=== PATIENT | male | born 1960 | race Caucasian/White ===

== ENCOUNTER 2016-11-26 23:42 | Emergency (ER) | payer MEDICARE ==
[2016-11-26] MEDS ORDERED: Ondansetron INJ* 2 MG/ML VIAL IV ONE (23:45)
[2016-11-26] MEDS ORDERED: HYDROmorphone* 1 MG/ML 1 ML SYR IV ONE (23:45)
[2016-11-26] MEDS ORDERED: NS 0.9% 1000 ML* 1,000 ML IV ONE (23:45)
[2016-11-27 00:36] LABS: Hematocrit 45 % (42-52); Mean Corpuscular HGB Conc 33 g/dl (31-36); Mean Corpuscular Hemoglobin 31 pg (27-31); Mean Corpuscular Volume 92 fL (80-94); Mean Platelet Volume 11 um3 (7.4-10.4); Red Cell Distribution Width 18 % (10.5-15); White Blood Count 11.4 10^3/ul (3.5-10.8)
[2016-11-27 00:42] LABS: Albumin 4.1 g/dL (3.2-5.2); BUN/Creatinine Ratio 13.4 (8-20); C Reactive Protein 8.36 mg/L (< 5.00); Calcium 9.7 mg/dL (8.6-10.3); EGFR African American 71.2 (>60); EGFR Non-African American 55.3 (>60); Globulin 3.3 g/dL (2-4); Total Bilirubin 0.9 mg/dL (0.2-1.0); Total Protein 7.4 g/dL (6.4-8.9)
[2016-11-27] MEDS ORDERED: Iodixanol* (CONTRAST) 320 MG/ML 100 ML SDV IV ONE (01:06)
[2016-11-27] MEDS ORDERED: HYDROmorphone* 1 MG/ML 1 ML SYR IV SLOW PU ONE (01:39)
[2016-11-27] MEDS ORDERED: HYDROmorphone* 1 MG/ML 1 ML SYR IV ONE (02:11)
[2016-11-27 03:58] LABS: Uric Acid 8.7 mg/dL (4.4-7.6)
[2016-11-27] MEDS ORDERED: Colchicine* 0.6 MG TAB PO ONE (04:02)
[2016-11-27] MEDS ORDERED: HYDROcodone/ACETAMIN 5-325 MG* 1 TAB PO ONE (04:04)
--- NOTE | 2016-11-27 04:16 | ED ---
IPrasanna,Lali, scribed for Gabby Fisher MD on 11/27/16 at 0004 . Lower Extremity - HPI Summary HPI Summary: This 55 y/o male presents to ED via ambulance for acute on chronic RLE leg pain since 1400 PM. Pt was able to ambulate fine without much problem earlier today, except for his chronic hip pain. He experienced sudden onset of pain at RLE ankle/leg about 1400 PM without any known trauma. PMHx is significant for DVT, DM, CAD s/p stents, CHF, and afib, with reported "fluid build up" per pt. Pt is currently on anticoagulant. - History of Current Complaint Chief Complaint: EDShortnessOfBreath Stated Complaint: RT LEG PAIN Time Seen by Provider: 11/26/16 23:45 Hx Obtained From: Patient, Medical Records Mechanism Of Injury: Unknown Onset of Pain: Immediate Pain Intensity: 9 Pain Scale Used: 0-10 Numeric Timing: Constant Location: Is Discrete @ - RLE Character Of Pain: Sharp Aggravating Factor(s): Standing Alleviating Factor(s): Rest Able to Bear Weight: No - Allergies/Home Medications Allergies/Adverse Reactions: Allergies Allergy/AdvReac Type Severity Reaction Status Date / Time No Known Allergies Allergy Verified 11/27/16 01:00 Home Medications: Home Medications Docusate CAP* [Colace Cap*] 100 mg PO BID 11/27/16 [History Confirmed 11/27/16] PMH/Surg Hx/FS Hx/Imm Hx Endocrine/Hematology History: Reports: Hx Anticoagulant Therapy - coumadin, Hx Diabetes Denies: Hx Blood Disorders, Hx Blood Transfusions, Hx Bone Marrow Disease, Hx Systemic Lupus Erythematosus, Hx Sickle Cell Disease, Hx Thyroid Disease, Hx Anemia, Hx Unexplained Bleeding, Other Endocrine/Hematological Disorders Cardiovascular History: Reports: Hx Angioplasty, Hx Auto Implanted Cardiovert Defib - defibrillator, Hx Congestive Heart Failure, Hx Coronary Artery Disease, Hx Hypertension, Hx Pacemaker/ICD, Other Cardiovascular Problems/Disorders - Pt states one valve doesn't function anymore Denies: Hx Aneurysm, Hx Angina, Hx Cardiac Arrest, Hx Cardiomegaly, Hx Congenital Heart Disease, Hx Deep Vein Thrombosis, Hx Embolism, Hx Hypercholesterolemia, Hx Hypotension, Hx Peripheral Vascular Disease, Hx Rheumatic Fever, Hx Syncope, Hx Valvular Heart Disease Respiratory History: Reports: Hx Chronic Bronchitis - last couple of months not current, Hx Chronic Obstructive Pulmonary Disease (COPD), Hx Pneumonia - winter 2009, Hx Sleep Apnea - uses O2 to sleep at night Denies: Hx Asthma, Hx Cystic Fibrosis, Hx Lung Cancer, Hx Pleural Effusion, Hx Pulmonary Edema, Hx Pulmonary Embolism, Hx Seasonal Allergies, Other Respiratory Problems/Disorders GI History: Reports: Hx Hiatal Hernia, Other GI Disorders - hernia in upper abdomen Denies: Hx Cirrhosis, Hx Crohn's Disease, Hx Diverticulosis, Hx Gall Bladder Disease, Hx Gastroesophageal Reflux Disease, Hx Gastrointestinal Bleed, Hx Irritable Bowel, Hx Jaundice, Hx Obstructive Bowel, Hx Ileostomy, Hx Pyloric Stenosis, Hx Ulcer History: Denies: Hx Acute Renal Failure, Hx Benign Prostatic Hyperplasia, Hx Chronic Renal Failure, Hx Dialysis, Hx Kidney Infection, Hx Kidney Stones, Hx Renal Disease, Other Problems/Disorders Musculoskeletal History: Reports: Other Musculoskeletal History - hiatal hernia Sensory History: Reports: Hx Contacts or Glasses - does not have glasses with him Denies: Hx Cataracts, Hx Eye Injury, Hx Eye Prosthesis, Hx Glaucoma, Hx Macular Degeneration, Hx Vision Problem, Hx Deafness, Hx Hearing Aid, Hx Hearing Problem, Other Sensory Impairments Opthamlomology History: Reports: Hx Contacts or Glasses - does not have glasses with him Denies: Hx Cataracts, Hx Eye Injury, Hx Eye Prosthesis, Hx Glaucoma, Hx Macular Degeneration, Hx Vision Problem, Other Sensory Impairments Neurological History: Denies: Hx Dementia, Hx Developmental Delay, Hx Headaches, Hx Migraine, Hx Nerve Disease, Hx Seizures, Hx Spinal Cord Injury, Hx Transient Ischemic Attacks (TIA), Other Neuro Impairments/Disorders Psychiatric History: Reports: Hx Substance Abuse - NONE X 5 YRS, Other Psychiatric Issues/Disorders - former alcoholic - Surgical History Surgery Procedure, Year, and Place: defibrillator. thrombectomy (lower leg scars) Hx Anesthesia Reactions: No Infectious Disease History: No Infectious Disease History: Denies: Hx Clostridium Difficile, Hx Hepatitis, Hx Human Immunodeficiency Virus (HIV), Hx Shingles, Hx Tuberculosis, Traveled Outside the [place] in Last 30 Days - Social History Alcohol Use: None Substance Use Type: Reports: None Smoking Status (MU): Heavy Every Day Tobacco Smoker Type: Cigarettes Length of Time of Smoking/Using Tobacco: 30+ years Have You Smoked in the Last Year: Yes Review of Systems Negative: Fever Positive: Shortness Of Breath Positive: Other - RLE pain All Other Systems Reviewed And Are Negative: Yes Physical Exam Triage Information Reviewed: Yes Vital Signs On Initial Exam: Initial Vitals Temp Pulse Resp BP Pulse Ox 98.3 F 83 15 96/55 97 11/26/16 23:48 11/26/16 23:48 11/26/16 23:48 11/26/16 23:48 11/26/16 23:48 Vital Signs Reviewed: Yes Appearance: Positive: Pain Distress Head/Face: Positive: Normal Head/Face Inspection Eyes: Positive: EOMI, AMANDA Neck: Positive: Supple, Nontender Cardiovascular: Positive: RRR, Other - Faint pulse at RLE DP Abdomen Description: Positive: Nontender, Soft Musculoskeletal: Positive: Other - diffusely tender at RLE foot Neurological: Positive: Sensory/Motor Intact, Alert, Oriented to Person Place, Time Psychiatric: Positive: Affect/Mood Appropriate AVPU Assessment: Alert Diagnostics - Vital Signs Vital Signs Temp Pulse Resp BP Pulse Ox 11/26/16 23:48 98.3 F 83 15 96/55 97 - Laboratory Lab Results: Lab Results 11/27/16 11/27/16 11/27/16 Range/Units 00:08 00:08 00:08 WBC 11.4 H (3.5-10.8) 10^3/ul RBC 4.90 (4.0-5.4) 10^6/ul Hgb 15.0 (14.0-18.0) g/dl Hct 45 (42-52) % MCV 92 (80-94) fL MCH 31 (27-31) pg MCHC 33 (31-36) g/dl RDW 18 H (10.5-15) % Plt Count 105 L (150-450) 10^3/ul MPV 11 H (7.4-10.4) um3 Neut % (Auto) 81.7 (38-83) % Lymph % (Auto) 9.2 L (25-47) % [place] % (Auto) 7.4 (1-9) % Eos % (Auto) 1.1 (0-6) % Baso % (Auto) 0.6 (0-2) % Absolute Neuts (auto) 9.3 H (1.5-7.7) 10^3/ul Absolute Lymphs (auto) 1.1 (1.0-4.8) 10^3/ul Absolute Monos (auto) 0.8 (0-0.8) 10^3/ul Absolute Eos (auto) 0.1 (0-0.6) 10^3/ul Absolute Basos (auto) 0.1 (0-0.2) 10^3/ul Absolute Nucleated RBC 0.01 10^3/ul Nucleated RBC % 0.1 Sodium 127 L (133-145) mmol/L Potassium 4.0 (3.5-5.0) mmol/L Chloride 92 L (101-111) mmol/L Carbon Dioxide 26 (22-32) mmol/L Anion Gap 9 (2-11) mmol/L BUN 18 (6-24) mg/dL Creatinine 1.34 H (0.67-1.17) mg/dL Est GFR ( Amer) 71.2 (>60) Est GFR (Non-Af Amer) 55.3 (>60) BUN/Creatinine Ratio 13.4 (8-20) Glucose 258 H (70-100) mg/dL Lactic Acid 2.4 H* (0.5-2.0) mmol/L Uric Acid 8.7 H (4.4-7.6) mg/dL Calcium 9.7 (8.6-10.3) mg/dL Total Bilirubin 0.90 (0.2-1.0) mg/dL AST 17 (13-39) U/L ALT 24 (7-52) U/L Alkaline Phosphatase 89 (34-104) U/L C-Reactive Protein 8.36 H (< 5.00) mg/L Total Protein 7.4 (6.4-8.9) g/dL Albumin 4.1 (3.2-5.2) g/dL Globulin 3.3 (2-4) g/dL Albumin/Globulin Ratio 1.2 (1-3) Result Diagrams: 11/27/16 00:08 11/27/16 00:08 Lab Statement: Any lab studies that have been ordered have been reviewed, and results considered in the medical decision making process. - Radiology RLE ankle Xray Interpretation: No Acute Changes Radiology Interpretation Completed By: ED Physician - CT CTA RLE CT Interpretation: Positive (See Comments) - Right common iliac artery occlusion , possibly chronic, with small right external iliac artery. Bilateral artery atherosclerosis with good bilat 3 vessel runoff to and patent dorsalis pedis arteries bilat. CT Interpretation Completed By: Radiologist Lower Extremity Course/Dx - Course Course Of Treatment: 55 yo male smoker with severe pvd and cad arrived with severe acute pain in right foot with faint dp pulses but complaining that he knew that his right artery (iliac) was blocked. An emergent CTA was done showing this blockage but with adequate 3 vessel flow distally. Pt required several doses of pain meds to get a good history/exam which ended up showing very localized swelling/pain to lateral malleolus on the right. uric acid was elevated, Dr. Quispe did consult and agreed with this diagnosis. Given pts chronic renal insufficiency pt was started on colchicine and medrol dosepack with pain meds - Diagnoses Provider Diagnoses: Gout - Physician Notifications Discussed Care Of Patient With: Darrel Hilton Time Discussed With Above Provider: 03:56 Discharge - Discharge Plan Condition: Stable Disposition: HOME Prescriptions: Colchicine* [Colcrys*] 0.6 mg PO DAILY #14 tab HYDROcodone/ACETAMIN 5-325 MG* [[place] 5-325 TAB*] 1 tab PO Q8H PRN #14 tab MDD 3 PRN Reason: Pain Methylprednisolone [Medrol Dosepak 4 MG*] 0 mg PO .SEE SANRDO INSTRUCTION #1 sandro Patient Education Materials: Gout (ED) Referrals: Jamari Rangel MD [Primary Care Provider] - 2 Days The documentation as recorded by the Prasanna couch Soohyun accurately reflects the service I personally performed and the decisions made by me, Gabby Fisher MD.
--- NOTE | 2016-11-27 04:53 | CONSULT ---
Consult Consult: PCP: Mitul Rangel MD Date/Time of Evaluation: [id number] Reason for Consult: non-traumatic severe R foot pain HPI: Mr Cam is a 55YO overweight male HX LLE arterial clot s/p thrombectomy, chronic AFIB, ischemic cardiomyopathy EF <20%, AICD placement, HTN, HLD, CAD/ stent x3, CVA x2 who present with onset of R ankle/foot tingling around noon progressing to severe, unbearable, 10/10 pain by 1700. He denies injury or change in activity. He denies HX gout, but thinks his uncle may have had it. He denies F/C, N/V, change in bowel/bladder, chest pain, SOB, or other issues. He did report some SOB upon arrival, but state he thinks now it was just being anxious about the pain. PMedHx as above Ambulatory Orders Aspirin EC Low Dose* [Ecotrin EC Low Dose 81 MG*] 81 mg PO QAM 07/11/14 Atorvastatin* [Lipitor 80 MG*] 80 mg PO DAILY 07/11/14 Cyanocobalamin TAB* [Vitamin B12 TAB*] 1,000 mcg PO DAILY 07/11/14 Lisinopril TAB* [Prinivil TAB 10 MG*] 10 mg PO QAM 07/11/14 Metoprolol Tartrate TAB* [Lopressor TAB*] 150 mg PO QAM 07/11/14 Metoprolol Tartrate TAB* [Lopressor TAB*] 150 mg PO QPM 07/11/14 Polyethylene Glycol 3350* [Miralax*] 17 gm PO DAILY 07/11/14 Warfarin TAB(*) [Coumadin TAB(*)] 2.5 mg PO SEE INSTRUCTIONS 07/11/14 Warfarin TAB(*) [Coumadin TAB(*)] 5 mg PO SEE INSTRUCTIONS 07/11/14 Albuterol HFA INHALER* [Ventolin HFA Inhaler*] 2 puff INH Q4H PRN 09/14/14 Omeprazole CAP* [Prilosec CAP* 20 MG] 20 mg PO DAILY 09/14/14 Fluticasone-Salmeterol 250-50* 1 puff INH BID 04/25/15 Magnesium 250 mg PO DAILY 04/25/15 Spironolactone [Aldactone 25 MG-] 25 mg PO Q48HR 04/25/15 Torsemide 80 mg PO BID 04/25/15 glipiZIDE TAB.XL* [Glucotrol Xl*] 10 mg PO DAILY 04/25/15 Colchicine* [Colcrys*] 0.6 mg PO DAILY #14 tab 11/27/16 Docusate CAP* [Colace Cap*] 100 mg PO BID 11/27/16 HYDROcodone/ACETAMIN 5-325 MG* [[place] 5-325 TAB*] 1 tab PO Q8H PRN #14 tab MDD 3 11/27/16 Methylprednisolone [Medrol Dosepak 4 MG*] 0 mg PO .SEE SANDRO INSTRUCTION #1 sandro Allergies No Known Allergies Allergy (Verified 11/27/16 01:00) ROS: as above, otherwise reviewed and all were negative Constitutional: NAD, normally developed, overweight white male vitals: Vital Signs Temp 36.8 C 11/26/16 23:48 Pulse 76 11/27/16 03:00 Resp 16 11/27/16 03:00 BP 94/45 11/27/16 03:00 Pulse Ox 93 11/27/16 03:00 Intake & Output 11/26/16 11/26/16 11/27/16 11:59 23:59 11:59 Intake Total 1000 Balance 1000 Weight 88.178 kg 87.997 kg Intake: IV Fluids 1000 Musculoskeletal: general: grossly intact; exquisite tenderness to palpation of swelling around the lateral maleolus, remainder of foot is non-tender but there is severe pain with minimal ROM of the ankle; 1+ R DP/ trace R PT Integumental: no wounds around the R ankle/foot extremity is warm & dry with good color, capillary refill is <2seconds Psychiatric orientation: AA&O to PPS affect: calm mood: cooperative eye contact: good content: reliable responses: timely insight: good Testing: Lab Results 11/27/16 11/27/16 11/27/16 Range/Units 00:08 00:08 00:08 WBC 11.4 H (3.5-10.8) 10^3/ul RBC 4.90 (4.0-5.4) 10^6/ul Hgb 15.0 (14.0-18.0) g/dl Hct 45 (42-52) % MCV 92 (80-94) fL MCH 31 (27-31) pg MCHC 33 (31-36) g/dl RDW 18 H (10.5-15) % Plt Count 105 L (150-450) 10^3/ul MPV 11 H (7.4-10.4) um3 Neut % (Auto) 81.7 (38-83) % Lymph % (Auto) 9.2 L (25-47) % [place] % (Auto) 7.4 (1-9) % Eos % (Auto) 1.1 (0-6) % Baso % (Auto) 0.6 (0-2) % Absolute Neuts (auto) 9.3 H (1.5-7.7) 10^3/ul Absolute Lymphs (auto) 1.1 (1.0-4.8) 10^3/ul Absolute Monos (auto) 0.8 (0-0.8) 10^3/ul Absolute Eos (auto) 0.1 (0-0.6) 10^3/ul Absolute Basos (auto) 0.1 (0-0.2) 10^3/ul Absolute Nucleated RBC 0.01 10^3/ul Nucleated RBC % 0.1 Sodium 127 L (133-145) mmol/L Potassium 4.0 (3.5-5.0) mmol/L Chloride 92 L (101-111) mmol/L Carbon Dioxide 26 (22-32) mmol/L Anion Gap 9 (2-11) mmol/L BUN 18 (6-24) mg/dL Creatinine 1.34 H (0.67-1.17) mg/dL Est GFR ( Amer) 71.2 (>60) Est GFR (Non-Af Amer) 55.3 (>60) BUN/Creatinine Ratio 13.4 (8-20) Glucose 258 H (70-100) mg/dL Lactic Acid 2.4 H* (0.5-2.0) mmol/L Uric Acid 8.7 H (4.4-7.6) mg/dL Calcium 9.7 (8.6-10.3) mg/dL Total Bilirubin 0.90 (0.2-1.0) mg/dL AST 17 (13-39) U/L ALT 24 (7-52) U/L Alkaline Phosphatase 89 (34-104) U/L C-Reactive Protein 8.36 H (< 5.00) mg/L Total Protein 7.4 (6.4-8.9) g/dL Albumin 4.1 (3.2-5.2) g/dL Globulin 3.3 (2-4) g/dL Albumin/Globulin Ratio 1.2 (1-3) Impression: 55M with gradual onset of R foot pain focused on the talo-tibial joint with a uric acid of 8.7 and a CTA of the extremity showing a R iliofemoral occlusion with reconstitution of flow distally and good flow to the DP DIAGNOSIS & PLAN Primary gout, initial attack : colchicine : short steroid taper : avoid high protein foods and alcohol : follow up with PCP in <1 week : return to ED for uncontrolled pain, palor and coldness of the extremity, or other issues he feels warrant emergency evaluation
[2016-11-27 05:22] VITALS: BP 100/54
--- NOTE | 2016-11-27 09:09 | RAD ---
Indication: Sudden onset severe RIGHT leg pain. Known RIGHT leg stenosis. Comparison: June 22, 2009 ankle brachial index. September 14, [address] Technique: CT angiogram abdominal aorta from the level of the renal arteries through the bilateral lower extremities. 125 mL Visipaque 320 contrast administered IV. Multiplanar reformation with maximum intensity projection. 3-D arterial volume rendering. REPORT: ABDOMINAL AORTA: Normal diameter infrarenal abdominal aorta with mild calcific and noncalcific plaque without hemodynamic significant stenosis resulting. Negative for hemodynamic significant stenosis of the solitary bilateral renal arteries. Normal opacification of the inferior mesenteric artery. RIGHT ILIAC and LOWER EXTREMITY ARTERIES: Occlusive thrombosis of the RIGHT common iliac artery. Collateral reconstitution of the RIGHT external and internal iliac arteries. However the reconstituted arteries are diminutive in size. Diminutive size of the RIGHT external and internal iliac arteries is unchanged compared with the September 14, [address] Calcific and noncalcific plaque at the adductor canal with resulting approximate 50% stenosis of the distal segment of the superficial femoral artery. Unremarkable popliteal artery. Three-vessel runoff to the RIGHT ankle. LEFT ILIAC and LOWER EXTREMITY ARTERIES: Mild to moderate calcific and noncalcific plaque at the LEFT common iliac artery with approximate 30% stenoses resulting. Approximate 20% stenosis at the LEFT common femoral artery. Approximate 50% stenosis at the distal LEFT superficial femoral artery at the adductor canal. Approximate 30% short segment stenosis at the supra geniculate popliteal artery. Three-vessel runoff to the LEFT ankle. NON-VASCULAR FINDINGS: Unchanged 1.8 cm hypodense cortical lesion at the posterior midpole the RIGHT kidney compared with a CT from September 14, 2014 without concern. No suspicious abnormality of the visualized alimentary tract. Negative for suspicious osseous lesions. IMPRESSION: 1. 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 Collateral reconstitution with three-vessel runoff to the ankle as described. Approximate 50% stenosis of the distal segment of the RIGHT superficial femoral artery. Three-vessel runoff to the RIGHT ankle. 2. Approximate 30% LEFT common iliac, 20% LEFT common femoral, 50% LEFT superficial femoral artery, 30% suprageniculate popliteal artery stenosis. Three-vessel runoff to the LEFT ankle.
--- NOTE | 2016-11-27 09:28 | RAD ---
Indication: RIGHT lateral malleolus pain. Sudden onset. Peripheral vascular disease. Comparison: CT angiogram of the same day Technique: AP, mortise, and lateral views RIGHT ankle. Report: Normal articular alignment. Negative for fracture. Osteoarthritis most prominent at the navicula cuneiform articulations moderate in severity with osteophytosis, moderate joint space narrowing, and subchondral sclerosis and cystic change. Based on correlation with CT the arthropathy specifically involves the navicula lateral cuneiform articulation. Suggestion of small talocrural joint effusion with distention of the posterior recess. Soft tissue swelling about the ankle without significant focality. IMPRESSION: Negative for fracture or malalignment. Osteoarthritis.
== END 2016-11-27 04:50 | disposition home or self-care (01) ==
LOC: ED 23:42
DX: M10.9 Gout, unspecified (principal); M79.604 Pain in right leg; R06.02 Shortness of breath; F17.210 Nicotine dependence, cigarettes, uncomplicated
CPT/HCPCS: 36415; 73706; 80053; 83605; 84550; 85025; 86140; 99284; J1170; J2405; Q9967

== ENCOUNTER 2017-01-19 04:46 | Emergency (ER) | payer MEDICARE ==
[2017-01-19 04:51] VITALS: BP 96/61
[2017-01-19] MEDS ORDERED: NS 0.9% 1000 ML* 500 ML IV ONE (05:46)
[2017-01-19] MEDS ORDERED: HYDROmorphone INJ* 1 MG/ML CARPUJECT SYRINGE IV ONE (05:46)
[2017-01-19] MEDS ORDERED: Ondansetron INJ* 2 MG/ML VIAL IV ONE (05:46)
[2017-01-19] MEDS ORDERED: Colchicine* 0.6 MG TAB PO ONE (05:54)
[2017-01-19 06:22] LABS: Hematocrit 42 % (42-52); Hemoglobin 14.8 g/dl (14.0-18.0); Mean Corpuscular HGB Conc 35 g/dl (31-36); Mean Corpuscular Hemoglobin 32 pg (27-31); Mean Corpuscular Volume 92 fL (80-94); Mean Platelet Volume 11 um3 (7.4-10.4); Red Blood Count 4.61 10^6/ul (4.0-5.4); Red Cell Distribution Width 16 % (10.5-15); White Blood Count 10.2 10^3/ul (3.5-10.8)
[2017-01-19 06:38] LABS: Albumin 4.1 g/dL (3.2-5.2); BUN/Creatinine Ratio 9.7 (8-20); C Reactive Protein 16.51 mg/L (< 5.00); Calcium 9.8 mg/dL (8.6-10.3); EGFR African American 65.3 (>60); EGFR Non-African American 50.7 (>60); Globulin 3.3 g/dL (2-4); Potassium 3.6 mmol/L (3.5-5.0); Total Bilirubin 1.1 mg/dL (0.2-1.0); Total Protein 7.4 g/dL (6.4-8.9)
--- NOTE | 2017-01-19 06:50 | ED ---
Gerda Kearns Alfonso, scribed for Gabby Fisher MD on 01/19/17 at 0502 . Lower Extremity - HPI Summary HPI Summary: This patient is a 56 year old M presenting [facility] accompanied by with a chief complaint of right ankle pain since 2 days ago. The patient rates the pain 10/10 in severity. Symptoms aggravated by movement. Symptoms alleviated by rest. He cannot ambulate well. He reports a PCP appointment scheduled for tomorrow. PMHx includes gout and DM. - History of Current Complaint Chief Complaint: EDExtremityLower Stated Complaint: GOUT Time Seen by Provider: 01/19/17 04:57 Hx Obtained From: Patient Onset of Pain: Prior to Arrival Onset/Duration: Days - 2 Severity Currently: Severe Pain Intensity: 10 Pain Scale Used: 0-10 Numeric Location: Is Discrete @ - right ankle pain Aggravating Factor(s): Movement Alleviating Factor(s): Rest - Allergies/Home Medications Allergies/Adverse Reactions: Allergies Allergy/AdvReac Type Severity Reaction Status Date / Time No Known Allergies Allergy Verified 01/19/17 04:51 PMH/Surg Hx/FS Hx/Imm Hx Endocrine/Hematology History: Reports: Hx Anticoagulant Therapy - coumadin, Hx Diabetes Denies: Hx Blood Disorders, Hx Blood Transfusions, Hx Bone Marrow Disease, Hx Systemic Lupus Erythematosus, Hx Sickle Cell Disease, Hx Thyroid Disease, Hx Anemia, Hx Unexplained Bleeding, Other Endocrine/Hematological Disorders Cardiovascular History: Reports: Hx Angioplasty, Hx Auto Implanted Cardiovert Defib - defibrillator, Hx Congestive Heart Failure, Hx Coronary Artery Disease, Hx Hypertension, Hx Pacemaker/ICD, Other Cardiovascular Problems/Disorders - Pt states one valve doesn't function anymore Denies: Hx Aneurysm, Hx Angina, Hx Cardiac Arrest, Hx Cardiomegaly, Hx Congenital Heart Disease, Hx Deep Vein Thrombosis, Hx Embolism, Hx Hypercholesterolemia, Hx Hypotension, Hx Peripheral Vascular Disease, Hx Rheumatic Fever, Hx Syncope, Hx Valvular Heart Disease Respiratory History: Reports: Hx Chronic Bronchitis - last couple of months not current, Hx Chronic Obstructive Pulmonary Disease (COPD), Hx Pneumonia - winter 2009, Hx Sleep Apnea - uses O2 to sleep at night Denies: Hx Asthma, Hx Cystic Fibrosis, Hx Lung Cancer, Hx Pleural Effusion, Hx Pulmonary Edema, Hx Pulmonary Embolism, Hx Seasonal Allergies, Other Respiratory Problems/Disorders GI History: Reports: Hx Hiatal Hernia, Other GI Disorders - hernia in upper abdomen Denies: Hx Cirrhosis, Hx Crohn's Disease, Hx Diverticulosis, Hx Gall Bladder Disease, Hx Gastroesophageal Reflux Disease, Hx Gastrointestinal Bleed, Hx Irritable Bowel, Hx Jaundice, Hx Obstructive Bowel, Hx Ileostomy, Hx Pyloric Stenosis, Hx Ulcer History: Denies: Hx Acute Renal Failure, Hx Benign Prostatic Hyperplasia, Hx Chronic Renal Failure, Hx Dialysis, Hx Kidney Infection, Hx Kidney Stones, Hx Renal Disease, Other Problems/Disorders Musculoskeletal History: Reports: Other Musculoskeletal History - hiatal hernia Sensory History: Reports: Hx Contacts or Glasses - does not have glasses with him Denies: Hx Cataracts, Hx Eye Injury, Hx Eye Prosthesis, Hx Glaucoma, Hx Macular Degeneration, Hx Vision Problem, Hx Deafness, Hx Hearing Aid, Hx Hearing Problem, Other Sensory Impairments Opthamlomology History: Reports: Hx Contacts or Glasses - does not have glasses with him Denies: Hx Cataracts, Hx Eye Injury, Hx Eye Prosthesis, Hx Glaucoma, Hx Macular Degeneration, Hx Vision Problem, Other Sensory Impairments Neurological History: Denies: Hx Dementia, Hx Developmental Delay, Hx Headaches, Hx Migraine, Hx Nerve Disease, Hx Seizures, Hx Spinal Cord Injury, Hx Transient Ischemic Attacks (TIA), Other Neuro Impairments/Disorders Psychiatric History: Reports: Hx Substance Abuse - NONE X 5 YRS, Other Psychiatric Issues/Disorders - former alcoholic - Surgical History Surgery Procedure, Year, and Place: defibrillator. thrombectomy (lower leg scars) Hx Anesthesia Reactions: No Infectious Disease History: No Infectious Disease History: Denies: Hx Clostridium Difficile, Hx Hepatitis, Hx Human Immunodeficiency Virus (HIV), Hx Shingles, Hx Tuberculosis, Traveled Outside the [place] in Last 30 Days - Family History Known Family History: Positive: Cardiac Disease, Diabetes - Social History Alcohol Use: None Substance Use Type: Reports: None Smoking Status (MU): Heavy Every Day Tobacco Smoker Type: Cigarettes Length of Time of Smoking/Using Tobacco: 30+ years Have You Smoked in the Last Year: Yes Review of Systems Negative: Fever Positive: Other - right ankle pain All Other Systems Reviewed And Are Negative: Yes Physical Exam - Summary Physical Exam Summary: General: Well appearing, no pain distress Skin: Warm, Skin Color Reflects Adequate Perfusion, Dry Eyes: EOMI, AMANDA ENT: Pharynx normal, TMs normal Neck: Supple, nontender Respiratory: CTA, breath sounds present, no rhonchi, no wheezes, no rales Cardiovascular: IRR, no murmur, no rub, no gallop Abdomen: Soft, nontender, Non-distended, no guarding, no rebound Bowel: Present Musculoskeletal: Right lateral malleolus tenderness. Warm toes. Faint pulses in right foot. Neuro: Sensory/motor intact, A&Ox3, CN intact 2-12 Psych: Affect/mood appropriate Triage Information Reviewed: Yes Vital Signs On Initial Exam: Initial Vitals Temp Pulse Resp BP Pulse Ox 98.4 F 82 23 96/61 98 01/19/17 04:48 01/19/17 04:48 01/19/17 04:48 01/19/17 04:48 01/19/17 04:48 Vital Signs Reviewed: Yes Diagnostics - Vital Signs Vital Signs Temp Pulse Resp BP Pulse Ox 01/19/17 04:48 98.4 F 82 23 96/61 98 - Laboratory Lab Results: Lab Results 01/19/17 01/19/17 Range/Units 06:00 06:00 WBC 10.2 (3.5-10.8) 10^3/ul RBC 4.61 (4.0-5.4) 10^6/ul Hgb 14.8 (14.0-18.0) g/dl Hct 42 (42-52) % MCV 92 (80-94) fL MCH 32 H (27-31) pg MCHC 35 (31-36) g/dl RDW 16 H (10.5-15) % Plt Count 117 L (150-450) 10^3/ul MPV 11 H (7.4-10.4) um3 Neut % (Auto) 84.5 H (38-83) % Lymph % (Auto) 6.6 L (25-47) % [place] % (Auto) 7.6 (1-9) % Eos % (Auto) 0.8 (0-6) % Baso % (Auto) 0.5 (0-2) % Absolute Neuts (auto) 8.6 H (1.5-7.7) 10^3/ul Absolute Lymphs (auto) 0.7 L (1.0-4.8) 10^3/ul Absolute Monos (auto) 0.8 (0-0.8) 10^3/ul Absolute Eos (auto) 0.1 (0-0.6) 10^3/ul Absolute Basos (auto) 0.1 (0-0.2) 10^3/ul Absolute Nucleated RBC 0.01 10^3/ul Nucleated RBC % 0.1 Sodium 131 L (133-145) mmol/L Potassium 3.6 (3.5-5.0) mmol/L Chloride 94 L (101-111) mmol/L Carbon Dioxide 28 (22-32) mmol/L Anion Gap 9 (2-11) mmol/L BUN 14 (6-24) mg/dL Creatinine 1.44 H (0.67-1.17) mg/dL Est GFR ( Amer) 65.3 (>60) Est GFR (Non-Af Amer) 50.7 (>60) BUN/Creatinine Ratio 9.7 (8-20) Glucose 206 H (70-100) mg/dL Uric Acid 11.0 H (4.4-7.6) mg/dL Calcium 9.8 (8.6-10.3) mg/dL Total Bilirubin 1.10 H (0.2-1.0) mg/dL AST 15 (13-39) U/L ALT 16 (7-52) U/L Alkaline Phosphatase 116 H (34-104) U/L C-Reactive Protein 16.51 H (< 5.00) mg/L Total Protein 7.4 (6.4-8.9) g/dL Albumin 4.1 (3.2-5.2) g/dL Globulin 3.3 (2-4) g/dL Albumin/Globulin Ratio 1.2 (1-3) Result Diagrams: 01/19/17 06:00 01/19/17 06:00 Lab Statement: Any lab studies that have been ordered have been reviewed, and results considered in the medical decision making process. Lower Extremity Course/Dx - Course Course Of Treatment: 56 yo male with pvd and gout here with gout, given 1.2 mg colchicine with steroid pack. - Diagnoses Provider Diagnoses: Gout Discharge - Discharge Plan Condition: Stable Disposition: HOME Prescriptions: HYDROcodone/ACETAMIN 5-325 MG* [[place] 5-325 TAB*] 2 tab PO Q8H PRN #18 tab MDD 6 PRN Reason: Pain Methylprednisolone [Medrol Dosepak 4 MG*] 4 mg PO .SEE SANDRO INSTRUCTION #1 sandro The documentation as recorded by the Gerda couch Alfonso accurately reflects the service I personally performed and the decisions made by me, Gabby Fisher MD.
== END 2017-01-19 07:11 | disposition home or self-care (01) ==
LOC: ED 04:46
DX: M10.9 Gout, unspecified (principal); M25.571 Pain in right ankle and joints of right foot; F17.210 Nicotine dependence, cigarettes, uncomplicated; Z79.01 Long term (current) use of anticoagulants; E13.9 Other specified diabetes mellitus without complications
CPT/HCPCS: 36415; 80053; 84550; 85025; 86140; 96374; 96375; 99284; J1170; J2405

== ENCOUNTER 2017-06-04 16:14 | Inpatient (IN) | payer MEDICARE ==
[2017-06-04 17:30] LABS: Hematocrit 41 % (42-52); Hemoglobin 13.5 g/dl (14.0-18.0); Mean Corpuscular HGB Conc 33 g/dl (31-36); Mean Corpuscular Hemoglobin 31 pg (27-31); Mean Corpuscular Volume 94 fL (80-94); Mean Platelet Volume 11 um3 (7.4-10.4); Platelet Count 125 10^3/ul (150-450); Red Blood Count 4.37 10^6/ul (4.0-5.4); Red Cell Distribution Width 17 % (10.5-15); White Blood Count 7.6 10^3/ul (3.5-10.8)
[2017-06-04 17:47] LABS: INR 7.58 (0.77-1.02)
[2017-06-04 17:49] LABS: ABS Basophils 0.1 10^3/ul (0-0.2); ABS Eosinophils 0.2 10^3/ul (0-0.6); ABS Lymphocytes 0.7 10^3/ul (1.0-4.8); ABS Monocytes 0.5 10^3/ul (0-0.8); ABS Neutrophils 6.1 10^3/ul (1.5-7.7); ABS Nucleated RBC 0 10^3/ul; Lymphocyte % 9.8 % (25-47); Nucleated Red Blood Cells % 0.1
--- NOTE | 2017-06-04 18:17 | RAD ---
Indication: Shortness of breath. Chronic obstructive pulmonary disease. Comparison: No relevant prior exams available on the [facility] PACS for comparison. Technique: Upright AP 1735 hours Report: Elevated lung volumes. Diffuse mild to moderate prominence of the interstitial markings with thickened peripheral interlobular septa. Mild perihilar opacities. Small pleural effusions likely. Negative for pneumothorax. Cardiomegaly. RIGHT ventricular level pacemaker lead. Prominent ill-defined central pulmonary vasculature. IMPRESSION: Pulmonary vascular congestion and interstitial edema. Probable associated small pleural effusions.
[2017-06-04 18:18] LABS: EGFR Non-African American 46.6 (>60)
[2017-06-04] MEDS ORDERED: Furosemide IV* 10 MG/ML 10 ML VIAL (100 MG) IV ONE (18:27)
[2017-06-04] MEDS ORDERED: Sucralfate TAB* 1 GM PO ONE (18:27)
[2017-06-04] MEDS ORDERED: Albuterol 2.5 MG/3 ML NEB.SOL* (0.083%) INH PRN (18:29)
[2017-06-04] MEDS ORDERED: Acetaminophen TAB* 325 MG PO PRN (18:29)
[2017-06-04] MEDS ORDERED: Albuterol HFA INHALER* 8 gm MDI INH PRN (18:30)
[2017-06-04] MEDS ORDERED: Dextrose 50% Syringe 50 ML* 25 GM/50 ML SYRINGE IV PUSH PRN (18:33)
[2017-06-04] MEDS ORDERED: Phytonadione Oral Solution* 5 MG/25 ML UDC PO ONE (19:46)
[2017-06-04] MEDS: Morphine INJ* 2 MG/ML 1 ML CARPUJECT IV PRN (20:36)
[2017-06-04] MEDS: Docusate CAP* 100 MG PO SCH (20:41)
[2017-06-04] MEDS: Allopurinol TAB* 100 MG PO SCH (20:41)
[2017-06-04] MEDS: Insulin LISPRO* 1 UNITS UNIT SUBCUT SCH (20:53)
[2017-06-04] MEDS ORDERED: Fluticasone-Salmeterol 100-50* DISKUS INH SCH (21:00)
--- NOTE | 2017-06-04 21:11 | ED ---
Damon Kearns Julia, scribed for Al Christianson MD on 06/04/17 at 1643 . Respiratory - HPI Summary HPI Summary: This patient is a 56 year old M presenting to [facility] with a chief complaint of gradually worsening SOB for the past four days to a week. Patient reports epigastric abdominal pain, bilateral arm numbness, and weight gain from 194.4 to 200.6 in a week. The patient rates the pain 8/10 in severity. He believes he has too much fluid. Pt has hx of CHF and constant A-fib. He is currently taking blood thinners. 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 - History of Current Complaint Chief Complaint: EDShortnessOfBreath Stated Complaint: SOB/DIFFICULTY BREATHING Time Seen by Provider: 06/04/17 16:23 Hx Obtained From: Patient Onset/Duration: Lasting Days Timing: Constant Initial Severity: Worse Since: - gradually for past week Pain Intensity: 8 Character: Dyspnea at Rest Associated Signs and Symptoms: SOB - epigastric abdominal pain, bilateral arm numbness, and weight gain from 194.4 to 200.6 in a week Related History: Similar Episode/Dx as - CHF - Allergy/Home Medications Allergies/Adverse Reactions: Allergies Allergy/AdvReac Type Severity Reaction Status Date / Time No Known Allergies Allergy Verified 01/19/17 04:51 Home Medications: Home Medications Allopurinol TAB* [Zyloprim 100 MG TAB*] 100 mg PO BID 06/04/17 [History Confirmed 06/04/17] Digoxin TAB* [Lanoxin TAB*] 0.125 mg PO EVERY OTHER DAY 06/04/17 [History Confirmed 06/04/17] Digoxin TAB* [Lanoxin TAB*] 0.25 mg PO EVERY OTHER DAY 06/04/17 [History Confirmed 06/04/17] Fluticasone-Salmeterol 100-50* [Advair Diskus 100-50*] 1 puff INH BID 06/04/17 [ History Confirmed 06/04/17] Lisinopril TAB* [Prinivil TAB*] 7.5 mg PO DAILY 06/04/17 [History Confirmed 03/11] Magnesium Oxide TAB* [MagOx 400 TAB*] 250 mg PO DAILY 06/04/17 [History Confirmed 06/04/17] Spironolactone TAB* [Aldactone TAB*] 25 mg PO EVERY OTHER DAY 06/04/17 [History Confirmed 06/04/17] Torsemide TAB* [Demadex*] 80 mg PO BID 06/04/17 [History Confirmed 06/04/17] metFORMIN* [Glucophage 500 MG TAB *] 500 mg PO BID 06/04/17 [History Confirmed 06/04/17] PMH/Surg Hx/FS Hx/Imm Hx Endocrine/Hematology History: Reports: Hx Anticoagulant Therapy - coumadin, Hx Diabetes Denies: Hx Blood Disorders, Hx Blood Transfusions, Hx Bone Marrow Disease, Hx Systemic Lupus Erythematosus, Hx Sickle Cell Disease, Hx Thyroid Disease, Hx Anemia, Hx Unexplained Bleeding, Other Endocrine/Hematological Disorders Cardiovascular History: Reports: Hx Angioplasty, Hx Auto Implanted Cardiovert Defib - defibrillator, Hx Congestive Heart Failure, Hx Coronary Artery Disease, Hx Hypertension, Hx Pacemaker/ICD, Other Cardiovascular Problems/Disorders - Pt states one valve doesn't function anymore Denies: Hx Aneurysm, Hx Angina, Hx Cardiac Arrest, Hx Cardiomegaly, Hx Congenital Heart Disease, Hx Deep Vein Thrombosis, Hx Embolism, Hx Hypercholesterolemia, Hx Hypotension, Hx Peripheral Vascular Disease, Hx Rheumatic Fever, Hx Syncope, Hx Valvular Heart Disease Respiratory History: Reports: Hx Chronic Bronchitis - last couple of months not current, Hx Chronic Obstructive Pulmonary Disease (COPD), Hx Pneumonia - winter 2009, Hx Sleep Apnea - uses O2 to sleep at night Denies: Hx Asthma, Hx Cystic Fibrosis, Hx Lung Cancer, Hx Pleural Effusion, Hx Pulmonary Edema, Hx Pulmonary Embolism, Hx Seasonal Allergies, Other Respiratory Problems/Disorders GI History: Reports: Hx Hiatal Hernia, Other GI Disorders - hernia in upper abdomen Denies: Hx Cirrhosis, Hx Crohn's Disease, Hx Diverticulosis, Hx Gall Bladder Disease, Hx Gastroesophageal Reflux Disease, Hx Gastrointestinal Bleed, Hx Irritable Bowel, Hx Jaundice, Hx Obstructive Bowel, Hx Ileostomy, Hx Pyloric Stenosis, Hx Ulcer History: Denies: Hx Acute Renal Failure, Hx Benign Prostatic Hyperplasia, Hx Chronic Renal Failure, Hx Dialysis, Hx Kidney Infection, Hx Kidney Stones, Hx Renal Disease, Other Problems/Disorders Musculoskeletal History: Reports: Other Musculoskeletal History - hiatal hernia Sensory History: Reports: Hx Contacts or Glasses - does not have glasses with him Denies: Hx Cataracts, Hx Eye Injury, Hx Eye Prosthesis, Hx Glaucoma, Hx Macular Degeneration, Hx Vision Problem, Hx Deafness, Hx Hearing Aid, Hx Hearing Problem, Other Sensory Impairments Opthamlomology History: Reports: Hx Contacts or Glasses - does not have glasses with him Denies: Hx Cataracts, Hx Eye Injury, Hx Eye Prosthesis, Hx Glaucoma, Hx Macular Degeneration, Hx Vision Problem, Other Sensory Impairments Neurological History: Denies: Hx Dementia, Hx Developmental Delay, Hx Headaches, Hx Migraine, Hx Nerve Disease, Hx Seizures, Hx Spinal Cord Injury, Hx Transient Ischemic Attacks (TIA), Other Neuro Impairments/Disorders Psychiatric History: Reports: Hx Substance Abuse - NONE X 5 YRS, Other Psychiatric Issues/Disorders - former alcoholic - Surgical History Surgery Procedure, Year, and Place: defibrillator. thrombectomy (lower leg scars) Hx Anesthesia Reactions: No Infectious Disease History: No Infectious Disease History: Denies: Hx Clostridium Difficile, Hx Hepatitis, Hx Human Immunodeficiency Virus (HIV), Hx Shingles, Hx Tuberculosis, Traveled Outside the [place] in Last 30 Days - Family History Known Family History: Positive: Cardiac Disease, Diabetes - Social History Alcohol Use: None Substance Use Type: Reports: None Smoking Status (MU): Heavy Every Day Tobacco Smoker Type: Cigarettes Length of Time of Smoking/Using Tobacco: 30+ years Have You Smoked in the Last Year: Yes Review of Systems Positive: Other - weight gain Positive: Shortness Of Breath Positive: Abdominal Pain Positive: Numbness - bilateral arms All Other Systems Reviewed And Are Negative: Yes Physical Exam - Summary Physical Exam Summary: Appearance: The patient is well-nourished in no acute distress and in no acute pain. Skin: The skin is warm and dry and skin color reflects adequate perfusion. HEENT: The head is normocephalic and atraumatic. The pupils are equal and reactive. The conjunctivae are clear and without drainage. Nares are patent and without drainage. Mouth reveals moist mucous membranes and the throat is without erythema and exudate. The external ears are intact. The ear canals are patent and without drainage. The tympanic membranes are intact. Neck: the neck is supple with full range of motion and non-tender. There are no carotid bruits. There is no neck vein distension. Respiratory: Chest is non-tender. Lungs are clear to auscultation and breath sounds are symmetrical and equal. Cardiovascular: Heart is irregularly irregular. There is no murmur or rub auscultated. There is no peripheral edema and pulses are symmetrical and equal. Abdomen: The abdomen is soft and non-tender. There are normal bowel sounds heard in all four quadrants and there is no organomegaly palpated. Musculoskeletal: There is no back tenderness noted. Extremities are non-tender with full range of motion. There is good capillary refill. There is no peripheral edema or calf tenderness elicited. Neurological: Patient is alert and oriented to person, place and time. The patient has symmetrical motor strength in all four extremities. Cranial nerves are grossly intact. Deep tendon reflexes are symmetrical and equal in all four extremities. Psychiatric: The patient has an appropriate affect and does not exhibit any anxiety or depression. Triage Information Reviewed: Yes Vital Signs On Initial Exam: Initial Vitals Temp Pulse Resp BP Pulse Ox 97.1 F 69 28 113/88 97 06/04/17 16:17 06/04/17 16:17 06/04/17 16:17 06/04/17 16:17 06/04/17 16:17 Vital Signs Reviewed: Yes Diagnostics - Vital Signs Vital Signs Temp Pulse Resp BP Pulse Ox 06/04/17 16:37 51 20 105/63 94 06/04/17 16:30 58 14 93 06/04/17 16:23 41 91 06/04/17 16:19 113/88 06/04/17 16:17 97.1 F 69 28 113/88 97 - Laboratory Lab Results: Lab Results 06/04/17 06/04/17 06/04/17 Range/Units 17:07 17:07 17:07 WBC 7.6 (3.5-10.8) 10^3/ul RBC 4.37 (4.0-5.4) 10^6/ul Hgb 13.5 L (14.0-18.0) g/dl Hct 41 L (42-52) % MCV 94 (80-94) fL MCH 31 (27-31) pg MCHC 33 (31-36) g/dl RDW 17 H (10.5-15) % Plt Count 125 L (150-450) 10^3/ul MPV 11 H (7.4-10.4) um3 Neut % (Auto) 80.5 (38-83) % Lymph % (Auto) 9.8 L (25-47) % [place] % (Auto) 7.0 (1-9) % Eos % (Auto) 2.0 (0-6) % Baso % (Auto) 0.7 (0-2) % Absolute Neuts (auto) 6.1 (1.5-7.7) 10^3/ul Absolute Lymphs (auto) 0.7 L (1.0-4.8) 10^3/ul Absolute Monos (auto) 0.5 (0-0.8) 10^3/ul Absolute Eos (auto) 0.2 (0-0.6) 10^3/ul Absolute Basos (auto) 0.1 (0-0.2) 10^3/ul Absolute Nucleated RBC 0 10^3/ul Nucleated RBC % 0.1 INR (Anticoag Therapy) (0.77-1.02) Sodium 137 (133-145) mmol/L Potassium 3.5 (3.5-5.0) mmol/L Chloride 94 L (101-111) mmol/L Carbon Dioxide 27 (22-32) mmol/L Anion Gap 16 H (2-11) mmol/L BUN 28 H (6-24) mg/dL Creatinine 1.55 H (0.67-1.17) mg/dL Est GFR ( Amer) 59.9 (>60) Est GFR (Non-Af Amer) 46.6 (>60) BUN/Creatinine Ratio 18.1 (8-20) Glucose 124 H (70-100) mg/dL Lactic Acid 2.4 H* (0.5-2.0) mmol/L Calcium 8.8 (8.6-10.3) mg/dL Total Bilirubin 2.20 H (0.2-1.0) mg/dL AST 18 (13-39) U/L ALT 13 (7-52) U/L Alkaline Phosphatase 104 (34-104) U/L Troponin I 0.07 H* (<0.04) ng/mL C-Reactive Protein 37.94 H (< 5.00) mg/L B-Natriuretic Peptide ( - 100) pg/mL Total Protein 6.4 (6.4-8.9) g/dL Albumin 4.0 (3.2-5.2) g/dL Globulin 2.4 (2-4) g/dL Albumin/Globulin Ratio 1.7 (1-3) TSH 3.81 (0.34-5.60) mcIU/mL Digoxin 2.2 H (0.8-2.0) ng/ml 06/04/17 06/04/17 Range/Units 17:07 17:07 WBC (3.5-10.8) 10^3/ul RBC (4.0-5.4) 10^6/ul Hgb (14.0-18.0) g/dl Hct (42-52) % MCV (80-94) fL MCH (27-31) pg MCHC (31-36) g/dl RDW (10.5-15) % Plt Count (150-450) 10^3/ul MPV (7.4-10.4) um3 Neut % (Auto) (38-83) % Lymph % (Auto) (25-47) % [place] % (Auto) (1-9) % Eos % (Auto) (0-6) % Baso % (Auto) (0-2) % Absolute Neuts (auto) (1.5-7.7) 10^3/ul Absolute Lymphs (auto) (1.0-4.8) 10^3/ul Absolute Monos (auto) (0-0.8) 10^3/ul Absolute Eos (auto) (0-0.6) 10^3/ul Absolute Basos (auto) (0-0.2) 10^3/ul Absolute Nucleated RBC 10^3/ul Nucleated RBC % INR (Anticoag Therapy) 7.58 H* (0.77-1.02) Sodium (133-145) mmol/L Potassium (3.5-5.0) mmol/L Chloride (101-111) mmol/L Carbon Dioxide (22-32) mmol/L Anion Gap (2-11) mmol/L BUN (6-24) mg/dL Creatinine (0.67-1.17) mg/dL Est GFR ( Amer) (>60) Est GFR (Non-Af Amer) (>60) BUN/Creatinine Ratio (8-20) Glucose (70-100) mg/dL Lactic Acid (0.5-2.0) mmol/L Calcium (8.6-10.3) mg/dL Total Bilirubin (0.2-1.0) mg/dL AST (13-39) U/L ALT (7-52) U/L Alkaline Phosphatase (34-104) U/L Troponin I (<0.04) ng/mL C-Reactive Protein (< 5.00) mg/L B-Natriuretic Peptide 654 H ( - 100) pg/mL Total Protein (6.4-8.9) g/dL Albumin (3.2-5.2) g/dL Globulin (2-4) g/dL Albumin/Globulin Ratio (1-3) TSH (0.34-5.60) mcIU/mL Digoxin (0.8-2.0) ng/ml Result Diagrams: 06/04/17 17:07 06/04/17 17:07 Lab Statement: Any lab studies that have been ordered have been reviewed, and results considered in the medical decision making process. - Radiology CXR Radiology Interpretation Completed By: Radiologist - Pulmonary vascular congestion and interstitial edema. Probable associated small pleural effusions. ED Physician has reviewed this report. - EKG 1647 Cardiac Rate: Bradycardia - at 43 BPM EKG Rhythm: Atrial Fibrillation - with bradycardic response; BVR EKG Comparison: No Significant Change - from 04/25/15 Disposition - Course Course Of Treatment: Mr. Cam presented with SOB and orthopnea and the concern that he was going into CHF again. He was, indeed, found to be in CHF and was diuresed and is being admitted to the hospitalist service. - Diagnoses Provider Diagnoses: CHF (congestive heart failure) - Physician Notifications Discussed Care Of Patient With: Christa Montoya - hospitalist Time Discussed With Above Provider: 18:23 Instructed by Provider To: MD Will See In ED Discharge - Discharge Plan Condition: Stable Disposition: ADMITTED TO [facility] documentation as recorded by the Damon couch Julia accurately reflects the service I personally performed and the decisions made by , Al Christianson MD.
--- NOTE | 2017-06-04 22:00 | HP ---
CC: Dr. Hernandez; Dr. Rangel * HISTORY AND PHYSICAL: DATE OF ADMISSION: 06/04/17 PRIMARY CARE PROVIDER: Dr. Rangel. BARREL DRILLER: Dr. Hernandez from [place]. CHIEF COMPLAINT: Abdominal pain and shortness of breath. HISTORY OF PRESENT ILLNESS: Jovanni Cam is a 56-year-old male with a history of ischemic and nonischemic cardiomyopathy with an EF of 20% as well as diabetes , chronic atrial fibrillation status post ICD placement who presented to the hospital complaining of abdominal pain. The patient usually has abdominal pain in the right upper quadrant epigastric area whenever he gets in CHF. The patient stated that his baseline weight is 194 pounds and he gained 6 pounds in the past 5 days when the abdominal pain started occurring. He denies any worsening of lower extremity edema. He has not had any changes into his medications. His heart rate is at 43 and digoxin level of 2.2. He is going to be admitted with a diagnosis of CHF. PAST MEDICAL HISTORY: 1. History of ischemic and nonischemic cardiomyopathy with EF of 20%. 2. Status post ICD placement in 2012. 3. History of tobacco abuse. 4. Hypertension. 5. Hyperlipidemia. 6. History of chronic atrial fibrillation, on Coumadin. 7. History of coronary artery disease with stents in the past. 8. History of iliofemoral thrombectomy in the past. 9. History of CVA x2. 10. History of lower extremity DVT. 11. History of epigastric pain and right upper quadrant abdominal pain due to gallbladder wall edema whenever the patient gets in CHF. 12. History of gout. 13. Chronic kidney disease stage 3 due to diabetes. CURRENT MEDICATIONS: Include: 1. Aldactone 25 mg every other day. 2. Omeprazole 20 mg daily. 3. Metoprolol tartrate 150 mg b.i.d. 4. Metformin 500 mg b.i.d. 5. Magnesium oxide 250 mg daily. 6. Glipizide 10 mg daily. 7. Lisinopril 7.5 mg daily. 8. Advair 200/50 one inhalation b.i.d. 9. Colace 100 mg b.i.d. 10. Digoxin 0.25 mg every other day alternating with 0.125 mg every other day. 11. Vitamin B12, 1000 mcg daily. 12. Lipitor 80 mg daily. 13. Aspirin 81 mg daily. 14. Allopurinol 100 mg b.i.d. 15. Albuterol inhaler on a p.r.n. basis. 16. Coumadin 2.5 mg on Sundays, Wednesdays, Tuesdays, , and Fridays; and 5 mg on Wednesdays and Saturdays. 17. Torsemide 80 mg b.i.d. 18. MiraLAX 17 g daily. ALLERGIES: No known drug allergies. FAMILY HISTORY: Father of pneumonia at the age of 83. Mother had a history of diabetes. SOCIAL HISTORY: The patient lives with his who is his surrogate. He is on disability. He has a history of smoking 1 pack per day and had been doing so for many years. He denies any alcohol or drug use. REVIEW OF SYSTEMS: Please see history of present illness. All the remaining 12 systems were reviewed with the patient and were otherwise negative. PHYSICAL EXAMINATION GENERAL: The patient is a very pleasant 56-year-old male with a weight of 200. The patient is in no acute distress. Alert, awake, and oriented x3. VITAL SIGNS: Blood pressure of 104/83, heart rate of 58 and regular, respiratory rate 18, oxygen saturation 93% on room air, and temperature 98.2. HEENT: Head atraumatic and normocephalic. Eyes; Pupils are equal, round, and reactive to light and accommodation. Oropharynx clear. Mucosa moist. NECK: Supple. No JVD, no bruits bilaterally. RESPIRATORY: Crackles at bilateral bases, otherwise clear. CARDIOVASCULAR: Irregularly irregular rhythm. No murmur. ABDOMEN: Distended, soft, tender in the epigastrium in the right upper quadrant with voluntary rebound, no guarding. Bowel sounds are present in all 4 quadrants. EXTREMITIES: There is no pedal edema. Pulses +2 bilaterally. There is no clubbing or cyanosis. NEUROLOGIC: Speech is clear. Cranial nerves II through XII are grossly intact. Motor strength is 5/5 bilaterally. LABORATORY DATA: White blood cell count of 7.6, hemoglobin of 13.5, hematocrit of 41, and platelets of 125,000. INR of 7.5. Sodium 137, potassium 3.5, chloride 94, carbon dioxide 27, BUN 28, creatinine 1.55. Liver function tests showed total bilirubin of 2.2, otherwise liver function tests were unremarkable. Troponin was 0.07. C-reactive protein was 37.9. Brain natriuretic peptide was 654 and lactic acid of 2.4 which appears to be the patient's baseline consistent with prior reports. Digoxin level was 2.2. The patient's portable chest x-ray was read by the radiologist as "pulmonary vascular congestion and interstitial edema. Probable associated small pleural effusions." The patient's EKG showed atrial fibrillation with slow ventricular rate at 43 beats per minute, left bundle branch block. Comparing with an EKG from 2016, the patient has definitely slower heart rate, but the bundle branch block is chronic. ASSESSMENT AND PLAN: 1. In regards to the patient's congestive heart failure. It is possible that the congestive heart failure exacerbated metabolism of the patient's digoxin. At this point, the patient is mildly dig toxic. The patient is hemodynamically stable and at this point I am going to hold the patient's rate controlling agents including digoxin as well as metoprolol. We will start metoprolol in the morning at one-third of the dose with hold parameters. 2. The patient is going to be placed on inpatient admission on telemetry monitored bed. Treat the patient's congestive heart failure which is likely acute and systolic with Lasix at 60 mg twice a day IV. I will continue the aldosterone as previously ordered as well as lisinopril. 3. The patient has chronic kidney disease stage 3, his creatinine is at the baseline. We will continue monitoring the patient's creatinine. 4. The patient's thrombocytopenia is chronic and is going to be monitored. 5. For the patient's diabetes, the patient is going to be continued on glipizide, insulin sliding scale, and metformin is going to be held. 6. In regards to abdominal pain, it is likely due to gallbladder edema that the patient has had in the past. We will continue with analgesia and diuretics and if it continues to be a problem, he may need an ultrasound of the right upper quadrant in the future. 7. In regards to the patient's digoxin toxicity. Once again, the patient has ICD in place. He is hemodynamically stable. There is no need to use digibindat this point. We will continue monitoring on telemetry monitored floor. 8. For DVT prophylaxis, the patient's INR is markedly subtherapeutic. The patient has no signs of bleeding. I will treat the patient with a small dose of vitamin K and continue with checking INRs daily. 9. The patient's code status is full and his surrogate is his . TIME SPENT: Approximately 70 minutes were spent on the admission of this patient, more than half that time was spent [id number] with the patient during the interview and physical exam. [id number]/CPS #: [id number] CHRIS
[2017-06-04] MEDS: oxyCODONE/Acetamin 5/325 MG* TAB PO PRN (22:53)
[2017-06-05] MEDS: Nicotine PATCH 21 MG/24 HR* PATCH TRANSDERM SCH ×2 (01:11→08:51)
[2017-06-05] MEDS: Morphine INJ* 2 MG/ML 1 ML CARPUJECT IV PRN (01:13)
[2017-06-05] MEDS: oxyCODONE/Acetamin 5/325 MG* TAB PO PRN (05:49)
[2017-06-05] MEDS: Ondansetron INJ* 2 MG/ML VIAL IV PRN ×2 (05:50→21:37)
[2017-06-05 06:04] LABS: Hematocrit 41 % (42-52); Hemoglobin 13.7 g/dl (14.0-18.0); Mean Corpuscular HGB Conc 33 g/dl (31-36); Mean Corpuscular Hemoglobin 31 pg (27-31); Mean Corpuscular Volume 93 fL (80-94); Mean Platelet Volume 11 um3 (7.4-10.4); Platelet Count 124 10^3/ul (150-450); Red Blood Count 4.41 10^6/ul (4.0-5.4); Red Cell Distribution Width 17 % (10.5-15); White Blood Count 6.9 10^3/ul (3.5-10.8)
[2017-06-05 06:16] LABS: ABS Basophils 0.1 10^3/ul (0-0.2); ABS Eosinophils 0.2 10^3/ul (0-0.6); ABS Lymphocytes 0.8 10^3/ul (1.0-4.8); ABS Monocytes 0.7 10^3/ul (0-0.8); ABS Neutrophils 5.2 10^3/ul (1.5-7.7); ABS Nucleated RBC 0 10^3/ul; Eosinophil % 2.3 % (0-6); Lymphocyte % 12.3 % (25-47); Nucleated Red Blood Cells % 0.1
[2017-06-05 06:21] LABS: EGFR Non-African American 43.1 (>60)
--- NOTE | 2017-06-05 06:22 | PN ---
Progress Note - Progress Note Date of Service: 06/05/17 Note: Paged for HR < 40 - lowered metoprolol to 25 mg BID from 50 mg.
[2017-06-05] MEDS ORDERED: Perflutren Lipid Microsphere* 3 ML VIAL ONE (07:40)
[2017-06-05] MEDS: Mometasone/Formoter 100/5 MDI INH SCH ×2 (08:19→21:07)
[2017-06-05] MEDS: Atorvastatin* 80 MG TAB PO SCH (08:47)
[2017-06-05] MEDS: Allopurinol TAB* 100 MG PO SCH ×2 (08:47→21:38)
[2017-06-05] MEDS: Lisinopril TAB* 5 MG PO SCH (08:47)
[2017-06-05] MEDS: Metoprolol Tartrate TAB* 50 mg PO SCH ×2 (08:49→21:37)
[2017-06-05] MEDS: Aspirin EC Low Dose* 81 MG TAB.EC PO SCH (08:49)
[2017-06-05] MEDS: glipiZIDE TAB.XL* 5 MG PO SCH (08:49)
[2017-06-05 08:50] LABS: INR 4.22 (0.77-1.02)
[2017-06-05] MEDS: Furosemide IV* 10 MG/ML 10 ML VIAL (100 MG) IV SCH ×2 (08:50→16:47)
[2017-06-05] MEDS: Docusate CAP* 100 MG PO SCH ×2 (08:50→21:37)
[2017-06-05] MEDS: Cyanocobalamin TAB* 500 MCG PO SCH (08:50)
[2017-06-05] MEDS: Omeprazole CAP* 20 MG PO SCH (08:50)
[2017-06-05] MEDS: Insulin LISPRO* 1 UNITS UNIT SUBCUT SCH ×4 (08:50→20:47)
[2017-06-05] MEDS ORDERED: Metoprolol Tartrate TAB* 50 mg PO SCH (09:00)
[2017-06-05] MEDS ORDERED: MAGNESIUM OXIDE 250 MG PO SCH (09:00)
[2017-06-05] MEDS: Polyethylene Glycol 3350* 17 GM PACKET PO SCH (10:01)
--- NOTE | 2017-06-05 10:08 | ECHO ---
Patient: STEVIE MEYER [facility] Rec#: [id number] : 1960 Date: 06/05/2017 Age: 56y Height: 180.34 cm / 71.0 in Weight: 90.72 kg / 199.9 lbs Sex: M BSA: 2.11 Room#: [facility] Admit Date#: 06/04/2017 Type: Inpatient Referring: Christa Montoya MD Reading: Luis Goodwin MD Application Consultant: Samira Lugo,RDCS,RDMS CC: Jamari Rangel MD Transthoracic Echocardiogram Indication: CHF BP: 107/67 HR: 55 Rhythm: A-Fib Findings History: CAD, DE, PCI, AFIB, cardiomyopathy, ICD, DM,. COPD, CVA, HTN, HLD Technical Comments: The study is technically limited due to the patient's history of COPD. Left Ventricle: The left ventricular chamber size is moderately dilated. Mild concentric left ventricular hypertrophy is observed. There are multiple regional wall motion abnormalities. There is severely decreased left ventricular systolic function. The estimated ejection fraction is less than 20%. The assessment of diastolic function is non-diagnostic. Left Atrium: The left atrium is severely dilated. Right Ventricle: The right ventricle is moderately dilated. The right ventricular global systolic function is mildly reduced. A pacemaker wire is visualized in the right ventricle. Right Atrium: The right atrial cavity size is severely dilated. Aortic Valve: The aortic valve leaflets are moderately thickened. Systolic excursion of the aortic valve cusps is reduced. There is no evidence of aortic regurgitation. There is mild aortic stenosis. The mean gradient of the aortic valve is 10.5 mmHg. The aortic valve area, by peak velocities, is calculated at 1.6 cm2. Mitral Valve: The mitral valve leaflets are mildly thickened. There is moderate to severe mitral regurgitation. There is no evidence of mitral stenosis. Tricuspid Valve: The tricuspid valve leaflets are normal. There is severe tricuspid regurgitation. The right ventricular systolic pressure is estimated at 67 mmHg. There is evidence of moderate to severe pulmonary hypertension. Pulmonic Valve: There is no evidence of pulmonic valve thickening. There is trace to mild pulmonic regurgitation. Pericardium: There is no significant pericardial effusion. Aorta: The aortic root appears normal. The aortic arch is not well visualized. Pulmonary Artery: The main pulmonary artery is not well visualized. Venous: The inferior vena cava is dilated. There is less than 50% respiratory change in the inferior vena cava dimension. Contrast: Definity was used to optimize study. A total of 3 ml was used Conclusions Mild concentric left ventricular hypertrophy is observed. There are multiple regional wall motion abnormalities. There is severely decreased left ventricular systolic function. The estimated ejection fraction is less than 20%. The right ventricular global systolic function is mildly reduced. Systolic excursion of the aortic valve cusps is reduced. There is mild aortic stenosis. The mean gradient of the aortic valve is 10.5 mmHg. There is moderate to severe mitral regurgitation. There is severe tricuspid regurgitation. The right ventricular systolic pressure is estimated at 67 mmHg. There is no significant pericardial effusion. Compard to study of 10/31/12, the LV function is the same. The degree of MR, TR and Pulm HTN are worse Measurements Name Value Normal Range RVIDd (AP) 2D 4.29 cm (0.9 - 2.6) RVDdMajor (2D) 2.8 cm (2.2 - 4.4) RAd ISD 4CH 6.2 cm (3.4 - 4.9) RA (A4C)W 5.5 cm (2.9 - 4.6) IVSd (2D) 1.06 cm (0.6 - 1) LVPWd (2D) 1.34 cm (0.6 - 1) LVIDd (2D) 6.62 cm (3.6 - 5.4) LVIDs (2D) 6.1 cm - LV FS (2D) 7.89 % (25 - 45) EF Teichholz (2D) 17.04 % - Aortic Annulus 2.3 cm (1.4 - 2.6) Ao root diameter (2D) 2.31 cm (2.1 - 3.5) Ascending Ao 2.45 cm (2.1 - 3.4) LA dimension (AP) 2D 5.9 cm (2.3 - 3.8) LAd ISD 4CH 6.3 cm (2.9 - 5.3) LA ISD 4CH W 4.8 cm (2.5 - 4.5) Name Value Normal Range LA ESV SP 4CH (A/L) 84.57 ml - LA ESV SP 2CH (A/L) 102.99 ml - LA ESV BP (A/L) 96.26 ml - LA ESV BP (A/L) index 46 ml/m2 - LA ESV SP 4CH (MOD) 80.13 ml - LA ESV SP 2CH (MOD) 95.65 ml - Name Value Normal Range MV E-wave Vmax 1.14 m/sec - MV deceleration time 161.75 msec - MV A-wave Vmax 0 m/sec - MV E:A ratio 368.61 ratio - LV lateral e' Vmax 0.06 m/sec - LV E:e' lateral ratio 19 ratio - Name Value Normal Range AV Vmax 2.2 m/sec - AV VTI 38 cm - AV peak gradient 19 mmHg - AV mean gradient 10.5 mmHg - LVOT diameter 2.23 cm - LVOT Vmax 0.92 m/sec - LVOT VTI 18.88 cm - LVOT peak gradient 3.4 mmHg - LVOT mean gradient 1.92 mmHg - SV LVOT 73.79 ml - GREG (continuity Vmax) 1.6 cm2 - GREG (continuity VTI) 1.9 cm2 - [place] Vmax 0.8 m/sec - Name Value Normal Range MV Vmax 1.35 m/sec - MV VTI 35.76 cm - MV peak gradient 7.26 mmHg - MV mean gradient 1.69 mmHg - MV PHT 62.14 msec - MVA (PHT) 3.54 cm2 - MVA (continuity VTI) 2.06 cm2 - Name Value Normal Range TR Vmax 3.18 m/sec - TR peak gradient 40.62 mmHg - RAP 15 mmHg - RVSP 67 mmHg - IVC diameter 3.24 cm - Name Value Normal Range PV Vmax 0.94 m/sec - PV peak gradient 3.63 mmHg -
[2017-06-05] MEDS ORDERED: Potassium Chlor TAB* 20 MEQ TAB.ER PO ONE (14:50)
--- NOTE | 2017-06-05 16:21 | PN ---
Subjective Date of Service: 06/05/17 Interval History: Abd pain almost resolved. feels much better still noted in HR<50 on telem Objective Active Medications: Acetaminophen (Tylenol Tab*) 650 mg PO Q4H PRN PRN Reason: FEVER/PAIN Albuterol (Ventolin 2.5 Mg/3 Ml Neb.Madeline*) 2.5 mg INH [id number] AWAKE PRN PRN Reason: sob/wheezing Albuterol (Ventolin Hfa Inhaler*) 2 puff INH Q4H PRN PRN Reason: SOB/WHEEZING Allopurinol (Zyloprim Tab*) 100 mg PO BID [facility] Last Admin: 06/05/17 08:47 Dose: 100 mg Aspirin (Aspirin Ec Low Dose*) 81 mg PO QAM [facility] Last Admin: 06/05/17 08:49 Dose: 81 mg Atorvastatin Calcium (Lipitor*) 80 mg PO DAILY [facility] Last Admin: 06/05/17 08:47 Dose: 80 mg Cyanocobalamin (Vitamin B12 Tab*) 1,000 mcg PO DAILY [facility] Last Admin: 06/05/17 08:50 Dose: 1,000 mcg Dextrose (D50w Syringe 50 Ml*) 12.5 gm IV PUSH .FOR FS < 60 - SS PRN PRN Reason: FS < 60 Docusate Sodium (Colace Cap*) 100 mg PO BID [facility] Last Admin: 06/05/17 08:50 Dose: 100 mg Furosemide (Lasix Iv*) 60 mg IV 0800,1700 [facility] Last Admin: 06/05/17 08:50 Dose: 60 mg Glipizide (Glucotrol Xl*) 10 mg PO QAM [facility] Last Admin: 06/05/17 08:49 Dose: 10 mg Insulin Human Lispro (Humalog*) 0 units SUBCUT ACHS [facility] PRN Reason: Protocol Last Admin: 06/05/17 12:26 Dose: 2 unit Lisinopril (Prinivil Tab*) 7.5 mg PO DAILY [facility] Last Admin: 06/05/17 08:47 Dose: 7.5 mg Magnesium Oxide (Magox 400 Tab*) 400 mg PO DAILY [facility] Metoprolol Tartrate (Lopressor Tab*) 25 mg PO BID [facility] Last Admin: 06/05/17 08:49 Dose: 25 mg Mometasone Furoate/Formoterol Fumar (Dulera 100/5 Mdi*) 2 puff INH BID [facility] Last Admin: 06/05/17 08:19 Dose: 2 puff Morphine Sulfate (Morphine Inj (Syringe)*) 2 mg IV Q4H PRN PRN Reason: PAIN Last Admin: 06/05/17 01:13 Dose: 2 mg Nicotine (Nicotine Patch 21 Mg/24 Hr*) 1 patch TRANSDERM DAILY [facility] Last Admin: 06/05/17 08:51 Dose: 1 patch Omeprazole (Prilosec Cap*) 20 mg PO DAILY [facility] Last Admin: 06/05/17 08:50 Dose: 20 mg Ondansetron HCl (Zofran Inj*) 6 mg IV Q6H PRN PRN Reason: NAUSEA Last Admin: 06/05/17 05:50 Dose: 6 mg Oxycodone/Acetaminophen (Percocet 5/325 Tab*) 1 tab PO Q4H PRN PRN Reason: PAIN Last Admin: 06/05/17 05:49 Dose: 1 tab Pharmacy Profile Note (Nicotine Patch Removal Note*) 1 note PATCH OFF 2099 [facility] Polyethylene Glycol/Electrolytes (Miralax*) 17 gm PO DAILY [facility] Last Admin: 06/05/17 10:01 Dose: Not Given Spironolactone (Aldactone Tab*) 25 mg PO EVERY OTHER DAY [facility] Vital Signs - 8 hr 06/05/17 06/05/17 06/05/17 08:24 08:32 11:30 Temperature 97.8 F 97.3 F Pulse Rate 67 57 Respiratory 16 16 20 Rate Blood Pressure 107/74 102/67 (mmHg) O2 Sat by Pulse 91 91 Oximetry 06/05/17 15:27 Temperature 97.4 F Pulse Rate 55 Respiratory 16 Rate Blood Pressure 105/79 (mmHg) O2 Sat by Pulse 95 Oximetry Oxygen Devices in Use Now: None Appearance: 56 yo M in nAD,AAOx3 Eyes: No Scleral Icterus, PERRLA Ears/Nose/Mouth/Throat: NL Teeth, Lips, Gums, Mucous Membranes Moist Neck: NL Appearance and Movements; NL JVP, Trachea Midline Respiratory: Symmetrical Chest Expansion and Respiratory Effort Cardiovascular: NL Sounds; No Murmurs; No JVD, RRR Abdominal: No Hepatosplenomegaly, - - mild epigastric tenderness and distention , BS+ Extremities: No Edema, No Clubbing, Cyanosis Skin: No Rash or Ulcers, No Nodules or Sclerosis Neurological: Alert and Oriented x 3, NL Muscle Strength and Tone Result Diagrams: 06/05/17 05:36 06/05/17 05:37 Additional Lab and Data: Lab Results 06/04/17 06/04/17 06/04/17 Range/Units 17:07 17:07 17:07 WBC 7.6 (3.5-10.8) 10^3/ul RBC 4.37 (4.0-5.4) 10^6/ul Hgb 13.5 L (14.0-18.0) g/dl Hct 41 L (42-52) % MCV 94 (80-94) fL MCH 31 (27-31) pg MCHC 33 (31-36) g/dl RDW 17 H (10.5-15) % Plt Count 125 L (150-450) 10^3/ul MPV 11 H (7.4-10.4) um3 Neut % (Auto) 80.5 (38-83) % Lymph % (Auto) 9.8 L (25-47) % Rogers % (Auto) 7.0 (1-9) % Eos % (Auto) 2.0 (0-6) % Baso % (Auto) 0.7 (0-2) % Absolute Neuts (auto) 6.1 (1.5-7.7) 10^3/ul Absolute Lymphs (auto) 0.7 L (1.0-4.8) 10^3/ul Absolute Monos (auto) 0.5 (0-0.8) 10^3/ul Absolute Eos (auto) 0.2 (0-0.6) 10^3/ul Absolute Basos (auto) 0.1 (0-0.2) 10^3/ul Absolute Nucleated RBC 0 10^3/ul Nucleated RBC % 0.1 INR (Anticoag Therapy) (0.77-1.02) Sodium 137 (133-145) mmol/L Potassium 3.5 (3.5-5.0) mmol/L Chloride 94 L (101-111) mmol/L Carbon Dioxide 27 (22-32) mmol/L Anion Gap 16 H (2-11) mmol/L BUN 28 H (6-24) mg/dL Creatinine 1.55 H (0.67-1.17) mg/dL Est GFR ( Amer) 59.9 (>60) Est GFR (Non-Af Amer) 46.6 (>60) BUN/Creatinine Ratio 18.1 (8-20) Glucose 124 H (70-100) mg/dL Lactic Acid 2.4 H* (0.5-2.0) mmol/L Calcium 8.8 (8.6-10.3) mg/dL Total Bilirubin 2.20 H (0.2-1.0) mg/dL AST 18 (13-39) U/L ALT 13 (7-52) U/L Alkaline Phosphatase 104 (34-104) U/L Troponin I 0.07 H* (<0.04) ng/mL C-Reactive Protein 37.94 H (< 5.00) mg/L B-Natriuretic Peptide ( - 100) pg/mL Total Protein 6.4 (6.4-8.9) g/dL Albumin 4.0 (3.2-5.2) g/dL Globulin 2.4 (2-4) g/dL Albumin/Globulin Ratio 1.7 (1-3) TSH 3.81 (0.34-5.60) mcIU/mL Digoxin 2.2 H (0.8-2.0) ng/ml 06/04/17 06/04/17 Range/Units 17:07 17:07 WBC (3.5-10.8) 10^3/ul RBC (4.0-5.4) 10^6/ul Hgb (14.0-18.0) g/dl Hct (42-52) % MCV (80-94) fL MCH (27-31) pg MCHC (31-36) g/dl RDW (10.5-15) % Plt Count (150-450) 10^3/ul MPV (7.4-10.4) um3 Neut % (Auto) (38-83) % Lymph % (Auto) (25-47) % Rogers % (Auto) (1-9) % Eos % (Auto) (0-6) % Baso % (Auto) (0-2) % Absolute Neuts (auto) (1.5-7.7) 10^3/ul Absolute Lymphs (auto) (1.0-4.8) 10^3/ul Absolute Monos (auto) (0-0.8) 10^3/ul Absolute Eos (auto) (0-0.6) 10^3/ul Absolute Basos (auto) (0-0.2) 10^3/ul Absolute Nucleated RBC 10^3/ul Nucleated RBC % INR (Anticoag Therapy) 7.58 H* (0.77-1.02) Sodium (133-145) mmol/L Potassium (3.5-5.0) mmol/L Chloride (101-111) mmol/L Carbon Dioxide (22-32) mmol/L Anion Gap (2-11) mmol/L BUN (6-24) mg/dL Creatinine (0.67-1.17) mg/dL Est GFR ( Amer) (>60) Est GFR (Non-Af Amer) (>60) BUN/Creatinine Ratio (8-20) Glucose (70-100) mg/dL Lactic Acid (0.5-2.0) mmol/L Calcium (8.6-10.3) mg/dL Total Bilirubin (0.2-1.0) mg/dL AST (13-39) U/L ALT (7-52) U/L Alkaline Phosphatase (34-104) U/L Troponin I (<0.04) ng/mL C-Reactive Protein (< 5.00) mg/L B-Natriuretic Peptide 654 H ( - 100) pg/mL Total Protein (6.4-8.9) g/dL Albumin (3.2-5.2) g/dL Globulin (2-4) g/dL Albumin/Globulin Ratio (1-3) TSH (0.34-5.60) mcIU/mL Digoxin (0.8-2.0) ng/ml Assess/Plan/Problems-Billing Assessment: Mr. Cam is a 56 yo male with a PMH of ischemic and nonischemic cardiomyopathy with EF < 20%, CAD, HTN, Afib who was admitted with acute on chronic systolic CHF. - Patient Problems (1) Atrial fibrillation Comment: Bradycardic due to digoxin toxicity. ICD pacing intermittently. Continue metoprolol at a lower dose (2) Acute on chronic combined systolic and diastolic CHF (congestive heart failure) Comment: After 2 doses of 60 mg IV lasix pt's weight decreased by 3 lbs initially Pt 's sumptoms of CHF usually are abd pain and distention cont Lasix IV Echo shows EF<20%(known) and mod MR (3) DM type 2 (diabetes mellitus, type 2) Comment: Hold metformin, creatinine > 1.5. cont glipizide. (4) CKD stage 3 due to type 2 diabetes mellitus Comment: creatinine increasing but still at baseline (5) DVT prophylaxis Comment: Coumadin held, INR supratherapeutic. Status and Disposition: inpatient
[2017-06-05] MEDS ORDERED: Nicotine Patch Removal NOTE FOLLOW UP SCH (21:00)
[2017-06-05] MEDS ORDERED: Nicotine Patch Removal NOTE PATCH OFF SCH (21:00)
[2017-06-06 05:45] LABS: INR 2.33 (0.77-1.02)
[2017-06-06 05:55] LABS: EGFR Non-African American 41.3 (>60)
[2017-06-06] MEDS: Insulin LISPRO* 1 UNITS UNIT SUBCUT SCH ×2 (08:27→11:52)
[2017-06-06] MEDS: Aspirin EC Low Dose* 81 MG TAB.EC PO SCH (08:28)
[2017-06-06] MEDS: Docusate CAP* 100 MG PO SCH (08:28)
[2017-06-06] MEDS: Omeprazole CAP* 20 MG PO SCH (08:28)
[2017-06-06] MEDS: glipiZIDE TAB.XL* 5 MG PO SCH (08:29)
[2017-06-06] MEDS: Atorvastatin* 80 MG TAB PO SCH (08:29)
[2017-06-06] MEDS: Lisinopril TAB* 5 MG PO SCH (08:29)
[2017-06-06] MEDS: Cyanocobalamin TAB* 500 MCG PO SCH (08:29)
[2017-06-06] MEDS: Furosemide IV* 10 MG/ML 10 ML VIAL (100 MG) IV SCH (08:30)
[2017-06-06] MEDS: Nicotine PATCH 21 MG/24 HR* PATCH TRANSDERM SCH (08:30)
[2017-06-06] MEDS: Allopurinol TAB* 100 MG PO SCH (08:30)
[2017-06-06] MEDS: Metoprolol Tartrate TAB* 50 mg PO SCH (08:31)
[2017-06-06] MEDS: Polyethylene Glycol 3350* 17 GM PACKET PO SCH (08:35)
[2017-06-06] MEDS: Mometasone/Formoter 100/5 MDI INH SCH (08:39)
[2017-06-06] MEDS ORDERED: Spironolactone TAB* 25 MG PO SCH (09:00)
[2017-06-06] MEDS ORDERED: Magnesium Oxide TAB* 400 MG PO SCH (09:00)
[2017-06-06 11:36] VITALS: BP 95/73
[2017-06-06] MEDS ORDERED: Torsemide TAB* 20 MG PO SCH (21:00)
--- NOTE | 2017-06-07 11:57 | DS ---
CC: Dr. Rangel; Dr. Hernandez from Cardiology * DISCHARGE SUMMARY: DATE OF ADMISSION: 06/04/17 DATE OF DISCHARGE: 06/06/17 PRIMARY CARE PROVIDER: Dr. Rangel. POWER WASHER: Dr. Hernandez from [place]. DISCHARGE DIAGNOSES: 1. Acute on chronic systolic congestive heart failure. 2. Digitalis toxicity. SECONDARY DIAGNOSES: 1. History of ischemic and nonischemic cardiomyopathy with ejection fraction of 20%. 2. Status post ICD placement in 2012. 3. History of tobacco abuse. 4. Hypertension. 5. Hyperlipidemia. 6. History of chronic atrial fibrillation, on Coumadin. 7. History of carotid disease with stents in the past. 8. History of iliofemoral thrombectomy in the past. 9. History of cerebrovascular accident x2. 10. History of lower extremity DVT. 11. History of epigastric pain and right upper quadrant abdominal pain due to gallbladder wall edema whenever the patient gets in congestive heart failure. 12. History of gout. 13. Chronic kidney disease stage 3 due to diabetes. MEDICATIONS AT DISCHARGE: Were changed and included: 1. Digoxin was discontinued. 2. Metformin was discontinued. 3. Metoprolol tartrate dose was lowered. The medications are as follows: 1. Albuterol inhalation every 4 hours p.r.n. 2. Allopurinol 100 mg b.i.d. 3. Aspirin 81 mg daily. 4. Lipitor 80 mg daily. 5. Vitamin B12 1000 mcg daily. 6. Colace 100 mg b.i.d. 7. Dulera 1 puff b.i.d. 8. Glipizide XL 10 mg daily. 9. Lisinopril 7.5 mg daily. 10. Mag-Ox 250 mg daily. 11. Metoprolol tartrate 50 mg b.i.d. 12. Omeprazole 20 mg daily. 13. MiraLAX 17 g daily. 14. Aldactone 25 mg every other day. 15. Torsemide 80 mg b.i.d. 16. Coumadin 2.5 mg a day. The patient's next INR and basic metabolic panel to be checked in 3 days. The patient is recommended to follow up with Dr. Rangel in approximately 4 to [address] Hernandez within the next 7 days. LABORATORY DATA AND STUDIES PERFORMED DURING HOSPITAL STAY: Included: On 06/05, white blood cell count of 6.9, hemoglobin 13.7, hematocrit 41, and platelets of 124. The patient's INR on the day of discharge was 2.33. Sodium was 135, potassium 3.9, chloride 100, carbon dioxide 29, BUN 34, creatinine 1.72. Liver function tests were obtained at admission and were unremarkable. Total bilirubin of 2.2. The patient's troponin was 0.07 throughout his hospital stay. The patient's transthoracic echocardiogram obtained on 06/05/17 showed EF of less than 20% with multiple regional wall motion abnormalities and mild concentric LVH. There is mild aortic stenosis and mean gradient of the aortic wall was 10.5 mmHg. There is moderate to severe mitral regurgitation and severe tricuspid regurgitation. There is no significant pericardial effusion. Compared to study from 2013, the LV function is stable. The degree of mitral regurgitation, tricuspid regurgitation, and pulmonary hypertension worse. The patient's digoxin level was 2.2 at admission. HOSPITALIZATION COURSE: Jovanni Cam is a 56-year-old male with a history of ischemic and nonischemic cardiomyopathy with EF below 20. The patient is status post ICD placement. The patient usually has symptoms of CHF when he gain his weight and he presents with right upper quadrant abdominal pain, which happened on 06/04/17. The patient complained at that point of approximately 6 pounds of weight gain. The patient stated that in the past several days, he was eating chips and drinking more alcohol than usual. The patient also was supratherapeutic on his Coumadin with an INR of above 7. 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 He never became hemodynamically unstable though. He was diuresed with intravenous Lasix and he lost 2 to 3 pounds and by the time of discharge, he was 198 pounds. His abdominal pain resolved within 24 hours of diuresis. His metoprolol tartrate dose was lowered from 150 mg to 50 mg b.i.d. by the time of discharge. His digoxin was discontinued. Due to the patient's creatinine at the time of discharge of 1.7, his metformin was discontinued also. His INR at 7 was treated with 1 dose of p.o. vitamin K and by the time of discharge, his INR normalized to the level of 2.3 and his Coumadin was restarted. The patient is aware that he was taken off digoxin and placed on significantly lowered dose of metoprolol. I suspect that the patient will need more metoprolol in the near future and his digoxin may need to be restarted. At this point, the patient is advised to check his weight on a daily basis and to notify his primary care provider if his weight increases over 3 pounds. He is also to have his lab work done in 3 days and follow up with Dr. Rangel within 4 to 7 days. PHYSICAL EXAM AT THE TIME OF DISCHARGE: Blood pressure 95/72, heart rate of 78 and irregularly irregular, respiratory rate 20, oxygen saturation 95% on room air, and temperature 97.3. General: The patient is a very pleasant 56-year- old male with a BMI of 27. The patient is in no acute distress. Alert, awake, and oriented x3. HEENT: Head: Atraumatic, normocephalic. Eyes: Pupils are equal, reactive to light and accommodation. Oropharynx is clear. Mucosa moist. Neck: Supple. No JVD. No bruits bilaterally. Cardiovascular: Irregularly irregular rhythm. No murmur. Respiratory: Clear to auscultation bilaterally. Abdomen: Soft, nontender. Bowel sounds are present in all 4 quadrants. Extremities: There is no edema. Pulses are +2 bilaterally. No clubbing or cyanosis. Neuro Evaluation: Speech clear. Cranial nerves II through XII grossly intact. Motor strength is 5/5 bilaterally. Please note that this is a short summary of the patient's hospitalization. Please refer to further medical record for details. TIME SPENT: Approximately 40 minutes was spent on the patient's discharge. [id number]/[facility] #: [id number] [facility]
== END 2017-06-06 14:50 | disposition home or self-care (01) | DRG 291 ==
LOC: ED 16:14 → MEDTELE 18:28
PROVIDERS: ADMIT Internal Medicine; ATTEND Internal Medicine
DX: I13.0 Hypertensive heart and chronic kidney disease with heart failure and stage 1 through stage 4 chronic kidney disease, or unspecified chronic kidney disease (principal); I50.43 Acute on chronic combined systolic (congestive) and diastolic (congestive) heart failure; D69.6 Thrombocytopenia, unspecified; E11.22 Type 2 diabetes mellitus with diabetic chronic kidney disease; I27.20 Pulmonary hypertension, unspecified; N18.3 Chronic kidney disease, stage 3 (moderate); I08.3 Combined rheumatic disorders of mitral, aortic and tricuspid valves; I25.10 Atherosclerotic heart disease of native coronary artery without angina pectoris; G47.30 Sleep apnea, unspecified; J44.9 Chronic obstructive pulmonary disease, unspecified; K44.9 Diaphragmatic hernia without obstruction or gangrene; F17.210 Nicotine dependence, cigarettes, uncomplicated; I25.5 Ischemic cardiomyopathy; E78.5 Hyperlipidemia, unspecified; I44.7 Left bundle-branch block, unspecified; T46.0X5A Adverse effect of cardiac-stimulant glycosides and drugs of similar action, initial encounter; R79.1 Abnormal coagulation profile; I48.2 Chronic atrial fibrillation; R00.1 Bradycardia, unspecified; R60.9 Edema, unspecified; Z79.01 Long term (current) use of anticoagulants; Z99.81 Dependence on supplemental oxygen; Z95.810 Presence of automatic (implantable) cardiac defibrillator; Z82.49 Family history of ischemic heart disease and other diseases of the circulatory system; Z86.73 Personal history of transient ischemic attack (TIA), and cerebral infarction without residual deficits; Z83.3 Family history of diabetes mellitus; Z95.5 Presence of coronary angioplasty implant and graft; Z86.718 Personal history of other venous thrombosis and embolism; Y92.009 Unspecified place in unspecified non-institutional (private) residence as the place of occurrence of the external cause; Z79.82 Long term (current) use of aspirin; Z79.84 Long term (current) use of oral hypoglycemic drugs
CPT/HCPCS: 36415; 71045; 80048; 80053; 80162; 83605; 83880; 84443; 84484; 85025; 85610; 86140; 87040; 93005; 93306; 94640; 99285; 99406; A9270-GY; C8929; J1940; J2270; J2405

== ENCOUNTER 2017-06-15 06:58 | Observation (INO) | payer MEDICARE ==
[2017-06-15 08:10] LABS: INR 3.69 (0.77-1.02)
[2017-06-15] MEDS ORDERED: Furosemide IV* 10 MG/ML VIAL (40 MG) IV ONE (08:10)
[2017-06-15 08:15] LABS: EGFR Non-African American 49.9 (>60)
[2017-06-15 08:17] LABS: Hematocrit 39 % (42-52); Mean Corpuscular HGB Conc 33 g/dl (31-36); Mean Corpuscular Hemoglobin 31 pg (27-31); Mean Corpuscular Volume 94 fL (80-94); Mean Platelet Volume 11 um3 (7.4-10.4); Platelet Count 163 10^3/ul (150-450); Red Blood Count 4.17 10^6/ul (4.0-5.4); Red Cell Distribution Width 18 % (10.5-15); White Blood Count 10.3 10^3/ul (3.5-10.8)
--- NOTE | 2017-06-15 08:17 | RAD ---
INDICATION: Shortness of breath COMPARISON: Most recent comparison chest x-rays dated June 04, 2017 TECHNIQUE: Single AP portable view of the chest was obtained. FINDINGS: Image quality is compromised due to the relative inferiority of a portable chest x-ray. Overlying the left upper chest there is a cardiac pacemaker with one lead overlying the heart. The heart and mediastinum exhibit normal size and contour. Similar to the prior chest x-ray there is the appearance of mild vascular engorgement and congestion. Otherwise the lungs are grossly clear. There is no evidence of a large pleural effusion. Visualized bones are normal for the patient's age. IMPRESSION: Chest x-ray appearance is most consistent with mild pulmonary vascular congestion similar to the most recent June 04, 2017 chest x-ray.
[2017-06-15 08:46] LABS: ABS Basophils 0.1 10^3/ul (0-0.2); ABS Eosinophils 0.1 10^3/ul (0-0.6); ABS Lymphocytes 0.9 10^3/ul (1.0-4.8); ABS Monocytes 0.7 10^3/ul (0-0.8); ABS Neutrophils 8.5 10^3/ul (1.5-7.7); ABS Nucleated RBC 0 10^3/ul; Eosinophil % 1.3 % (0-6); Lymphocyte % 8.4 % (25-47); Nucleated Red Blood Cells % 0.1
[2017-06-15] MEDS ORDERED: Potassium Chlor TAB* 20 MEQ TAB.ER PO ONE (08:52)
[2017-06-15] MEDS ORDERED: Metolazone TAB* 5 MG PO ONE (08:56)
--- NOTE | 2017-06-15 09:21 | RAD ---
Indication: Abdominal pain. CT of the abdomen and pelvis was performed without oral or IV contrast administration. Coronal and sagittal reconstructed images were obtained. The lung bases demonstrates a small right pleural effusion. Tiny nodules in the lung bases likely represents an old granuloma. There is a lung mass however in the left lower lobe measuring 2 cm however this has been present since May 25, 2007 and is not significantly changed. Heart is of enlarged. No pericardial effusion is noted. The liver is enlarged. No focal lesions or intrahepatic ductal dilatation is noted. The gallbladder demonstrates no calcified gallstones. The spleen is normal in size. Pancreas demonstrates no mass or pancreatic duct dilatation. Common duct is not dilated. Bilateral adrenal lesions are noted. Bilateral low density lesions are noted in the legs. No hydronephrosis is noted. Atherosclerotic aorta is noted. Inferior vena cava are unremarkable. No dilated loops of bowel are noted. The urinary bladder is otherwise unremarkable. The prostate and seminal vesicles are unremarkable. No dilated loops of bowel are noted. The kidneys demonstrate no hydronephrosis in either kidney. Cortical cysts are noted in both kidneys. Atherosclerotic aorta is noted. No dilated loops of bowel are noted. No dilated loops of bowel are noted. The colon is filled with stool. Prostate and seminal vesicles are unremarkable. The urinary bladder is unremarkable. The colon is filled with stool. No dilated loops of bowel are noted. The urinary bladder is unremarkable. No hernias are noted. IMPRESSION: Right pleural effusion. Left lower lobe lung mass is unchanged from May 25, 2007. Bilateral adrenal masses are also unchanged from May 25, 2007. No evidence of bowel obstruction or abnormal masses are identified. No obstructive uropathy is noted.
--- NOTE | 2017-06-15 09:34 | ED ---
Damon Kearns Julia, scribed for Chaz Gibson MD on 06/15/17 at 0744 . Shortness of Breath - HPI Summary HPI Summary: This patient is a 56 year old M presenting to [facility] with a chief complaint of SOB worsening today. Patient reports bilateral lower extremity edema worst on R, abdominal swelling and pain, and cough. Patient denies fever, chills, and chest pain or tightness. Patient has a history of CHF and was recently treated Dr. Hernandez at [facility] in [place]. - History of Current Complaint Chief Complaint: EDRespiratoryDistress Time Seen by Provider: 06/15/17 07:08 Hx Obtained From: Patient Onset/Duration: Still Present Timing: Constant Dyspnea At: Rest Associated Signs & Symptoms: Cough (Nonproductive), Edema Related History: Similar Episode - CHF, recent hospitalization - Allergy/Home Medications Allergies/Adverse Reactions: Allergies Allergy/AdvReac Type Severity Reaction Status Date / Time No Known Allergies Allergy Verified 01/19/17 04:51 Home Medications: Home Medications Digoxin TAB* [Lanoxin TAB*] 0.125 mg PO DAILY 06/15/17 [History Confirmed ] Fluticasone-Salmeterol 250-50* [Advair Diskus 250-50*] 1 puff INH BID 06/15/17 [ History Confirmed 06/15/17] PMH/Surg Hx/FS Hx/Imm Hx Endocrine/Hematology History: Reports: Hx Anticoagulant Therapy - coumadin, Hx Diabetes Denies: Hx Blood Disorders, Hx Blood Transfusions, Hx Bone Marrow Disease, Hx Systemic Lupus Erythematosus, Hx Sickle Cell Disease, Hx Thyroid Disease, Hx Anemia, Hx Unexplained Bleeding, Other Endocrine/Hematological Disorders Cardiovascular History: Reports: Hx Angioplasty, Hx Auto Implanted Cardiovert Defib - defibrillator, Hx Congestive Heart Failure, Hx Coronary Artery Disease, Hx Hypertension, Hx Pacemaker/ICD, Other Cardiovascular Problems/Disorders - Pt states one valve doesn't function anymore Denies: Hx Aneurysm, Hx Angina, Hx Cardiac Arrest, Hx Cardiomegaly, Hx Congenital Heart Disease, Hx Deep Vein Thrombosis, Hx Embolism, Hx Hypercholesterolemia, Hx Hypotension, Hx Peripheral Vascular Disease, Hx Rheumatic Fever, Hx Syncope, Hx Valvular Heart Disease Respiratory History: Reports: Hx Chronic Bronchitis - last couple of months not current, Hx Chronic Obstructive Pulmonary Disease (COPD), Hx Pneumonia - winter 2009, Hx Sleep Apnea - uses O2 to sleep at night Denies: Hx Asthma, Hx Cystic Fibrosis, Hx Lung Cancer, Hx Pleural Effusion, Hx Pulmonary Edema, Hx Pulmonary Embolism, Hx Seasonal Allergies, Other Respiratory Problems/Disorders GI History: Reports: Hx Hiatal Hernia, Other GI Disorders - hernia in upper abdomen Denies: Hx Cirrhosis, Hx Crohn's Disease, Hx Diverticulosis, Hx Gall Bladder Disease, Hx Gastroesophageal Reflux Disease, Hx Gastrointestinal Bleed, Hx Irritable Bowel, Hx Jaundice, Hx Obstructive Bowel, Hx Ileostomy, Hx Pyloric Stenosis, Hx Ulcer History: Denies: Hx Acute Renal Failure, Hx Benign Prostatic Hyperplasia, Hx Chronic Renal Failure, Hx Dialysis, Hx Kidney Infection, Hx Kidney Stones, Hx Renal Disease, Other Problems/Disorders Musculoskeletal History: Reports: Other Musculoskeletal History - hiatal hernia Sensory History: Reports: Hx Contacts or Glasses - does not have glasses with him Denies: Hx Cataracts, Hx Eye Injury, Hx Eye Prosthesis, Hx Glaucoma, Hx Legally Blind, Hx Macular Degeneration, Hx Vision Problem, Hx Deafness, Hx Hearing Aid, Hx Hearing Problem, Other Sensory Impairments Opthamlomology History: Reports: Hx Contacts or Glasses - does not have glasses with him Denies: Hx Cataracts, Hx Eye Injury, Hx Eye Prosthesis, Hx Glaucoma, Hx Legally Blind, Hx Macular Degeneration, Hx Vision Problem, Other Sensory Impairments Neurological History: Denies: Hx Dementia, Hx Developmental Delay, Hx Headaches, Hx Migraine, Hx Nerve Disease, Hx Seizures, Hx Spinal Cord Injury, Hx Transient Ischemic Attacks (TIA), Other Neuro Impairments/Disorders Psychiatric History: Reports: Hx Substance Abuse - NONE X 5 YRS, Other Psychiatric Issues/Disorders - former alcoholic Denies: Hx Attention Deficit Hyperactivity Disorder, Hx Eating Disorder, Hx Depression, Hx Panic Disorder, Hx Community Mental Health Tx, Hx Schizophrenia - Surgical History Surgery Procedure, Year, and Place: defibrillator. thrombectomy (lower leg scars) Hx Anesthesia Reactions: No Infectious Disease History: No Infectious Disease History: Denies: Hx Clostridium Difficile, Hx Hepatitis, Hx Human Immunodeficiency Virus (HIV), Hx of Known/Suspected MRSA, Hx Shingles, Hx Tuberculosis, Hx Known/ Suspected VRE, Hx Known/Suspected VRSA, Traveled Outside the [place] in Last 30 Days - Family History Known Family History: Positive: Cardiac Disease, Diabetes - Social History Alcohol Use: None Substance Use Type: Reports: None Substance Use Comment - Amount & Last Used: past hx coccaine use Smoking Status (MU): Heavy Every Day Tobacco Smoker Type: Cigarettes Length of Time of Smoking/Using Tobacco: 30+ years Have You Smoked in the Last Year: Yes Review of Systems Negative: Fever, Chills Negative: Chest Pain Positive: Shortness Of Breath, Cough Positive: Edema All Other Systems Reviewed And Are Negative: Yes Physical Exam Triage Information Reviewed: Yes Vital Signs On Initial Exam: Initial Vitals Temp Pulse Resp BP Pulse Ox 97.6 F 80 18 90/64 99 06/15/17 07:15 06/15/17 07:15 06/15/17 07:15 06/15/17 07:15 06/15/17 07:15 Vital Signs Reviewed: Yes Appearance: Positive: Well-Appearing, No Pain Distress Skin: Positive: Warm Head/Face: Positive: Normal Head/Face Inspection Eyes: Positive: EOMI ENT: Positive: Normal ENT inspection, Pharynx normal Respiratory/Lung Sounds: Positive: Rales - bilateral bases Cardiovascular: Positive: IRR. Negative: Murmur Abdomen Description: Positive: Nontender Musculoskeletal: Positive: Strength/ROM Intact, Edema Left - pitting, Edema Right - lower pitting Neurological: Positive: Sensory/Motor Intact, Alert, Oriented to Person Place, Time, CN Intact II-III Psychiatric: Positive: Normal - Gagan Coma Scale Best Eye Response: 4 - Spontaneous Best Motor Response: 6 - Obeys Commands Best Verbal Response: 5 - Oriented Coma Scale Total: 15 Diagnostics - Vital Signs Vital Signs Temp Pulse Resp BP Pulse Ox 06/15/17 07:15 97.6 F 80 18 90/64 99 - Laboratory Result Diagrams: 06/15/17 07:45 06/15/17 07:45 Lab Statement: Any lab studies that have been ordered have been reviewed, and results considered in the medical decision making process. - Radiology CXR Radiology Interpretation Completed By: Radiologist - Chest x-ray appearance is most consistent with mild pulmonary vascular congestion similar to the most recent June 04, 2017 chest x-ray. ED Physician has reviewed this report. - CT A/P CT Interpretation Completed By: Radiologist - Right pleural effusion. Left lower lobe lung mass is unchanged from May 25, 2007. ED Physician has reviewed this report. - EKG 0725 Cardiac Rate: NL - 83 BPM EKG Rhythm: Atrial Fibrillation EKG Interpretation: LBBB, no STEMI Course/Dx - Course Course Of Treatment: Patient presents with lower extremity edema and abdominal distention. Patient has hx of CHF. An EKG reveals A-fib. CXR reveals no significant changes from most recent CXR on 06/04/17. Troponin is 0.08 and Lactic acid is 2.7. CT A/P reveals right pleural effusion but is otherwise unchanged from previous CT . Patient is given Lasix, Metolazone, and Potassium Chloride. Patient is admitted by Dr. Yeager. I believe the lactic acid is elevated due to his CHF issue. - Diagnoses Provider Diagnoses: Congestive heart failure (CHF), Shortness of breath, Edema - Physician Notifications Discussed Care of Patient With: Carlton Yeager Time Discussed With Above Provider: 08:50 Instructed by Provider To: Admit As Inpatient - Critical Care Time Critical Care Time: 30-74 min Discharge - Discharge Plan Condition: Good Disposition: ADMITTED TO [facility] Referrals: Jamari Rangel MD [Primary Care Provider] - The documentation as recorded by the Damon couch Julia accurately reflects the service I personally performed and the decisions made by , Chaz Gibson MD.
[2017-06-15] MEDS: CMC:Epleronone (NF) 25 MG TAB PO SCH (11:39)
[2017-06-15] MEDS ORDERED: Albuterol 2.5 MG/3 ML NEB.SOL* (0.083%) INH PRN (11:48)
[2017-06-15] MEDS ORDERED: Acetaminophen TAB* 325 MG PO PRN (11:48)
[2017-06-15] MEDS ORDERED: Ondansetron INJ* 2 MG/ML VIAL IV PRN (11:48)
[2017-06-15] MEDS ORDERED: Albuterol HFA INHALER* 8 gm MDI INH PRN (11:58)
[2017-06-15] MEDS ORDERED: Dextrose 50% Syringe 50 ML* 25 GM/50 ML SYRINGE IV PUSH PRN (12:01)
[2017-06-15] MEDS: Nicotine PATCH 21 MG/24 HR* PATCH TRANSDERM SCH (13:03)
[2017-06-15] MEDS: Insulin LISPRO* 1 UNITS UNIT SUBCUT SCH (18:06)
[2017-06-15] MEDS: Furosemide IV* 10 MG/ML 10 ML VIAL (100 MG) IV SCH (18:06)
--- NOTE | 2017-06-15 18:30 | RAD ---
INDICATION: Abdominal pain COMPARISON: CT June 15, 2017 TECHNIQUE: Longitudinal and transverse scans of the right upper quadrant were obtained. Doppler interrogation of the hepatic and portal venous system was performed. FINDINGS: Liver: There is borderline hepatomegaly with hepatic steatosis. There are no masses . The liver measures 13.2 cm in cephalocaudal dimension. Vessels: There is normal hepatic and portal venous flow. Bile ducts: There is no evidence of intrahepatic or extrahepatic ductal dilatation. The common duct measures 0.2 cm. Gallbladder: The gallbladder wall appears thickened. The patient was tender over the gallbladder. There is no evidence of cholelithiasis. There is no pericholecystic fluid. Pancreas: The visualized pancreas appears normal Right kidney: The right kidney is normal in size and echogenicity. There are no calculi. There is a cyst in lower pole measuring 2.0 x 1.6 x 1.9 cm. There is no evidence of hydronephrosis. The right kidney measures 12.0 x 4.9 x 4.9 cm. IVC and aorta: The aorta and superior vena cava appear normal. Fluid: There is no ascites. Other: None. IMPRESSION: 1. BORDERLINE HEPATOMEGALY WITH HEPATIC STEATOSIS. 2. GALLBLADDER WALL THICKENING. NO CALCIFIED CHOLELITHIASIS. 3. INCIDENTAL RIGHT RENAL CYST
[2017-06-15] MEDS: Mometasone/Formoter 200/5 MDI INH SCH (19:32)
[2017-06-15] MEDS: Potassium Chlor TAB* 20 MEQ TAB.ER PO SCH (20:49)
[2017-06-15] MEDS ORDERED: Metoprolol Tartrate TAB* 50 mg PO SCH (21:00)
[2017-06-15] MEDS ORDERED: Nicotine Patch Removal NOTE FOLLOW UP SCH (21:00)
--- NOTE | 2017-06-15 21:08 | HP ---
CC: Dr. Rangel; Dr. Brar; Dr. Isaac Hernandez, [facility] * HISTORY AND PHYSICAL: DATE OF ADMISSION: 06/15/17 PRIMARY CARE PROVIDER: Jamari Rangel MD ATTENDING PHYSICIAN WHILE IN THE HOSPITAL: Atif Yeager MD * (report dictated by Fitz Rashid NP). CHIEF COMPLAINT: 1. Leg swelling. 2. Weight gain. HISTORY OF PRESENT ILLNESS: Mr. Cam is a 56-year-old male patient with advanced heart failure. He comes in today. He was just discharged on 06/11/17 from [place]. I am going to try to get the records from there. He came in today because his legs started swelling again. He started to get abdominal pain, which he says he typically gets when he starts going in to failure and he was noticing that he was more short of breath again at night, more short of breath with exertion. He was following his weights daily and he was concerned because they knew that he was probably retaining fluid again, so he came into the [facility] today. Denies any cough or fever. Denies any chest pain currently. He says he is having abdominal discomfort. He came into the ED. It was noted that he appeared to be in failure. He was evaluated in the ED and we were asked to evaluate for admission. Again, he denies having any vomiting. He had 2 episodes of diarrhea yesterday. He states he has been his meds as prescribed; but despite this, he says he just retained fluid again. PAST MEDICAL HISTORY: Significant for: 1. AFib. 2. Cardiomyopathy. His EF was 20%. 3. Hypertension. 4. Hyperlipidemia. 5. CAD. 6. PAD. 7. CVA x2. 8. DVT in the past. 9. History of CHF. 10. Cor pulmonale. 11. Gout. 12. CKD stage 3. 13. History of SC x5. 14. Diabetes. 15. Lung nodule. 16. COPD. PAST SURGICAL HISTORY: 1. The patient has had cardiac catheterization. 2. He has had an ICD placement. 3. He has had an iliofemoral thrombectomy. HOME MEDICATIONS: According to Sadiq's discharge: 1. Coumadin 2.5 mg daily. 2. Advair 1 puff inhaled b.i.d. 3. Demadex 80 mg twice a day. 4. Spironolactone 25 mg p.o. every other day. 5. MiraLAX 17 g p.o. daily. 6. Prilosec 20 mg daily. 7. Lopressor 50 mg p.o. b.i.d. 8. Magnesium oxide 400 mg daily. 9. Lisinopril 7.5 mg daily. 10. Colace 100 mg p.o. b.i.d. 11. Digoxin 0.125 mg daily. 12. B12 1000 mcg daily. 13. Lipitor 80 mg daily. 14. Aspirin 81 mg daily. 15. Allopurinol 200 mg daily. 16. Ventolin 2 puffs inhaled every 4 hours as needed. ALLERGIES TO MEDICATIONS: Include no known drug allergies. FAMILY HISTORY: The mother has a history of diabetes. She is . Father also had history of pneumonia and he is also . SOCIAL HISTORY: He is still smoking about half pack a day. He has no desire to quit. He does not drink alcohol. If he does, it is very rarely. Surrogate decision maker is his , Rosalba. REVIEW OF SYSTEMS: There is no documented fever. He does admit to a significant weight change. He states he has gained probably about 4 pounds since being discharged. He denies any double vision. No ear discharge. No rhinorrhea. No sore throat, no thyroid enlargement. Denied having any chest pain. There is dyspnea on exertion. There is orthopnea. There is no nocturnal dyspnea. There is abdominal pain. He admits that mostly in the lower quadrant, described as cramping, gets a little bit better with food. He denies any nausea, vomiting, or dysuria today. Denies any dysuria. No frequency, no seizure, no loss of conscious, no pruritus and no skin ulcerations. Review of 14 systems completed, all others negative. PHYSICAL EXAMINATION GENERAL: At this time, Mr. Cam is a 56-year-old male patient. He is chronically ill-appearing. He is sitting in the hospital bed. He does not appear to be in any acute distress. VITAL SIGNS: Blood pressure 92/73, pulse 79, respirations 22, O2 sat 97%, temperature 98.7. HEENT: Head atraumatic. Eyes: Sclerae anicteric and not pale. Throat: Oral mucosa appears to be moist. No oropharyngeal erythema. NECK: Supple. LUNGS: Diminished in the bases. No wheezes, rales, or rhonchi. HEART: Sounds S1, S2. Irregularly irregular rate. No murmurs, rubs, or gallops. ABDOMEN: Appeared to have ascites, was tender in the right upper quadrant. No tenderness in lower quadrant. Bowel sounds are present. EXTREMITIES: Pulses were 2+. They were diminished in the lower extremities; but in the upper extremities, he had 2+ pulses. He had 2 to 3+ pitting edema in the pedal area. He had 5/5 strength. NEUROLOGIC: He is awake, alert, oriented x3. Tongue midline. Hotel Valet Attendant were equal. He had no gross focal deficits. SKIN: Grossly intact. LABORATORY DATA: WBC 10.3, RBC of 4.17, hemoglobin 13.0, hematocrit of 39, and platelet count of 163. The INR was 3.69 today. His pH was 7.54, pCO2 of 34 , his pO2 was 90 that was done today. His sodium was 133, potassium of 3.0, chloride 94, his bicarb was 28, BUN 26, creatinine of 1.46, glucose 174. His lactic was 2.7, calcium 9.6, total bilirubin 2.3. AST 65, ALT 10, alk phos 200. His troponin was 0.08. Previously, his bili has been as high in the past as 2.2 in his LFTs, this is elevated for him. His lipase is pending. BNP was 680. Troponin was 0.08, which in the past he has been 0.07. We will trend these. Toxicology, his dig level last time he was here was 2.1. We are again waiting for that level. He had an abdomen and pelvis CT obtained today, which revealed right pleural effusion. Left lower lobe lung mass unchanged. Bilateral adrenal mass is unchanged and no evidence of bowel obstruction or abnormal mass identified. The CBD was not dilated. He did have a chest x-ray obtained today as well, which revealed chest x- ray appearance most consistent with mild pulmonary vascular congestion similar to . He had an EKG obtained today, which does show atrial fibrillation with a left bundle branch block and a PVC, it is similar to his previous EKGs. Old medical records were reviewed. ASSESSMENT AND PLAN: Mr. Cam is a complex 56-year-old male patient with multiple medical problems and advanced heart failure coming in today with weight gain despite diuretics 4 days ago and being admitted at [place] and will be admitted under observation status for: 1. Congestive heart failure exacerbation. Again, the patient has the combination of most likely right heart failure and left heart failure. He had an echo done on 06/04/17 when he was last year and his right ventricle was moderately dilated at that point. He had severe tricuspid regurg and the systolic pressure was 67 on the right side. He also had an EF of less than 20% . In addition to this, he also had aortic valve mean gradient of 10.5 and moderate to severe mitral regurg. He comes in again today because of his weight gain. He will be admitted like I said and I am going to put him on Lasix 80 mg IV b.i.d. and metolazone. We will hold these diuretics if his blood pressure falls below systolics at 90. We may need to consider adding medications like milrinone or possibly midodrine. I did place a call to Dr. Hernandez' group to make sure they do not have any other recommendations. We will continue his Aldactone in the setting of decompensated failure. I am holding the beta-marcos. I will continue lisinopril if his blood pressure is able to tolerate. We will continue his digoxin and again, we will try to diurese him, check daily weights, and we will continue to follow. 2. Abdominal pain. Again, etiology is unclear. Could just be related to passive congestion from the failure. I do note that his LFTs are up to date. His bilirubin is up. The CBD was normal on CT scan. I am going to get a right upper quadrant ultrasound. We will follow this. He has previously in the past had abdominal pain and elevated bili secondary to his failure because of gallbladder edema. I would like to diurese him and see if this improves. We will follow him closely. If he gets any fevers, white count goes up, I certainly would get Surgery involved, but again he would be a poor surgical candidate if his gallbladder had any disease or inflammation. 3. Hypertension. Again at this point, we are going to try to keep the blood pressure systolics greater than 90. We will follow this closely. 4. Hyperlipidemia. Continue statin therapy. 5. Coronary artery disease. Continue his aspirin, statin therapy for the time being. 6. Peripheral artery disease. Again, he is on aspirin and statin, continue. 7. History of cerebrovascular accident. Continue with secondary prevention. 8. Atrial fibrillation. He is on warfarin. INR is 3.69. We will hold tonight 's dose, follow the INR. Continue digoxin. I am checking his dig level in the setting of chronic kidney disease. 9. History of deep venous thrombosis. Again, he is on the warfarin. 10. Gout. Continue his allopurinol. 11. Chronic kidney disease. Creatinine is at 1.46. We will monitor this particularly in the setting of diuresing him. 12. Diabetes, lispro sliding scale has been ordered. 13. Chronic obstructive pulmonary disease. I have ordered nicotine patch. We will continue his albuterol and inhalers as prescribed. 14. Lung nodule. Follow with primary. 15. DVT prophylaxis. Again, INR is 3.69. 16. Code status. Full code. 17. Fluids, electrolytes and nutrition. He can have a heart healthy diet. TIME SPENT: Time spent on this admission was approximately 70 minutes; greater than half the time spent [id number] with the patient obtaining my history and physical, other half of the time spent going over the plan of care with the patient and implementing the plan of care. I did discuss the plan of care with my attending, Dr. Yeager; he is in agreement. FITZ RASHID NP [id number]/CPS #: [id number] MTDGhassan
[2017-06-16 06:57] LABS: Hematocrit 39 % (42-52); Hemoglobin 12.8 g/dl (14.0-18.0); Mean Corpuscular HGB Conc 33 g/dl (31-36); Mean Corpuscular Hemoglobin 31 pg (27-31); Mean Corpuscular Volume 94 fL (80-94); Mean Platelet Volume 11 um3 (7.4-10.4); Platelet Count 124 10^3/ul (150-450); Red Blood Count 4.12 10^6/ul (4.0-5.4); Red Cell Distribution Width 18 % (10.5-15); White Blood Count 6.9 10^3/ul (3.5-10.8)
[2017-06-16 07:02] LABS: INR 2.58 (0.77-1.02)
[2017-06-16 07:08] LABS: EGFR Non-African American 55.6 (>60)
[2017-06-16 07:37] LABS: ABS Basophils 0.1 10^3/ul (0-0.2); ABS Eosinophils 0.2 10^3/ul (0-0.6); ABS Lymphocytes 0.7 10^3/ul (1.0-4.8); ABS Monocytes 0.4 10^3/ul (0-0.8); ABS Neutrophils 5.5 10^3/ul (1.5-7.7); ABS Nucleated RBC 0 10^3/ul; Eosinophil % 3.1 % (0-6); Lymphocyte % 10.4 % (25-47); Nucleated Red Blood Cells % 0.1
[2017-06-16] MEDS: Potassium Chlor TAB* 20 MEQ TAB.ER PO SCH (08:15)
[2017-06-16] MEDS: Nicotine PATCH 21 MG/24 HR* PATCH TRANSDERM SCH (08:16)
[2017-06-16] MEDS: Furosemide IV* 10 MG/ML 10 ML VIAL (100 MG) IV SCH ×2 (08:17→16:00)
[2017-06-16] MEDS: Insulin LISPRO* 1 UNITS UNIT SUBCUT SCH ×2 (08:17→12:44)
[2017-06-16] MEDS: CMC:Epleronone (NF) 25 MG TAB PO SCH (08:25)
[2017-06-16] MEDS ORDERED: Allopurinol TAB* 100 MG PO SCH (09:00)
[2017-06-16] MEDS ORDERED: Metolazone TAB* 5 MG PO SCH (09:00)
[2017-06-16] MEDS ORDERED: Aspirin EC Low Dose* 81 MG TAB.EC PO SCH (09:00)
[2017-06-16] MEDS ORDERED: Warfarin TAB(*) 2.5 MG PO SCH (09:00)
[2017-06-16] MEDS ORDERED: Atorvastatin* 80 MG TAB PO SCH (09:00)
[2017-06-16] MEDS ORDERED: Omeprazole CAP* 20 MG PO SCH (09:00)
[2017-06-16] MEDS ORDERED: Digoxin TAB* 0.125 MG PO SCH (09:00)
[2017-06-16] MEDS ORDERED: Lisinopril TAB* 5 MG PO SCH (09:00)
[2017-06-16] MEDS: Mometasone/Formoter 200/5 MDI INH SCH (09:16)
[2017-06-16 12:15] VITALS: BP 102/59
[2017-06-16] MEDS ORDERED: Potassium Chlor TAB* 20 MEQ TAB.ER PO ONE (15:17)
[2017-06-17] MEDS ORDERED: Spironolactone TAB* 25 MG PO SCH (09:00)
--- NOTE | 2017-06-17 10:29 | DS ---
DISCHARGE SUMMARY: DATE OF ADMISSION: 06/15/2017 DATE OF DISCHARGE: 06/16/2017. ADMITTING PROVIDER: Fitz Rashid NP. ATTENDING PHYSICIAN: Garrison Heath MD. PRIMARY CARE PHYSICIAN: Dr. Rangel. PRIMARY EDITOR IN CHIEF NEWSPAPER: Dr. Brar. PRIMARY ADVANCE HEART FAILURE PHYSICIAN: Dr. Isaac Hernandez of [facility]. CHIEF COMPLAINT: Leg swelling with weight gain, shortness of breath, abdominal pain. PRINCIPAL DIAGNOSIS: Acute CHF exacerbation (the 3rd in 10 days). HISTORY OF PRESENT ILLNESS AND HOSPITAL COURSE: Jovanni Cam is a 56-year-old male with ischemic cardiomyopathy advanced heart failure with ejection fraction less than 20% and [id number] mitral valve regurgitation, severe tricuspid regurgitation, atrial fibrillation on Coumadin and digoxin, hypertension, hyperlipidemia, CAD, PAD, CVA x2, DVT remotely, gout, CKD stage 3 , myocardial infarction x5, non-insulin dependent diabetes mellitus, COPD, current smoker, lung nodules and therefore not eligible for LVAD or heart transplant consideration at [facility] recently, who is presenting for the third time in 10 days for acute CHF symptoms such as leg swelling, weight gain, who was at [facility] between June 04 and . He was getting worse over the next couple of days and then drove himself up to the [facility] where his advanced heart failure team is; however, he did not actually see Dr. Hernandez at that time and had an increase in his diuretics. Currently he is on torsemide 80 mg b.i.d. He is coming in with complaint of approximately 4 pounds increase in weight, abdominal discomfort, and increase in leg swelling. Upon presentation to [facility], he was noted to have 2 to 3+ pitting edema. Chest x-ray demonstrated mild pulmonary vascular congestion. He had a BNP of 680. Troponin of 0.08. He was started on IV Lasix at 40 mg in the morning and then increased at 80 mg b.i.d. along with metolazone 5 mg. A good diuresis was noted at negative 1600 day of admission and 1900 so far on day of discharge and drop in weight of from 92.5 kg to 88.9 kg. He is being discharged with close follow up already scheduled with Dr. Brar on June [address] Rangel on June 20 with additional diuretic of metolazone being added on along with some potassium supplementation. He had been 3.0 on presentation. Notably patient had quit smoking for several years while being evaluated for LVAD and heart transplant but resumed smoking and has no desire to quit at this time. He also attests to a poor diet although he has been relatively eating well over the last 10 days in general. Given his abdominal pain in the emergency room, he had a CT abdomen and pelvis without contrast which showed a right pleural effusion and a left lower lung mass unchanged from May 25, 2007, although unable to see those records at least it was 2 cm back in January 2013. He had bilateral adrenal masses also unchanged from May 25, 2007. He had ultrasound of his abdomen which showed borderline hepatomegaly with hepatic steatosis, gallbladder wall thickening. No cholelithiasis and an incidental right renal cyst. His creatinine on admission was 1.46 down to 1.33 after aggressive diuresis. Baseline over the recent years has been between 1.3 and 1.7. Additionally from that ultrasound the gallbladder wall appeared thickened and the patient had no evidence of cholelithiasis and there was no pericholecystic fluid. DISCHARGE MEDICATIONS: Include, 1. Metolazone 5 mg p.o. daily. 2. Albuterol Ventolin inhaler 1 to 2 puffs inhaled q. 6 hours p.r.n. 3. Allopurinol 100 mg p.o. daily. 4. Aspirin 81 mg p.o. daily. 5. Atorvastatin 80 mg p.o. daily. 6. Lisinopril 7.5 mg p.o. daily. 7. Omeprazole 20 mg p.o. daily. 8. Spironolactone 25 mg p.o. every other day. 9. Cyanocobalamin 1000 mcg p.o. daily. 10. Digoxin 0.125 mg p.o. daily. 11. Docusate 100 mg p.o. daily. 12. Advair 1 puff inhaled b.i.d. 13. Magnesium oxide 250 mg p.o. daily. 14. Metoprolol tartrate 50 mg p.o. b.i.d. 15. Nicotine patch 21 mg for 24 hours (new). 16. MiraLAX 17 g p.o. daily. 17. Torsemide 80 mg p.o. b.i.d. 18. Coumadin 2 mg p.o. daily reduced from original 2.5 mg daily, given presentation INR of 3.7. DISCHARGE DIET: Heart-healthy, carbohydrate consistent. Patient is notably resistant to any dietary modification advice. ACTIVITY LEVEL: No restrictions. FOLLOWUP: Please follow up with Dr. Brar on 06/19/[address] Rangel on 06/20/17 at 9 a.m. TIME SPENT: Time spent on discharge was 45 minutes. [id number]/[facility] #: [id number] CHRIS
== END 2017-06-16 16:54 | disposition home or self-care (01) ==
LOC: ED 06:58 → MEDTELE 08:54
PROVIDERS: ADMIT Internal Medicine; ATTEND Internal Medicine
DX: I13.0 Hypertensive heart and chronic kidney disease with heart failure and stage 1 through stage 4 chronic kidney disease, or unspecified chronic kidney disease (principal); I50.9 Heart failure, unspecified; N18.3 Chronic kidney disease, stage 3 (moderate); E11.22 Type 2 diabetes mellitus with diabetic chronic kidney disease; R10.9 Unspecified abdominal pain; I48.91 Unspecified atrial fibrillation; Z79.01 Long term (current) use of anticoagulants; I34.0 Nonrheumatic mitral (valve) insufficiency; I07.1 Rheumatic tricuspid insufficiency; E78.5 Hyperlipidemia, unspecified; I25.10 Atherosclerotic heart disease of native coronary artery without angina pectoris; I73.9 Peripheral vascular disease, unspecified; Z86.718 Personal history of other venous thrombosis and embolism; M10.9 Gout, unspecified; I25.2 Old myocardial infarction; F17.210 Nicotine dependence, cigarettes, uncomplicated; Z79.82 Long term (current) use of aspirin; Z79.899 Other long term (current) drug therapy; I44.7 Left bundle-branch block, unspecified
CPT/HCPCS: 36415; 36600; 71045; 74176; 76705; 80048; 80053; 80076; 80162; 82803; 83605; 83690; 83735; 83880; 84484; 85025; 85610; 87040; 93005; 94640; 94760; 96374; 96376; 99291; A9270-GY; G0378; J1940

== ENCOUNTER 2017-06-26 23:27 | Observation (INO) | payer MEDICARE ==
[2017-06-27] MEDS: Atropine SYRINGE* 0.1 MG/ML 10 ML SYRINGE (1 MG) ONE ×2 (00:10→00:12)
[2017-06-27] MEDS ORDERED: Atropine 1MG/ML INJ* 1 ML VIAL IV PUSH ONE (00:15)
[2017-06-27] MEDS ORDERED: Atropine SYRINGE* 0.1 MG/ML 10 ML SYRINGE (1 MG) ONE (00:16)
[2017-06-27] MEDS ORDERED: NS 0.9% 500 ML* 500 ML IV ONE ×3 (00:22→03:20)
[2017-06-27 00:34] LABS: INR 1.29 (0.77-1.02)
[2017-06-27 00:40] LABS: ABS Basophils 0.1 10^3/ul (0-0.2); ABS Eosinophils 0.2 10^3/ul (0-0.6); ABS Lymphocytes 0.9 10^3/ul (1.0-4.8); ABS Monocytes 0.8 10^3/ul (0-0.8); ABS Neutrophils 7.7 10^3/ul (1.5-7.7); ABS Nucleated RBC 0 10^3/ul; Eosinophil % 2.2 % (0-6); Hematocrit 40 % (42-52); Hemoglobin 13.7 g/dl (14.0-18.0); Lymphocyte % 9.6 % (25-47); Mean Corpuscular HGB Conc 34 g/dl (31-36); Mean Corpuscular Hemoglobin 31 pg (27-31); Mean Corpuscular Volume 91 fL (80-94); Mean Platelet Volume 12 um3 (7.4-10.4); Nucleated Red Blood Cells % 0.1; Platelet Count 182 10^3/ul (150-450); Red Blood Count 4.42 10^6/ul (4.0-5.4); Red Cell Distribution Width 17 % (10.5-15); White Blood Count 9.8 10^3/ul (3.5-10.8)
[2017-06-27 00:42] LABS: EGFR Non-African American 23.5 (>60)
[2017-06-27] MEDS ORDERED: Ondansetron INJ* 2 MG/ML VIAL IV PRN (01:10)
[2017-06-27] MEDS ORDERED: Acetaminophen TAB* 325 MG PO PRN (01:13)
[2017-06-27] MEDS ORDERED: Albuterol HFA INHALER* 8 gm MDI INH PRN (01:13)
[2017-06-27] MEDS ORDERED: NS 0.9% 1000 ML* 1,000 ML IV SCH ×2 (01:15→16:45)
--- NOTE | 2017-06-27 01:42 | ED ---
Hasmukh Kearns Gabriel, scribariane for Rachele Ramon MD on 06/27/17 at 0001 . Abdominal Pain/Male - HPI Summary HPI Summary: This patient is a 56 year old M presenting to [facility] with a chief complaint of ABD pain since 06-21-17. The patient rates the pain 8/10 in severity. Patient reports light headedness and WALKER. Patient denies nausea and syncope.Pt also got a call from his PCP for having abnormally low sodium levels (115) and was told to come to the ED. - History of Current Complaint Chief Complaint: EDAbdPain Stated Complaint: LOW SODIUM/ABD PAIN Time Seen by Provider: 06/26/17 23:40 Hx Obtained From: Patient Onset/Duration: Lasting Weeks - 1, Still Present Timing: Constant Severity Initially: Severe Severity Currently: Severe Pain Intensity: 8 Pain Scale Used: 0-10 Numeric Location: Epigastric Radiates: No Associated Signs And Symptoms: Positive: Negative - syncope, Other - light headedness, WALKER,. Negative: Nausea - Allergies/Home Medications Allergies/Adverse Reactions: Allergies Allergy/AdvReac Type Severity Reaction Status Date / Time No Known Allergies Allergy Verified 06/27/17 00:29 Home Medications: Home Medications Potassium Chlor TAB* [Potassium Chlor TAB 20 MEQ*] 20 meq PO DAILY 06/27/17 [ History Confirmed 06/27/17] Warfarin TAB(*) [Coumadin TAB(*)] 2.5 mg PO DAILY 06/27/17 [History Confirmed ] PMH/Surg Hx/FS Hx/Imm Hx Endocrine/Hematology History: Reports: Hx Anticoagulant Therapy - coumadin, Hx Diabetes Denies: Hx Blood Disorders, Hx Blood Transfusions, Hx Bone Marrow Disease, Hx Systemic Lupus Erythematosus, Hx Sickle Cell Disease, Hx Thyroid Disease, Hx Anemia, Hx Unexplained Bleeding, Other Endocrine/Hematological Disorders Cardiovascular History: Reports: Hx Angioplasty, Hx Auto Implanted Cardiovert Defib - defibrillator, Hx Congestive Heart Failure, Hx Coronary Artery Disease, Hx Hypertension, Hx Pacemaker/ICD, Other Cardiovascular Problems/Disorders - Pt states one valve doesn't function anymore Denies: Hx Aneurysm, Hx Angina, Hx Cardiac Arrest, Hx Cardiomegaly, Hx Congenital Heart Disease, Hx Deep Vein Thrombosis, Hx Embolism, Hx Hypercholesterolemia, Hx Hypotension, Hx Peripheral Vascular Disease, Hx Rheumatic Fever, Hx Syncope, Hx Valvular Heart Disease Respiratory History: Reports: Hx Chronic Bronchitis - last couple of months not current, Hx Chronic Obstructive Pulmonary Disease (COPD), Hx Pneumonia - winter 2009, Hx Sleep Apnea - uses O2 to sleep at night Denies: Hx Asthma, Hx Cystic Fibrosis, Hx Lung Cancer, Hx Pleural Effusion, Hx Pulmonary Edema, Hx Pulmonary Embolism, Hx Seasonal Allergies, Other Respiratory Problems/Disorders GI History: Reports: Hx Hiatal Hernia, Other GI Disorders - hernia in upper abdomen Denies: Hx Cirrhosis, Hx Crohn's Disease, Hx Diverticulosis, Hx Gall Bladder Disease, Hx Gastroesophageal Reflux Disease, Hx Gastrointestinal Bleed, Hx Irritable Bowel, Hx Jaundice, Hx Obstructive Bowel, Hx Ileostomy, Hx Pyloric Stenosis, Hx Ulcer History: Denies: Hx Acute Renal Failure, Hx Benign Prostatic Hyperplasia, Hx Chronic Renal Failure, Hx Dialysis, Hx Kidney Infection, Hx Kidney Stones, Hx Renal Disease, Other Problems/Disorders Musculoskeletal History: Reports: Other Musculoskeletal History - hiatal hernia Sensory History: Reports: Hx Contacts or Glasses - not with pt Denies: Hx Cataracts, Hx Eye Injury, Hx Eye Prosthesis, Hx Glaucoma, Hx Legally Blind, Hx Macular Degeneration, Hx Vision Problem, Hx Deafness, Hx Hearing Aid, Hx Hearing Problem, Other Sensory Impairments Opthamlomology History: Reports: Hx Contacts or Glasses - not with pt Denies: Hx Cataracts, Hx Eye Injury, Hx Eye Prosthesis, Hx Glaucoma, Hx Legally Blind, Hx Macular Degeneration, Hx Vision Problem, Other Sensory Impairments Neurological History: Denies: Hx Dementia, Hx Developmental Delay, Hx Headaches, Hx Migraine, Hx Nerve Disease, Hx Seizures, Hx Spinal Cord Injury, Hx Transient Ischemic Attacks (TIA), Other Neuro Impairments/Disorders Psychiatric History: Reports: Hx Substance Abuse - NONE X 5 YRS, Other Psychiatric Issues/Disorders - former alcoholic Denies: Hx Attention Deficit Hyperactivity Disorder, Hx Eating Disorder, Hx Depression, Hx Panic Disorder, Hx Community Mental Health Tx, Hx Schizophrenia - Surgical History Surgery Procedure, Year, and Place: defibrillator. thrombectomy (lower leg scars) Hx Anesthesia Reactions: No Infectious Disease History: No Infectious Disease History: Denies: Hx Clostridium Difficile, Hx Hepatitis, Hx Human Immunodeficiency Virus (HIV), Hx of Known/Suspected MRSA, Hx Shingles, Hx Tuberculosis, Hx Known/ Suspected VRE, Hx Known/Suspected VRSA, Traveled Outside the [place] in Last 30 Days - Family History Known Family History: Positive: Cardiac Disease, Diabetes - Social History Occupation: Unemployed Lives: With Family Alcohol Use: Occasionally Substance Use Type: Reports: None Substance Use Comment - Amount & Last Used: past hx coccaine use Smoking Status (MU): Heavy Every Day Tobacco Smoker Type: Cigarettes Length of Time of Smoking/Using Tobacco: 30+ years Have You Smoked in the Last Year: Yes Review of Systems Positive: Abdominal Pain. Negative: Nausea Neurological: Negative - syncope , Other - light headedness Positive: Headache All Other Systems Reviewed And Are Negative: Yes Physical Exam - Summary Physical Exam Summary: VITAL SIGNS: Reviewed. GENERAL: Patient is a pale looking male who is lying comfortable in the stretcher. Patient appears moderately lethargic HEAD AND FACE: No signs of trauma. No ecchymosis, hematomas or skull depressions. No sinus tenderness. EYES: PERRLA, EOMI x 2, No injected conjunctiva, no nystagmus. EARS: Hearing grossly intact. Ear canals and tympanic membranes are within normal limits. MOUTH: Oropharynx within normal limits. NECK: Supple, trachea is midline, no adenopathy, no JVD, no carotid bruit, no c- spine tenderness, neck with full ROM. CHEST: Symmetric, no tenderness at palpation LUNGS: Clear to auscultation bilaterally. No wheezing or crackles. CVS: bradycardia S1 and S2 present, no murmurs or gallops appreciated. ABDOMEN: Soft, RUQ tenderness with ABD distension. EXTREMITIES: FROM in all major joints, no edema, no cyanosis or clubbing. NEURO: Alert and oriented x 3. No acute neurological deficits. Speech is normal and follows commands. SKIN: Dry and warm Triage Information Reviewed: Yes Vital Signs On Initial Exam: Initial Vitals Temp Pulse Resp BP Pulse Ox 96.2 F 71 26 104/90 99 06/26/17 23:30 06/26/17 23:30 06/26/17 23:30 06/26/17 23:30 06/26/17 23:30 Vital Signs Reviewed: Yes Diagnostics - Vital Signs Vital Signs Temp Pulse Resp BP Pulse Ox 06/26/17 23:30 96.2 F 71 26 104/90 99 - Laboratory Result Diagrams: 06/27/17 00:06 06/27/17 00:06 Lab Statement: Any lab studies that have been ordered have been reviewed, and results considered in the medical decision making process. - Radiology CXR Radiology Interpretation Completed By: ED Physician - hyperinflation and mild bilateral interstitial infiltrate consistent with mild copd and mild congestion - EKG 0010 Cardiac Rate: Other Rate EKG Rhythm: Atrial Fibrillation - at 44 BPM EKG Interpretation: LBBB, Abdominal Pain Fem Course/Dx - Course Assessment/Plan: This patient is a 56 year old M presenting to [facility] with a chief complaint of ABD pain since 06-21-17. The patient rates the pain 8/10 in severity. Patient reports light headedness and WALKER. Patient denies nausea and syncope. Pt also got a call from his PCP for having abnormally low sodium levels (115) and was told to come to the ED. An EKG reveals afib LBBB at 44. CXR reveals, hyperinflation and mild bilateral interstitial infiltrate consistent with mild copd and mild congestion. Pt most likely over diuresed, he was given normal saline in ED with some improvement. Test results with no significant abnormalities except for a sodium of 144 and a troponin of 0.05. In the ED course the patient was given IV fluids and atropine. Dx hyponatremia , dehydration and hypotension. We discussed patient care with Dr. Alvarez and they accepted the patient for admission. Patient will be admitted. The patient is agreeable with this plan. - Diagnoses Provider Diagnoses: Hypotension, Hyponatremia, Dehydration - Provider Notifications Discussed Care Of Patient With: Rebeca Alvarez Time Discussed With Above Provider: 01:05 Instructed by Provider To: Admit As Inpatient - Critical Care Time Critical Care Time: 30-74 min - 40 min Discharge - Discharge Plan Condition: Fair Disposition: ADMITTED TO [facility] The documentation as recorded by the Hasmukh couch Gabriel accurately reflects the service I personally performed and the decisions made by , Rachele Ramno MD.
[2017-06-27] MEDS ORDERED: Dextrose 50% Syringe 50 ML* 25 GM/50 ML SYRINGE IV PUSH PRN (01:43)
[2017-06-27 02:46] LABS: Urine Appearance Clear; Urine Blood Negative (Negative); Urine Color Yellow; Urine Ketones Negative (Negative); Urine Protein Negative (Negative); Urine Specific Gravity 1.006 (1.010-1.030); Urine Urobilinogen Negative (Negative)
[2017-06-27 04:32] LABS: Hematocrit 40 % (42-52); Hemoglobin 13.3 g/dl (14.0-18.0); Mean Corpuscular HGB Conc 33 g/dl (31-36); Mean Corpuscular Hemoglobin 31 pg (27-31); Mean Corpuscular Volume 93 fL (80-94); Mean Platelet Volume 11 um3 (7.4-10.4); Platelet Count 144 10^3/ul (150-450); Red Blood Count 4.35 10^6/ul (4.0-5.4); Red Cell Distribution Width 17 % (10.5-15); White Blood Count 7.6 10^3/ul (3.5-10.8)
[2017-06-27 04:48] LABS: EGFR Non-African American 26.2 (>60)
[2017-06-27] MEDS ORDERED: NS 0.9% 1000 ML* 1,000 ML IV ONE (05:15)
--- NOTE | 2017-06-27 07:39 | RAD ---
HISTORY: CHF COMPARISONS: June 15, 2017 VIEWS: 1: frontal portable view of the chest at 12:47 AM FINDINGS: LINES AND TUBES: A left-sided AICD is noted CARDIOMEDIASTINAL SILHOUETTE: The cardiomediastinal silhouette is normal for portable technique. PLEURA: The costophrenic angles are sharp. No pleural abnormalities are noted. LUNG PARENCHYMA: There is prominence of the central pulmonary vasculature. ABDOMEN: The upper abdomen is clear. There is no subphrenic gas. BONES AND SOFT TISSUES: No bone or soft tissue abnormalities are noted. IMPRESSION: PULMONARY VASCULAR CONGESTION
[2017-06-27] MEDS: Heparin VIAL(*) 5000 UNITS/ML VIAL (FIVE THOUSAND) SUBCUT SCH ×2 (08:02→21:05)
[2017-06-27] MEDS: Cyanocobalamin TAB* 500 MCG PO SCH (08:02)
[2017-06-27] MEDS: Nicotine PATCH 14 MG/24 HR* PATCH TRANSDERM SCH (08:02)
[2017-06-27] MEDS: Aspirin EC Low Dose* 81 MG TAB.EC PO SCH (08:02)
[2017-06-27] MEDS: Omeprazole CAP* 20 MG PO SCH ×2 (08:02→17:40)
[2017-06-27] MEDS: Allopurinol TAB* 100 MG PO SCH ×2 (08:02→21:05)
[2017-06-27 08:32] LABS: INR 1.37 (0.77-1.02)
[2017-06-27] MEDS: Insulin LISPRO* 1 UNITS UNIT SUBCUT SCH ×4 (08:32→21:20)
[2017-06-27] MEDS: Mometasone/Formoter 100/5 MDI INH SCH ×2 (08:33→20:56)
[2017-06-27 12:17] LABS: EGFR Non-African American 33.2 (>60)
--- NOTE | 2017-06-27 14:16 | HP ---
CC: Dr. Rangel HISTORY AND PHYSICAL: DATE OF ADMISSION: 06/27/17 PRIMARY CARE PROVIDER: Dr. Rangel. HAND SHAKER: Ms. Soto, Dr. Hernandez. CHIEF COMPLAINT: The patient was instructed to present to the emergency room for evaluation of lab a bnormalities and abdominal pain. HISTORY OF PRESENT ILLNESS: Mr. Cam is a 56-year-old male who has a history of severe cardiomyopat hy with an EF of less than 20% who has been hospitalized 3 times in the last approximate 3 weeks, [facility] admission 06/04/17 through 06/06/17 for acute CHF and next admission sometime between 06/06/17 thr ough 06/11/17 at [facility] for CHF and again 06/15/17 through 06/16/17 for CHF who now presents with complaints of lab abnormalities. The patient reportedly had blood work performed for h is primary care provider. He states he was contacted at approximately 10:30 p.m. on the night prior to admission stating that his labs were abnormal and he needed to go to the emergency room. The jack ent presented with this complaint as well complaint of abdominal pain. The patient states his lower extremity edema has completely resolved. He notes that his breathing has been feeling comfortable si nce his last discharge from [facility] on 06/16/17. The patient does state he continues to have abdominal p ain. It is worse now than it has been. He describes the pain as being across the upper abdomen. Add itionally he has had vomiting after eating and diarrhea. The patient states the diarrhea has been ov er the last 3 days; however, according to his last history and physical he was having diarrhea at ramya t point as well. He also complains of chills and poor appetite. He notes that he does feel lighthea ded on occasion. He notes he has been getting very tired with any exertion. PAST MEDICAL HISTORY: 1. Atrial fibrillation. 2. Severe cardiomyopathy, EF less than 20%. 3. Hypertension. 4. Hyperlipidemia. 5. Coronary artery disease. 6. Peripheral arterial disease. 7. History of CVA x2. 8. History of DVT. 9. History of CHF. 10. Cor pulmonale. 11. Gout. 12. Stage III chronic kidney disease. 13. Type 2 diabetes. 14. Lung nodule. 15. COPD. PAST SURGICAL HISTORY: 1. ICD placement. 2. Ileofemoral thrombectomy. MEDICATIONS: 1. Lipitor 80 mg p.o. daily. 2. Aspirin 81 mg p.o. daily. 3. Allopurinol 100 mg p.o. twice daily. 4. Albuterol 2 puffs inhale q. 6 hours p.r.n. shortness of breath. 5. Magnesium oxide 250 mg p.o. daily. 6. Lisinopril 7.5 mg p.o. daily. 7. Advair 100/50 one puff inhale twice daily. 8. Colace 100 mg p.o. b.i.d. 9. Digoxin 0.125 mg p.o. daily. 10. Vitamin B12 of 1000 mcg p.o. daily. 11. Omeprazole 20 mg p.o. twice daily. 12. Metoprolol tartrate 50 mg p.o. twice daily. 13. Metolazone 5 mg p.o. daily. 14. Spironolactone 25 mg p.o. every other day. 15. Potassium chloride 20 mEq p.o. daily. 16. MiraLax 17 g p.o. daily p.r.n. constipation. 17. Coumadin 2.5 mg p.o. daily. 18. Torsemide 80 mg p.o. daily. ALLERGIES: No known drug allergies. FAMILY HISTORY: The patient's mom has history of diabetes. She is . Father of pneumoni a. SOCIAL HISTORY: The patient is smoking 5 to 7 cigarettes per day. He is working on quitting. He pr eviously was smoking up to 2 packs per day. He does not drink alcohol. 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 He is . He has no children. He indicates that his Rosalba is his healthcar e proxy. REVIEW OF SYSTEMS: A complete 11-system review of systems is obtained. Pertinent positives, negativ es are as per HPI and in addition the patient does complain of mild headache and feeling achy across his shoulders, otherwise review of systems is negative. PHYSICAL EXAMINATION GENERAL: The patient is a well-developed middle-aged male sitting up on a stretcher, in no acute dis tress. VITAL SIGNS: Blood pressure 62/50, pulse 62, respirations 26, temp 96.2, O2 saturation 94% on room a ir. HEENT: Pupils are equal. They are round. Extraocular muscles are intact. Oropharynx is clear. Ora l mucosa is very dry. The tongue is furrowed. There is no submandibular, cervical or supraclavicula r adenopathy. Thyroid is not enlarged. No thyroid nodules are noted. PULMONARY: There are minimally bibasilar crackles. CARDIAC: Normal S1, S2. Regular rate and rhythm. I did not appreciate any murmurs. ABDOMEN: Bowel sounds present. Abdomen is soft, nondistended. He is tender to palpation in the epi gastrium and slightly in the right upper quadrant. MUSCULOSKELETAL: There is no cyanosis or clubbing of the digits. There is full active range of diony on of all 4 extremities. SKIN: Warm and dry. There are no rashes. NEUROLOGIC: Cranial nerves II through XII are grossly intact. Sensation is intact to light touch th roughout. Strength is 5/5 and symmetric in both upper and lower extremities bilaterally. PSYCH: The patient is alert. He is oriented x3. Affect appears appropriate. LABORATORY DATA: WBC 9.8, hemoglobin 13.7, hematocrit 40, platelets 182, INR 1.29. Sodium 114, pota ssium 3.8, chloride 77, CO2 of 27, BUN 84, creatinine 2.81, glucose 159, lactic acid 1.2. Potassium 9.4, magnesium 3.3, bilirubin 1.5. AST 18, ALT 21, alk-phos 151, troponin 0.05, BNP 411, albumin of 4.0, amylase 133, lipase 150, TSH 5.33, digoxin 0.8. EKG reveals atrial fibrillation. Chest x-ray: My evaluation appears to show mild cephalization of the vessel. There is significant di fference from the chest x-ray 06/15/17. We will await the formal read. ASSESSMENT AND PLAN: Mr. Cam is a 56-year-old male with a history of likely end- stage congestive heart failure with an EF of less than 20%, hypertension, hyperlipidemia, type 2 diabetes, atrial fibr illation and likely chronic obstructive pulmonary disease with ongoing tobacco abuse who presents to the emergency room after being informed that he has abnormal labs. 1. Hyponatremia: I suspect at this point, the patient has been over diuresed. During his last hospi talization, the patient had previously had his diuretics increased. At this point, he appears volume deplete. The patient is receiving gentle IV fluid hydration. A repeat electrolyte level is ordered for 0400. We want to try to not increase his sodium level too quickly as this is possibly subacute. His most recent sodium level on 06/16/17 was 134. 2. Acute kidney injury: The patient's baseline creatinine is around 1.3 to 1.4. His creatinine toda y is 2.81. Again I suspect this is secondary to over diuresis. The patient is going to be receiving IV fluid hydration. His lisinopril is going to be held as his torsemide, metolazone and spironolacto ne. Ultimately these medications will need to be added back and he will therefore need very close mo nitoring of his renal function. 3. Bradycardia and hypotension: The hypotension I suspect is secondary to his volume depletion; how ever, the bradycardia cause is not clear. I am suspecting his digoxin level may have been suprathera peutic; however, this appears to be within the normal range. Perhaps his bradycardia is related to h is metoprolol dosing. I am holding his metoprolol currently. We will need to follow his heart rate and blood pressure to determine when/if this should be added back. 4. Abdominal pain: The patient has had constant complaint of abdominal pain with each of his admiss ions. No clear etiology has been identified. I do question if this may be passive congestion of the liver secondary to the heart failure. There has been a question of gallbladder wall thickening and perhaps this is related. However, the patient is not really a candidate for any aggressive treatment of gallbladder disease. 5. Coronary artery disease: We will continue aspirin and statin. 6. Atrial fibrillation: The patient's INR is subtherapeutic at 1.29. I will recheck the INR in the morning and a determination will need to be made on what dose to give the patient in terms of his Co umadin. 7. Chronic obstructive pulmonary disease /ongoing tobacco abuse: We will order a nicotine patch. C ontinue p.r.n. albuterol and inhaled steroid. 8. Type 2 diabetes: The patient's most recent A1c in our system was from 2012. We will update this. He will be placed on lispro sliding scale. 9. DVT prophylaxis: According to the Adult Thrombosis Prophylaxis Risk Factor Assessment Guide, the patient has a total risk factor score of 2 making him moderate risk. Heparin 5000 units subcutaneou s q. 12 hours will be utilized as DVT prophylaxis until his INR is therapeutic. 10. Code status is DNR. The patient will benefit from a Palliative Care consult and this will be en tered. The patient is agreeable. He states he was on hospice previously, was signed off. The patie nt does seem to be hospice appropriate currently especially with now his fourth hospitalization in ap proximately 1 month. TIME SPENT: 65 minutes were spent admitting this patient. [id number]/[facility]PS #: [id number]
--- NOTE | 2017-06-27 16:36 | PN ---
Hospitalist Progress Note Date of Service: 06/27/17 I have seen and examined Mr. Cam today. He was admitted overnight because his PCP called him for an abnormal sodium level. Mr. Cam would not have known anything was wrong, but did admit to feeling "dried out," 3 lbs below his dry weight, and has had abdominal pain, diarrhea, and poor po intake over the past week. His torsemide dose has not been recently adjusted. On exam this morning, he was alert, oriented, and talking appropriately with me. His jugular veins are flat, an aicd is present in the left chest wall, and he has no s3/s4. His abdomen is minimally tender to deep palpation with no guarding/rebound. A/P: I agree that his hyponatremia is likely from hypovolemia. His volume status exam is very clearly volume deplete, and his other lab data also are consistent with volume depletion. He is responding well to normal saline, which also supports this. Alternatively, he has lung nodules that could be contributing but I would not expect such an acute drop in sodium. He did drink heavily, but denies it currently, and is certainly not in decompensated heart failure. I will continue normal saline with frequent BMP checks. Regarding his systolic heart failure, he is not a candidate for a transplant or vad due to lung nodules. Will monitor volume status closely in setting of ivf resuscitation. He has an aicd for primary prevention.
[2017-06-27] MEDS ORDERED: Atorvastatin* 80 MG TAB PO SCH (17:00)
[2017-06-27] MEDS ORDERED: Digoxin TAB* 0.125 MG PO SCH (17:00)
[2017-06-27] MEDS ORDERED: Nicotine Patch Removal NOTE FOLLOW UP SCH (21:00)
[2017-06-28 06:57] LABS: Hematocrit 35 % (42-52); Hemoglobin 11.9 g/dl (14.0-18.0); Mean Corpuscular HGB Conc 34 g/dl (31-36); Mean Corpuscular Hemoglobin 32 pg (27-31); Mean Corpuscular Volume 92 fL (80-94); Mean Platelet Volume 11 um3 (7.4-10.4); Platelet Count 122 10^3/ul (150-450); Red Blood Count 3.77 10^6/ul (4.0-5.4); Red Cell Distribution Width 16 % (10.5-15); White Blood Count 5.2 10^3/ul (3.5-10.8)
[2017-06-28 08:10] LABS: ABS Basophils 0 10^3/ul (0-0.2); ABS Eosinophils 0.1 10^3/ul (0-0.6); ABS Lymphocytes 0.6 10^3/ul (1.0-4.8); ABS Monocytes 0.5 10^3/ul (0-0.8); ABS Neutrophils 3.9 10^3/ul (1.5-7.7); ABS Nucleated RBC 0 10^3/ul; Eosinophil % 1.5 % (0-6); Lymphocyte % 11.8 % (25-47); Nucleated Red Blood Cells % 0.1
[2017-06-28] MEDS: Mometasone/Formoter 100/5 MDI INH SCH (08:11)
[2017-06-28] MEDS: Cyanocobalamin TAB* 500 MCG PO SCH (08:30)
[2017-06-28] MEDS: Allopurinol TAB* 100 MG PO SCH (08:30)
[2017-06-28] MEDS: Omeprazole CAP* 20 MG PO SCH (08:30)
[2017-06-28] MEDS: Aspirin EC Low Dose* 81 MG TAB.EC PO SCH (08:30)
[2017-06-28] MEDS: Heparin VIAL(*) 5000 UNITS/ML VIAL (FIVE THOUSAND) SUBCUT SCH (08:30)
[2017-06-28] MEDS: Nicotine PATCH 14 MG/24 HR* PATCH TRANSDERM SCH (08:38)
[2017-06-28 08:43] LABS: EGFR Non-African American 55.6 (>60)
[2017-06-28] MEDS: Insulin LISPRO* 1 UNITS UNIT SUBCUT SCH (09:03)
[2017-06-28 10:29] VITALS: BP 110/67
--- NOTE | 2017-06-28 13:04 | DS ---
CC: Dr. Rangel * DATE OF ADMISSION: 06/27/2017. DATE OF DISCHARGE: 06/28/2017. HISTORY OF PRESENT ILLNESS: This 56-year-old man was told to go to the emergency room because of abnormal laboratory tests. He felt about as well as ever. He did notice that he had recently lost two pounds. He weight himself at home. He says he follows his diet well. He takes all his medications carefully. He was found to have severe hyponatremia. He is known to have severe cardiomyopathy and renal insufficiency. The patient recently had Metolazone added to his diuretic regimen. He was changed from Furosemide to Torsemide. He does report he has a good diuresis when he takes the Metolazone and Torsemide in the morning at home. He does not have much of any noticeable diuresis with the Torsemide in the evening. I think it might simplify things to just skip the evening dose of Torsemide, especially as he is getting very effective diuresis all in all. His sodium was 119 on admission, it was 129 on the day of discharge. His urine output was 5 liters, probably mostly free water. He had lost two pounds here. His creatinine fell from 2.08 to 1.33. I think he did get some IV fluids. He did not receive a diuretic here in the hospital. I am reducing his Torsemide to 40 mg once a day in the morning and none in the evening. He will continue with Metolazone 5 mg daily in the morning. He was instructed to take today's Metolazone and Torsemide as soon as he got home. He was told to weigh himself every day, write down the results. He was told if his weight goes up more than two pounds from the first weight he gets at home, to increase the Torsemide to 60 mg daily and if that does not stabilize his weight, to increase it further to 80 mg daily. He was told if his weight goes to two pounds below the first weight he gets, to reduce his Torsemide dose by one tablet daily. He will get a BMP in two days. He will see Dr. Rangel within a week. FINAL DIAGNOSES: 1. Hyponatremia. 2. Congestive heart failure. 3. Renal insufficiency. 4. Coronary artery disease. 5. Atrial fibrillation. 6. Diabetes. I note his INR was subtherapeutic, this should be followed carefully at home. I did not change his Warfarin dose. I am not sure what other changes have been made recently. DISCHARGE MEDICATIONS: 1. Cyanocobalamin 1,000 mcg daily. 2. Atorvastatin 80 mg daily at 5:00 p.m. 3. Polyethylene Glycol 17 gm daily. 4. Aspirin 81 mg daily. 5. Omeprazole 20 mg b.i.d. 6. Albuterol inhaler one to two puffs every 6 hours prn. 7. Docusate 100 mg b.i.d. 8. Spironolactone 25 mg every other day. 9. Lisinopril 7.5 mg daily. 10. Allopurinol 100 mg b.i.d. 11. Metoprolol 50 mg b.i.d. 12. Fluticasone/Salmeterol one puff b.i.d. 13. Magnesium Oxide 250 mg daily. 14. Digoxin 0.125 mg daily. 15. Metolazone 5 mg daily. 16. Warfarin 2.5 mg daily. 17. Potassium Chloride 20 mEq daily. 18. Torsemide 40 mg daily. [id number]/[facility] #: [id number] [facility]
== END 2017-06-28 11:30 | disposition home or self-care (01) ==
LOC: ED 23:27 → INTOOBSV 06-27 01:10 → ICU 06-27 01:10
PROVIDERS: ADMIT Hospitalist; ATTEND Internal Medicine
DX: E87.1 Hypo-osmolality and hyponatremia (principal); I50.9 Heart failure, unspecified; R10.9 Unspecified abdominal pain; N28.9 Disorder of kidney and ureter, unspecified; I25.10 Atherosclerotic heart disease of native coronary artery without angina pectoris; I48.91 Unspecified atrial fibrillation; E11.9 Type 2 diabetes mellitus without complications; R42 Dizziness and giddiness; Z79.01 Long term (current) use of anticoagulants; F17.210 Nicotine dependence, cigarettes, uncomplicated; R51 Headache; I95.9 Hypotension, unspecified; E86.0 Dehydration; Z79.82 Long term (current) use of aspirin; I10 Essential (primary) hypertension
CPT/HCPCS: 36415; 71045; 80048; 80051; 80053; 80076; 80162; 81003; 82150; 83036; 83605; 83690; 83735; 83880; 84443; 84484; 85025; 85027; 85610; 85730; 86850; 86900; 86901; 87641; 93005; 94640; 94760; 99285; 99406; A9270-GY; G0378; J0461; J1644

== ENCOUNTER 2018-01-26 01:07 | Inpatient (IN) | payer MEDICARE ==
--- NOTE | 2018-01-26 01:25 | ED ---
Abdominal Pain/Male - HPI Summary HPI Summary: The pt is a 57 y/o male BIBA to [facility] c/o of diffuse abd pain since 10 days ago worsened COO. He notes weakness, vomiting, and dizziness but denies fever, CP, LOC, constipation and melena. His last normal bowel movement was yesterday afternoon. - History of Current Complaint Chief Complaint: EDAbdPain Stated Complaint: ABD PAIN Time Seen by Provider: 01/26/18 01:08 Hx Obtained From: Patient Onset/Duration: Lasting Days - 10 days, Still Present, Worse Since - COO Location: Diffuse Radiates: No - Allergies/Home Medications Allergies/Adverse Reactions: Allergies Allergy/AdvReac Type Severity Reaction Status Date / Time No Known Allergies Allergy Verified 06/27/17 00:29 Home Medications: Home Medications Torsemide TAB* [Demadex 20 MG*] 60 mg PO DAILY 01/26/18 [History Confirmed 01/26] PMH/Surg Hx/FS Hx/Imm Hx Previously Healthy: No Endocrine/Hematology History: Reports: Hx Anticoagulant Therapy - coumadin, Hx Diabetes Denies: Hx Blood Disorders, Hx Blood Transfusions, Hx Bone Marrow Disease, Hx Systemic Lupus Erythematosus, Hx Sickle Cell Disease, Hx Thyroid Disease, Hx Anemia, Hx Unexplained Bleeding, Other Endocrine/Hematological Disorders Cardiovascular History: Reports: Hx Angioplasty, Hx Auto Implanted Cardiovert Defib - defibrillator, Hx Congestive Heart Failure, Hx Coronary Artery Disease, Hx Hypertension, Hx Pacemaker/ICD, Other Cardiovascular Problems/Disorders - Pt states one valve doesn't function anymore Denies: Hx Aneurysm, Hx Angina, Hx Cardiac Arrest, Hx Cardiomegaly, Hx Congenital Heart Disease, Hx Deep Vein Thrombosis, Hx Embolism, Hx Hypercholesterolemia, Hx Hypotension, Hx Peripheral Vascular Disease, Hx Rheumatic Fever, Hx Syncope, Hx Valvular Heart Disease Respiratory History: Reports: Hx Chronic Bronchitis - last couple of months not current, Hx Chronic Obstructive Pulmonary Disease (COPD), Hx Pneumonia - winter 2009, Hx Sleep Apnea - uses O2 to sleep at night Denies: Hx Asthma, Hx Cystic Fibrosis, Hx Lung Cancer, Hx Pleural Effusion, Hx Pulmonary Edema, Hx Pulmonary Embolism, Hx Seasonal Allergies, Other Respiratory Problems/Disorders GI History: Reports: Hx Hiatal Hernia, Other GI Disorders - hernia in upper abdomen Denies: Hx Cirrhosis, Hx Crohn's Disease, Hx Diverticulosis, Hx Gall Bladder Disease, Hx Gastroesophageal Reflux Disease, Hx Gastrointestinal Bleed, Hx Irritable Bowel, Hx Jaundice, Hx Obstructive Bowel, Hx Ileostomy, Hx Pyloric Stenosis, Hx Ulcer History: Denies: Hx Acute Renal Failure, Hx Benign Prostatic Hyperplasia, Hx Chronic Renal Failure, Hx Dialysis, Hx Kidney Infection, Hx Kidney Stones, Hx Renal Disease, Other Problems/Disorders Musculoskeletal History: Reports: Hx Gout, Other Musculoskeletal History - hiatal hernia Denies: Hx Arthritis, Hx Back Problems, Hx Orthopedic Injury Sensory History: Reports: Hx Contacts or Glasses - Reading Denies: Hx Cataracts, Hx Eye Injury, Hx Eye Prosthesis, Hx Glaucoma, Hx Legally Blind, Hx Macular Degeneration, Hx Vision Problem, Hx Deafness, Hx Hearing Aid, Hx Hearing Problem, Other Sensory Impairments Opthamlomology History: Reports: Hx Contacts or Glasses - Reading Denies: Hx Cataracts, Hx Eye Injury, Hx Eye Prosthesis, Hx Glaucoma, Hx Legally Blind, Hx Macular Degeneration, Hx Vision Problem, Other Sensory Impairments Neurological History: Denies: Hx Dementia, Hx Developmental Delay, Hx Headaches, Hx Migraine, Hx Nerve Disease, Hx Seizures, Hx Spinal Cord Injury, Hx Transient Ischemic Attacks (TIA), Other Neuro Impairments/Disorders Psychiatric History: Reports: Hx Substance Abuse - NONE X 5 YRS, Other Psychiatric Issues/Disorders - former alcoholic Denies: Hx Anxiety, Hx Attention Deficit Hyperactivity Disorder, Hx Eating Disorder, Hx Depression, Hx Panic Disorder, Hx Community Mental Health Tx, Hx Schizophrenia - Surgical History Surgery Procedure, Year, and Place: defibrillator. thrombectomy (lower leg scars) Hx Anesthesia Reactions: No Infectious Disease History: Denies: Hx Clostridium Difficile, Hx Hepatitis, Hx Human Immunodeficiency Virus (HIV), Hx of Known/Suspected MRSA, Hx Shingles, Hx Tuberculosis, Hx Known/ Suspected VRE, Hx Known/Suspected VRSA - Family History Known Family History: Positive: Cardiac Disease, Diabetes - Social History Occupation: Unemployed Lives: With Family Alcohol Use: None Substance Use Type: Reports: None Substance Use Comment - Amount & Last Used: past hx coccaine use Smoking Status (MU): Heavy Every Day Tobacco Smoker Type: Cigarettes Length of Time of Smoking/Using Tobacco: 30+ years Have You Smoked in the Last Year: Yes Review of Systems Constitutional: Negative - LOC, Other - Positive: weakness, dizziness Negative: Fever Negative: Chest Pain Gastrointestinal: Negative - Constipation, melena Positive: Abdominal Pain - Diffuse , Vomiting All Other Systems Reviewed And Are Negative: Yes Physical Exam - Summary Physical Exam Summary: VITAL SIGNS: Reviewed. GENERAL: Patient is a well-developed and nourished male who is lying comfortable in the stretcher. Patient is not in any acute respiratory distress. HEAD AND FACE: No signs of trauma. No ecchymosis, hematomas or skull depressions. No sinus tenderness. EYES: PERRLA, EOMI x 2, No injected conjunctiva, no nystagmus. EARS: Hearing grossly intact. Ear canals and tympanic membranes are within normal limits. MOUTH: Oropharynx within normal limits. NECK: Supple, trachea is midline, no adenopathy, no JVD, no carotid bruit, no c- spine tenderness, neck with full ROM. CHEST: Symmetric, no tenderness at palpation LUNGS: Clear to auscultation bilaterally. No wheezing or crackles. CVS: Regular rate and rhythm, S1 and S2 present, no murmurs or gallops appreciated. ABDOMEN: Soft, diffusely tender. No signs of distention. No rebound no guarding , and no masses palpated. Bowel sounds are normal. RECTAL EXAM: Revealed brown stool which was sent to the lab for an occult test EXTREMITIES: FROM in all major joints, no edema, no cyanosis or clubbing. NEURO: Alert and oriented x 3. No acute neurological deficits. Speech is normal and follows commands. SKIN: Pallor; Dry and warm Triage Information Reviewed: Yes Vital Signs On Initial Exam: Initial Vital Signs Resp 17 01/26/18 01:18 Vital Signs Reviewed: Yes Diagnostics - Laboratory Result Diagrams: 01/26/18 02:10 01/26/18 03:04 Lab Statement: Any lab studies that have been ordered have been reviewed, and results considered in the medical decision making process. - Radiology CXR Radiology Interpretation Completed By: ED Physician - IMPRESSION:Bilateral cardiomegalyl; Mild bilateral venous congestion Pending official report - EKG 01:21 Cardiac Rate: NL - 62 bpm EKG Rhythm: Atrial Fibrillation EKG Interpretation: LVH with strain Abdominal Pain Fem Course/Dx - Course Course Of Treatment: A 57 year-old M presents to the ED with a CC of diffuse abd pain since 10 days ago worsened COO. He notes weakness, vomiting, and dizziness but denies fever, CP, LOC, constipation and melena. His last normal bowel movement was yesterday afternoon. A physical exam revealed pallor, a diffusely tender and and brown stool which was sent to the lab for an occult test. ACXR revealed bilateral cardiomegaly and mild venous congestion. An EKG reveals A Fib with LVH with strain. In the ED course, pt was given Insulin 8 units IV, Metoclopramide 10 mg ,Morphine 4mg IV and N.s 0.9% 1000ml which improved the symptoms. The sx are most likely due to over diuresis. I discussed the care of the pt with Dr. Garrison Heath MD who agreed to admit he pt. The patient will be admitted with a final Dx of Hypotension, Dehydration, Hyponatremia, Hyperglycemia and Acute on chronic renal failure. Pt is agreeable with this plan. Allergies noted. - Diagnoses Provider Diagnoses: Hyponatremia, Hyperglycemia, Hypotension, Dehydration, Acute on chronic renal failure - Provider Notifications Discussed Care Of Patient With: Garrison Heath Time Discussed With Above Provider: 04:08 Instructed by Provider To: Admit As Inpatient Discharge - Sign-Out/Discharge Documenting (check all that apply): Patient Departure - Admit - Discharge Plan Condition: Improved Disposition: ADMITTED TO [facility] Referrals: Jamari Rangel MD [Primary Care Provider] - 2 Days - Attestation Statements Document Initiated by Scribe: Yes Documenting Scribe: Rolanda Shirley Provider For Whom Scribe is Documenting (Include Credential): Dr. Yenny Jeffrey MD Scribe Attestation: Rolanda Kearns , scribed for Dr. Yenny Jeffrey MD on 01/26/18 at 0419.
[2018-01-26] MEDS ORDERED: NS 0.9% 1000 ML* 1,000 ML IV ONE (01:27)
[2018-01-26] MEDS ORDERED: Ondansetron INJ* 2 MG/ML VIAL IV ONE (01:28)
[2018-01-26] MEDS ORDERED: Morphine INJ* 4 MG/ML 1 ML SYRINGE (NEW SYRINGE VERSION) IV ONE (01:28)
[2018-01-26 02:23] LABS: ABS Basophils 0.1 10^3/ul (0-0.2); ABS Eosinophils 0.1 10^3/ul (0-0.6); ABS Lymphocytes 0.8 10^3/ul (1.0-4.8); ABS Monocytes 0.7 10^3/ul (0-0.8); ABS Neutrophils 6.3 10^3/ul (1.5-7.7); ABS Nucleated RBC 0 10^3/ul; Eosinophil % 1.5 % (0-6); Hematocrit 46 % (42-52); Hemoglobin 15.6 g/dl (14.0-18.0); Lymphocyte % 10.2 % (25-47); Mean Corpuscular HGB Conc 34 g/dl (31-36); Mean Corpuscular Hemoglobin 29 pg (27-31); Mean Corpuscular Volume 86 fL (80-94); Mean Platelet Volume 11.9 um3 (7.4-10.4); Nucleated Red Blood Cells % 0.2; Platelet Count 104 10^3/ul (150-450); Red Blood Count 5.32 10^6/ul (4.00-5.40); Red Cell Distribution Width 16 % (10.5-15); White Blood Count 8.1 10^3/ul (3.5-10.8)
[2018-01-26 02:35] LABS: INR 3.36 (0.77-1.02)
[2018-01-26 02:41] LABS: EGFR Non-African American 24.4 (>60)
[2018-01-26] MEDS ORDERED: Metoclopramide IV* 5 MG/ML 2 ML VIAL IV SLOW PU ONE (03:29)
[2018-01-26] MEDS ORDERED: Insulin REGULAR(*) 1 UNITS UNIT IV PUSH ONE (03:30)
--- NOTE | 2018-01-26 03:43 | RAD ---
EXAM: CT Abdomen and Pelvis Without Intravenous Contrast EXAM DATE/TIME: Exam ordered 01/26/2018 2:56 AM CLINICAL HISTORY: 57 years old, male; Pain; Abdominal pain; Generalized; Additional info: Abd pain TECHNIQUE: Axial computed tomography images of the abdomen and pelvis without intravenous contrast. All CT scans at this facility use at least one of these dose optimization techniques: automated exposure control; mA and/or kV adjustment per patient size (includes targeted exams where dose is matched to clinical indication); or iterative reconstruction. Coronal and sagittal reformatted images were created and reviewed. COMPARISON: A/P WO CT ABD/PEL W/O 06/15/2017 8:42 AM FINDINGS: Lung bases: Lobular noncalcified nodule in the medial left lower lobe measuring 2.5 x 2.3 x 2.1 cm and is similar to the prior study. Minimal bibasilar fibro-atelectatic change and small calcified granulomata. ABDOMEN: Liver: Unremarkable. Gallbladder and bile ducts: Unremarkable. No calcified stones. No ductal dilation. Pancreas: Unremarkable. No ductal dilation. Spleen: The spleen measures 12.4 cm. Adrenals: Bilateral adrenal nodules measuring 2.9 x 2.1 x 2.7 cm on the right and 2.3 x 1.5 x 2.1 cm on the left. Kidneys and ureters: There is a right renal cyst measuring 2.4 cm. No obstructing stones. No hydronephrosis. Stomach and bowel: Unremarkable. No obstruction. No mucosal thickening. PELVIS: Appendix: A normal appendix is seen. Bladder: Unremarkable. No stones. Reproductive: Unremarkable as visualized. ABDOMEN and PELVIS: Intraperitoneal space: Unremarkable. No free air. No significant fluid collection. Bones/joints: No acute fracture. No dislocation. Soft tissues: Small fat filled left inguinal hernia. Perianal calcification which is unchanged. Vasculature: There is mild calcification of the abdominal aorta with extension into the iliac arteries. No abdominal aortic aneurysm. Lymph nodes: Unremarkable. No enlarged lymph nodes. Tubes, lines and devices: Pacemaker in position. IMPRESSION: 1. Resolution of right pleural effusion since 06/15/2017. There is persistent bibasilar fibro-atelectatic change and calcified granulomata and little change with lobular noncalcified left lower lobe nodule. 2. Borderline splenomegaly which is similar. 3. Bilateral adrenal nodules which appear to be similar. 4 small fat filled left inguinal hernia. To contact [facility] with a general question: Operations Center - [phone] For direct physician to physician contact: Physician Hotline - [phone] [facility] (ad Facility ID #[id number])
[2018-01-26 04:02] LABS: Urine Appearance Clear; Urine Blood Negative (Negative); Urine Color Yellow; Urine Ketones Negative (Negative); Urine Protein Negative (Negative); Urine Specific Gravity 1.009 (1.010-1.030); Urine Urobilinogen Negative (Negative)
[2018-01-26] MEDS ORDERED: Acetaminophen TAB* 325 MG PO PRN (04:55)
[2018-01-26] MEDS ORDERED: Polyethylene Glycol 3350* 17 GM PACKET PO PRN (04:56)
[2018-01-26] MEDS ORDERED: Albuterol HFA INHALER* 8 gm MDI INH PRN (04:56)
[2018-01-26] MEDS ORDERED: NS 0.9% 500 ML* 500 ML IV ONE ×3 (06:14→11:41)
[2018-01-26] MEDS: Insulin GLARGINE(*) 1 UNITS UNIT SUBCUT SCH (06:19)
[2018-01-26 06:26] LABS: EGFR Non-African American 30.8 (>60); Uric Acid 7.8 mg/dL (4.4-7.6)
[2018-01-26] MEDS ORDERED: Perflutren Lipid Microsphere* 3 ML VIAL ONE (07:40)
--- NOTE | 2018-01-26 07:55 | RAD ---
HISTORY: abd pain COMPARISONS: June 27, 2017 VIEWS: 1: frontal AP view of the chest at 2:20 AM FINDINGS: LINES AND TUBES: A left-sided AICD is noted. CARDIOMEDIASTINAL SILHOUETTE: The cardiomediastinal silhouette is mildly enlarged, stable. PLEURA: The costophrenic angles are sharp. No pleural abnormalities are noted. LUNG PARENCHYMA: There is prominence of the central pulmonary vasculature. ABDOMEN: The upper abdomen is clear. There is no subphrenic gas. BONES AND SOFT TISSUES: No bone or soft tissue abnormalities are noted. IMPRESSION: MILD CARDIOMEGALY WITH PULMONARY VASCULAR CONGESTION. R0
[2018-01-26] MEDS ORDERED: Norepinephrine 16MCG/ML IVPRE* 4,000 MCG/250 ML BAG IV ONE (08:47)
[2018-01-26] MEDS ORDERED: Digoxin TAB* 0.125 MG PO SCH (09:00)
[2018-01-26] MEDS ORDERED: Norepinephrine 16MCG/ML IVPRE* 4,000 MCG/250 ML BAG IV SCH (09:00)
--- NOTE | 2018-01-26 09:08 | RAD ---
HISTORY: Central line placement COMPARISONS: January 26, 2018 VIEWS: 1: frontal AP view of the chest at 8:47 AM FINDINGS: LINES AND TUBES: A left-sided AICD is noted. A right internal jugular venous catheter is noted with the tip overlying the superior vena cava. CARDIOMEDIASTINAL SILHOUETTE: The cardiac silhouette is mildly enlarged. The cardiomediastinal silhouette is otherwise normal for portable technique. PLEURA: The costophrenic angles are sharp. No pleural abnormalities are noted. There is no appreciable pneumothorax. LUNG PARENCHYMA: The lungs are clear. ABDOMEN: The upper abdomen is clear. There is no subphrenic gas. BONES AND SOFT TISSUES: No bone or soft tissue abnormalities are noted. IMPRESSION: LINES AND TUBES ABOVE. MILD CARDIOMEGALY.
[2018-01-26] MEDS: Cyanocobalamin TAB* 500 MCG PO SCH (10:35)
[2018-01-26] MEDS: Aspirin EC TAB* 81 MG TAB.EC PO SCH (10:35)
[2018-01-26] MEDS: Omeprazole CAP* 20 MG PO SCH ×2 (10:35→21:47)
[2018-01-26] MEDS: Docusate CAP* 100 MG PO SCH ×2 (10:35→21:47)
[2018-01-26] MEDS: Mometasone/Formoter 100/5 MDI INH SCH ×2 (10:39→20:09)
[2018-01-26] MEDS ORDERED: Morphine VIAL* 4 MG/ML VIAL (1 ml vial) IV ONE (11:15)
[2018-01-26] MEDS: Morphine VIAL* 4 MG/ML VIAL (1 ml vial) IV PRN ×3 (11:16→21:42)
[2018-01-26] MEDS ORDERED: Ondansetron INJ* 2 MG/ML VIAL IV PRN (11:26)
--- NOTE | 2018-01-26 11:53 | PN ---
Date of Service: 01/26/18 Critical Care Services: 57M with htn, hld, dm, cad, chronic systolic chf, afib on coumadin, s/p aicd, h/ o cva, h/o dvt, gout, ckd, copd presents with severe abdominal pain and hypotension. 01/26: TLC placed. Now on levophed. Vital Signs: Temp Pulse Resp BP SpO2 FiO2 97.9 F 57 22 97/57 96 01/26/18 07:32 01/26/18 11:00 01/26/18 11:23 01/26/18 10:51 01/26/18 11:00 Physical Exam: Gen - acutely ill heent - ncat, eomi, perrl neck - no jvd cv - s1/s2, +murmur lungs - cta, no wheeze abd - +tenderness in lower abdomen, +guarding ext - no edema neuro - non-focal Fluid Balance (Past 24 Hours): I= O= Net Intake & Output 01/24/18 01/25/18 01/26/18 01/27/18 06:59 06:59 06:59 06:59 Intake Total 1050 Output Total 150 300 Balance -150 750 Weight 79.4 kg Intake: IV Fluids 1000 Oral 50 Output: Urine 150 300 Other: Date of Last Bowel 01/26/18 Movement # Bowel Movements 1 Labs: Laboratory Results - last 24 hr 01/26/18 01/26/18 01/26/18 02:10 02:10 02:10 WBC 8.1 RBC 5.32 Hgb 15.6 Hct 46 MCV 86 MCH 29 MCHC 34 RDW 16 H Plt Count 104 L MPV 11.9 H Neut % (Auto) 78.5 Lymph % (Auto) 10.2 L [place] % (Auto) 8.6 H Eos % (Auto) 1.5 Baso % (Auto) 1.2 Absolute Neuts (auto) 6.3 Absolute Lymphs (auto) 0.8 L Absolute Monos (auto) 0.7 Absolute Eos (auto) 0.1 Absolute Basos (auto) 0.1 Absolute Nucleated RBC 0 Nucleated RBC % 0.2 INR (Anticoag Therapy) 3.36 H APTT 44.5 H VBG pH VBG pCO2 VBG pO2 VBG HCO3 VBG O2 Saturation VBG Base Excess Sodium 112 L* Potassium TNP Chloride 72 L Carbon Dioxide 26 Anion Gap 14 H BUN 71 H Creatinine 2.71 H Est GFR ( Amer) 29.5 Est GFR (Non-Af Amer) 24.4 BUN/Creatinine Ratio 26.2 H Glucose 498 H POC Glucose (mg/dL) Hemoglobin A1c Serum Osmolality Lactic Acid Uric Acid Calcium 9.2 Magnesium TNP Total Bilirubin 1.50 H AST TNP ALT 29 Alkaline Phosphatase 203 H Ammonia Troponin I 0.06 H* C-Reactive Protein 2.79 B-Natriuretic Peptide Total Protein 6.7 Albumin 3.7 Globulin 3.0 Albumin/Globulin Ratio 1.2 Amylase 62 Lipase 69 Cortisol Urine Color Urine Appearance Urine pH Ur Specific [place] Urine Protein Urine Ketones Urine Blood Urine Nitrate Urine Bilirubin Urine Urobilinogen Ur Leukocyte Esterase Ur Random Creatinine Ur Random Sodium Ur Random Urea Nitrogn Urine Glucose Digoxin Blood Type Antibody Screen 01/26/18 01/26/18 01/26/18 02:10 02:10 02:11 WBC RBC Hgb Hct MCV MCH MCHC RDW Plt Count MPV Neut % (Auto) Lymph % (Auto) [place] % (Auto) Eos % (Auto) Baso % (Auto) Absolute Neuts (auto) Absolute Lymphs (auto) Absolute Monos (auto) Absolute Eos (auto) Absolute Basos (auto) Absolute Nucleated RBC Nucleated RBC % INR (Anticoag Therapy) APTT VBG pH VBG pCO2 VBG pO2 VBG HCO3 VBG O2 Saturation VBG Base Excess Sodium Potassium Chloride Carbon Dioxide Anion Gap BUN Creatinine Est GFR ( Amer) Est GFR (Non-Af Amer) BUN/Creatinine Ratio Glucose POC Glucose (mg/dL) Hemoglobin A1c Serum Osmolality Lactic Acid 1.8 Uric Acid Calcium Magnesium Total Bilirubin AST ALT Alkaline Phosphatase Ammonia TNP Troponin I C-Reactive Protein B-Natriuretic Peptide 164 H Total Protein Albumin Globulin Albumin/Globulin Ratio Amylase Lipase Cortisol Urine Color Urine Appearance Urine pH Ur Specific [place] Urine Protein Urine Ketones Urine Blood Urine Nitrate Urine Bilirubin Urine Urobilinogen Ur Leukocyte Esterase Ur Random Creatinine Ur Random Sodium Ur Random Urea Nitrogn Urine Glucose Digoxin Blood Type A Positive Antibody Screen Negative 01/26/18 01/26/18 01/26/18 03:04 03:05 03:47 WBC RBC Hgb Hct MCV MCH MCHC RDW Plt Count MPV Neut % (Auto) Lymph % (Auto) [place] % (Auto) Eos % (Auto) Baso % (Auto) Absolute Neuts (auto) Absolute Lymphs (auto) Absolute Monos (auto) Absolute Eos (auto) Absolute Basos (auto) Absolute Nucleated RBC Nucleated RBC % INR (Anticoag Therapy) APTT VBG pH VBG pCO2 VBG pO2 VBG HCO3 VBG O2 Saturation VBG Base Excess Sodium Potassium 4.0 Chloride Carbon Dioxide Anion Gap BUN Creatinine Est GFR ( Amer) Est GFR (Non-Af Amer) BUN/Creatinine Ratio Glucose POC Glucose (mg/dL) Hemoglobin A1c Serum Osmolality Lactic Acid Uric Acid Calcium Magnesium 2.6 Total Bilirubin AST 32 ALT Alkaline Phosphatase Ammonia 47 Troponin I C-Reactive Protein B-Natriuretic Peptide Total Protein Albumin Globulin Albumin/Globulin Ratio Amylase Lipase Cortisol Urine Color Yellow Urine Appearance Clear Urine pH 7.0 Ur Specific [place] 1.009 L Urine Protein Negative Urine Ketones Negative Urine Blood Negative Urine Nitrate Negative Urine Bilirubin Negative Urine Urobilinogen Negative Ur Leukocyte Esterase Negative Ur Random Creatinine Ur Random Sodium Ur Random Urea Nitrogn Urine Glucose 3+(>=500 mg/dl) A Digoxin Blood Type Antibody Screen 01/26/18 01/26/18 01/26/18 03:50 05:35 05:36 WBC RBC Hgb Hct MCV MCH MCHC RDW Plt Count MPV Neut % (Auto) Lymph % (Auto) [place] % (Auto) Eos % (Auto) Baso % (Auto) Absolute Neuts (auto) Absolute Lymphs (auto) Absolute Monos (auto) Absolute Eos (auto) Absolute Basos (auto) Absolute Nucleated RBC Nucleated RBC % INR (Anticoag Therapy) APTT VBG pH 7.49 H VBG pCO2 39 L VBG pO2 20 L VBG HCO3 27.1 VBG O2 Saturation 30.2 L VBG Base Excess 5.9 H Sodium Potassium Chloride Carbon Dioxide Anion Gap BUN Creatinine Est GFR ( Amer) Est GFR (Non-Af Amer) BUN/Creatinine Ratio Glucose POC Glucose (mg/dL) 311 H Hemoglobin A1c Serum Osmolality Lactic Acid Uric Acid Calcium Magnesium Total Bilirubin AST ALT Alkaline Phosphatase Ammonia Troponin I C-Reactive Protein B-Natriuretic Peptide Total Protein Albumin Globulin Albumin/Globulin Ratio Amylase Lipase Cortisol Urine Color Urine Appearance Urine pH Ur Specific [place] Urine Protein Urine Ketones Urine Blood Urine Nitrate Urine Bilirubin Urine Urobilinogen Ur Leukocyte Esterase Ur Random Creatinine 68.27 Ur Random Sodium 20 Ur Random Urea Nitrogn 420 Urine Glucose Digoxin Blood Type Antibody Screen 01/26/18 01/26/18 01/26/18 05:48 05:48 05:48 WBC RBC Hgb Hct MCV MCH MCHC RDW Plt Count MPV Neut % (Auto) Lymph % (Auto) [place] % (Auto) Eos % (Auto) Baso % (Auto) Absolute Neuts (auto) Absolute Lymphs (auto) Absolute Monos (auto) Absolute Eos (auto) Absolute Basos (auto) Absolute Nucleated RBC Nucleated RBC % INR (Anticoag Therapy) APTT VBG pH VBG pCO2 VBG pO2 VBG HCO3 VBG O2 Saturation VBG Base Excess Sodium 119 L* Potassium 3.5 Chloride 82 L Carbon Dioxide 26 Anion Gap 11 BUN 64 H Creatinine 2.21 H Est GFR ( Amer) 37.3 Est GFR (Non-Af Amer) 30.8 BUN/Creatinine Ratio 29.0 H Glucose 293 H POC Glucose (mg/dL) Hemoglobin A1c 12.8 H Serum Osmolality 283 Lactic Acid Uric Acid 7.8 H Calcium 8.8 Magnesium Total Bilirubin AST ALT Alkaline Phosphatase Ammonia Troponin I C-Reactive Protein B-Natriuretic Peptide Total Protein Albumin Globulin Albumin/Globulin Ratio Amylase Lipase Cortisol 16.55 Urine Color Urine Appearance Urine pH Ur Specific [place] Urine Protein Urine Ketones Urine Blood Urine Nitrate Urine Bilirubin Urine Urobilinogen Ur Leukocyte Esterase Ur Random Creatinine Ur Random Sodium Ur Random Urea Nitrogn Urine Glucose Digoxin 1.0 Blood Type Antibody Screen 01/26/18 09:25 WBC RBC Hgb Hct MCV MCH MCHC RDW Plt Count MPV Neut % (Auto) Lymph % (Auto) [place] % (Auto) Eos % (Auto) Baso % (Auto) Absolute Neuts (auto) Absolute Lymphs (auto) Absolute Monos (auto) Absolute Eos (auto) Absolute Basos (auto) Absolute Nucleated RBC Nucleated RBC % INR (Anticoag Therapy) APTT VBG pH 7.40 VBG pCO2 48 VBG pO2 44 VBG HCO3 27.2 VBG O2 Saturation 78.0 VBG Base Excess 3.8 Sodium Potassium Chloride Carbon Dioxide Anion Gap BUN Creatinine Est GFR ( Amer) Est GFR (Non-Af Amer) BUN/Creatinine Ratio Glucose POC Glucose (mg/dL) Hemoglobin A1c Serum Osmolality Lactic Acid Uric Acid Calcium Magnesium Total Bilirubin AST ALT Alkaline Phosphatase Ammonia Troponin I C-Reactive Protein B-Natriuretic Peptide Total Protein Albumin Globulin Albumin/Globulin Ratio Amylase Lipase Cortisol Urine Color Urine Appearance Urine pH Ur Specific [place] Urine Protein Urine Ketones Urine Blood Urine Nitrate Urine Bilirubin Urine Urobilinogen Ur Leukocyte Esterase Ur Random Creatinine Ur Random Sodium Ur Random Urea Nitrogn Urine Glucose Digoxin Blood Type Antibody Screen Studies: CT abd/pel 01/26 IMPRESSION: 1. Resolution of right pleural effusion since 06/15/2017. There is persistent bibasilar fibro-atelectatic change and calcified granulomata and little change with lobular noncalcified left lower lobe nodule. 2. Borderline splenomegaly which is similar. 3. Bilateral adrenal nodules which appear to be similar. 4 small fat filled left inguinal hernia. CXR 01/26 IMPRESSION: LINES AND TUBES ABOVE. MILD CARDIOMEGALY. Impression: 57M with htn, hld, dm, cad, chronic systolic chf, afib on coumadin, s/p aicd, h/ o cva, h/o dvt, gout, ckd, copd presents with severe abdominal pain and hypotension. Plan: Neuro - pain control CV - htn, hld, cad, chf, afib, hypotension - appears dry on exam - cautious iv hydration - tte pending - c/w asa/statin - levophed for bp support - monitor dig level Pulm - copd - no wheezing on exam - nebulizers prn - c/w dulera ID - afebrile - cxr/ua neg - normal wbc - no evidence of infection GI - abdominal pain - ct without obvious pathology - lactate/lipase normal - unclear etiology of pain - will consult surgery Renal - acute on chronic renal failure, hyponatremia - FEurea < 35% likely pre-renal - iv hydration - monitor lytes - serial bmp Heme - monitor cbc Endo - DM - a1c 12 - check fs, niss, lantus Lines - RIJ TLC PPx - gi/dvt Full Code Critical Care Time: 70 mins
[2018-01-26 12:42] LABS: ABS Basophils 0.1 10^3/ul (0-0.2); ABS Eosinophils 0.2 10^3/ul (0-0.6); ABS Lymphocytes 1.1 10^3/ul (1.0-4.8); ABS Monocytes 1.1 10^3/ul (0-0.8); ABS Neutrophils 8.4 10^3/ul (1.5-7.7); ABS Nucleated RBC 0 10^3/ul; Eosinophil % 1.9 % (0-6); Hematocrit 44 % (42-52); Hemoglobin 15.1 g/dl (14.0-18.0); Lymphocyte % 10.3 % (25-47); Mean Corpuscular HGB Conc 35 g/dl (31-36); Mean Corpuscular Hemoglobin 30 pg (27-31); Mean Corpuscular Volume 86 fL (80-94); Nucleated Red Blood Cells % 0.1; Platelet Count 118 10^3/ul (150-450); Red Blood Count 5.11 10^6/ul (4.00-5.40); Red Cell Distribution Width 17 % (10.5-15); White Blood Count 10.9 10^3/ul (3.5-10.8)
[2018-01-26 12:52] LABS: INR 3.32 (0.77-1.02)
[2018-01-26 13:01] LABS: EGFR Non-African American 37.4 (>60)
--- NOTE | 2018-01-26 13:13 | OP ---
Operative Report - Blank - Operative Report Date of Operation: 01/26/18 Note: Central Venous Catheter (CVC, Central Line) Placement Date: 01/26/18 Time: 8:00am Indication: Hemodynamic monitoring/Intravenous access Attending: Ju Betancourt time-out was completed verifying correct patient, procedure, site, positioning , and special equipment if applicable. The patient was placed in a dependent position appropriate for central line placement based on the vein to be cannulated. The patients right neck was prepped and draped in sterile fashion. 1% Lidocaine was used to anesthetize the surrounding skin area. A triple lumen 7 -[place] catheter was introduced into the the internal jugular femoral vein using the Seldinger technique and under ultrasound guidance. The catheter was threaded smoothly over the guide wire and appropriate blood return was obtained. Each lumen of the catheter was evacuated of air and flushed with sterile saline. The catheter was then sutured in place to the skin and a sterile dressing applied. Perfusion to the extremity distal to the point of catheter insertion was checked and found to be adequate. Estimated Blood Loss: none The patient tolerated the procedure well and there were no complications.
[2018-01-26] MEDS ORDERED: NS 0.9% 1000 ML* 1,000 ML IV SCH (13:15)
--- NOTE | 2018-01-26 13:40 | HP ---
HISTORY AND PHYSICAL: DATE OF ADMISSION: 01/26/18 ADMITTING PROVIDER: Garrison Heath MD PRIMARY CARE PROVIDER: Dr. Rangel. OUTPATIENT DIRECTOR OF SPEECH PATHOLOGY: Dr. Brar and Dr. Hernandez of [facility]. CHIEF COMPLAINT: Weakness; abdominal pain; nausea, worse shortness of breath than usual; loss of weight. 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 For the last 2 weeks or so, he has had diffuse abdominal pain that has been achy in nature and progressive. He has also lost 16 pounds over that time period and has noticed increased frequency of urination. He has also not been able to take any of his Lantus for the last 2 weeks because he states he cannot afford it and relies almost exclusively on samples given to him by his doctors. He usually, when available, has 20 units of a long-acting formulation but he is not sure which . He does not know what type. He does not know his last A1c. Here in our system in June 2017, was 7.5%. Upon evaluation in the [facility] Emergency Room his blood pressures were in the 70s/40s and initially difficult to obtain. He was given 2 L of normal saline, and at this point in time with BPs have improved to between high 90s to low 100s. He was found to have a blood glucose of 498, anion gap of 14, a creatinine of 2.71 up from last known 1.3 in June, a BUN of 71, and a sodium of 112, (corrected for the hyperglycemia is between 118 and 122), troponin of 0.06 and BNP of 164. In ED he was given 8U of regular insulin and referred to hospitalist service for admission. He had undergone a CT abdomen and pelvis, which demonstrated some chronic findings such as splenomegaly and bilateral adrenal nodules and resolution of his previous pleural effusion, and little change to the lobular noncalcified left lower lobe nodule. He was not symptomatic with any chest pain. He does occasionally get dizzy. Denies any fevers or chills. Blood sugar yesterday he reports was 375. He has been transferred to the ICU given his severe hyponatremia, elevated anion gap with possible need for an insulin drip. PAST MEDICAL HISTORY: Severe cardiomyopathy, ejection fraction less than 20%, status post AICD, [id number]-[id number]-slednn mitral valve regurgitation, severe tricuspid valve regurgitation, paroxysmal atrial fibrillation, on Coumadin and digoxin, hypertension, hyperlipidemia, CAD, PAD, CVA x2, gout, chronic kidney disease stage 3, insulin-dependent diabetes mellitus, COPD, current smoker, lung nodule, left foot ischemia, status post acute intervention. MEDICATIONS: The patient notably cannot/won't reconcile his medications at this time. He denies any recent changes by Dr. Rangel, who he saw about 1 month ago. In our system, we have and some of these have been cross-checked with the external pharmacy databases, include: 1. Warfarin 7.5 mg daily. 2. Torsemide 40 mg daily. 3. Spironolactone 25 mg every other day. 4. Potassium chloride 20 mEq daily. 5. Polyethylene glycol 17 g p.o. daily p.r.n. 6. Prilosec 20 mg p.o. b.i.d. 7. Metoprolol tartrate 50 mg p.o. b.i.d. 8. Metolazone 5 mg p.o. daily. 9. Magnesium oxide 250 mg p.o. daily. 10. Lisinopril 5 mg daily. 11. Advair 1 puff inhaled b.i.d. 12. Docusate 100 mg p.o. b.i.d. 13. Digoxin 0.125 mg p.o. daily. 14. Vitamin B12 of 1000 mcg p.o. daily. 15. Atorvastatin 80 mg p.o. daily. 16. Aspirin 81 mg daily. 17. Allopurinol 100 mg p.o. b.i.d. 18. Albuterol 1 to 2 puffs inhaled q.2 to 6 hours p.r.n. 19. long acting insulin(he is not sure which) 20U nightly (intermittently and not recently) ALLERGIES: No known drug allergies. FAMILY HISTORY: Mother had diabetes; she is . Father of pneumonia. SOCIAL HISTORY: The patient smokes half a pack a day, started smoking at age 16 , quit for 2 years, up to 2 packs per day. Does not drink alcohol. 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 He is . Rosalba, his , is his healthcare proxy. REVIEW OF SYSTEMS: A complete 14-point review of systems is negative except as per HPI. PHYSICAL EXAMINATION GENERAL APPEARANCE: In no acute distress. VITAL SIGNS: Currently, 98.5, pulse 72, respiratory rate 21, satting between 80 % and 100% on room air, blood pressure 97/53. He is actually on 2 L in the room now. HEENT: Normocephalic, atraumatic. Pupils are equal, round, and reactive to light. Dry mucous membranes. NECK: No cervical lymphadenopathy. LUNGS: Clear to auscultation bilaterally with no wheezing, rales, or rhonchi. CARDIOVASCULAR: Regular rate and rhythm. No murmurs, rubs, or gallops. ABDOMEN: Soft, nondistended. Some moderate tenderness in the epigastric region to palpation. No rebound, no guarding. No Garcia's sign. EXTREMITIES: Warm and well perfused. No peripheral edema. SKIN: He has erythematous papules (that he chronically itches for "most of his life" in his upper thorax. NEUROLOGIC: Cranial nerves II through XII intact. Moving all extremities. DIAGNOSTIC STUDIES/LAB DATA: White count 8.1, hemoglobin 15.6, hematocrit 46, platelets 104. INR is 3.36, MCV 86. VBG: pH of 7.49, pCO2 of 39, pO2 of 20, bicarb of 27.1. Sodium 112, corrected for hyperglycemia is 118 vs. 122. Potassium 4.0, chloride 72, carbon dioxide 26, anion gap 14, BUN 71, creatinine 2.71, glucose 498, lactic acid 1.8. Magnesium 2.6. Total bili 1.50, alk phos 203, CRP 2.79, BNP 164, lipase 69, AST 32, ALT 29. Urinalysis: Specific gravity 1.009, low; urine glucose 3+; negative urine ketones. Imaging: CT abdomen and pelvis with: 1. Resolution of right pleural effusion since 06/15/17. There is specifically basilar fibrotic changes and calcified granulomata and a little change with lobular and noncalcified left lower lobe nodule. 2. Borderline splenomegaly, which is similar. 3. Bilateral adrenal nodules, which appear to be similar. 4. Small fat-filled left inguinal hernia. Chest x-ray: Official read pending, but no pleural effusions or opacities noted. He has ICD in his left thorax. Sharp costophrenic borders. EKG demonstrates atrial fibrillation, HR 44, left bundle-branch block(unchanged from prior). ASSESSMENT AND PLAN: Jovanni Cam is a 57-year-old male with past medical history of severe cardiomyopathy with uqpujfmr-nn-[id number] mitral valve regurgitation and severe tricuspid valve regurgitation, paroxysmal atrial fibrillation, presenting now with insulin-dependent diabetes mellitus with noncompliance, secondary to not being able to afford his medications, his insulin, and currently smokes. He is presenting with abdominal pain, nausea, vomiting, hyperglycemia, and severe hyponatremia, though partially pseudohyponatremia given his elevated blood glucose to almost 500. He is being admitted to observation status to intensive care unit. We are going to repeat a BNP now to see if his anion gap (initially 14) has closed at all and get a repeat sodium after he got 2 L NS in the ED. I am going to hold off on the insulin drip until this repeat BMP is obtained. For now I will restart his Lantus 20 units now. If he does not get put on an insulin drip, we will get blood glucose every 4 hours and put him on sliding scale. We will get a social work consult to help him see if there is any resource to get his insulin. His CT abdomen does not point toward a cause of pain, he has normal lactic acid. I am attributing his abdominal pain potentially to DKA and worsened by hypotension but will monitor. For his atrial fibrillation, his INR is elevated to 3.4. We will hold his Coumadin for now, repeat tomorrow. Continue his digoxin adding on a level from the ED labs if possible. Given his hypotension in the setting of overdiuresis in the setting of uncontrolled diabetes mellitus and polyuria, I am holding his 5 home blood pressure medications including torsemide, metolazone, spironolactone, metoprolol, and lisinopril. I am going to continue his aspirin 81 mg daily. I will hold his allopurinol in the setting of his acute kidney injury. Continue his Advair and his albuterol p.r.n. He has lost 16 pounds, below his dry weight, in the setting of likely increased hyperglycemic-driven diuresis. Last A1c was 7.5% and we will add one here, try to obtain records from Dr. Rangel's office if possible. Per his report, he has been put on a yearly schedule by his [facility], last couple of months ago, he is not on any active transplant list. He will be n.p.o. for now and told to decide on whether or not he needs to be put on insulin drip, otherwise carbohydrate consistent diet and heart healthy. For additional hyponatremia workup, adding on cortisol, serum osmolalities, urine sodium, urine urea, urine creatinine. To calculate FEUrea for the acute kidney injury, which is likely prerenal given his BUN and creatinine ratio with clinical history. Suspected etiology of his hyponatremia is hypovolemia. Maintain telemetry status in the ICU for stabilization of his sodium levels, again, which again needs to be corrected for hyperglycemia. He is a full code. His medical surrogate is his , Rosalba Cam [id number]/[facility] #: [id number] MTDD
--- NOTE | 2018-01-26 16:47 | ECHO ---
Patient: STEVIE MEYER [facility] Rec#: [id number] : 1960 Date: 01/26/2018 Age: 57y Height: 180.34 cm / 71.0 in Weight: 79.38 kg / 175.0 lbs Sex: M BSA: 1.99 Room#: [facility]-7 Admit Date#: 01/25/2018 Type: Inpatient Referring: Garrison Heath Reading: Stevie Lopez DO Courier: Samira Niño RDCS CC: Michael Brar CC: Jamari Rangel MD Transthoracic Echocardiogram Indication: CHF//Hypotension BP: 78/46 HR: 60 Rhythm: Paced Findings History: DM,cardiomyopathy,s/p AICD,CHF, prior cardiac arrest,COPD,former ETOH abuse. Technical Comments: The study is technically limited due to the patient's history of COPD. Definity used to enhance images. Completed at 0859. Left Ventricle: The left ventricular chamber size is severely dilated. There is severely decreased left ventricular systolic function. The estimated ejection fraction is less than 20%. The assessment of diastolic function is non-diagnostic. The basal inferoseptal, mid inferolateral, and mid inferior wall segments are hypokinetic (score 2). The basal anterolateral, mid anterolateral, mid inferoseptal, apical septal, and apical lateral wall segments are akinetic (score 3). The apical anterior wall segment is dyskinetic (score 4). There is scarring/thinningof the basal anteroseptal, basal anterior, and mid anteroseptalwall segments (score 5). Overall wallmotion score index is 3.00 Left Atrium: The left atrium is severely dilated. Right Ventricle: The right ventricle is moderate to severely dilated. The right ventricular global systolic function is moderately reduced. A pacemaker wire is visualized in the right ventricle. Right Atrium: The right atrium is moderately dilated. A pacemaker wire is visualized in the right atrium. Aortic Valve: The aortic valve is trileaflet. The aortic valve leaflets are mildly thickened. Systolic excursion of the aortic valve cusps is reduced. There is no evidence of aortic regurgitation. There is mild to moderate aortic stenosis., low gradient The highest aortic valve velocity was obtained with the standard probe from the A5C view. Mitral Valve: The mitral valve leaflets are mildly thickened. There is moderate mitral regurgitation. Tricuspid Valve: The tricuspid valve leaflets are normal. There is mild to moderate tricuspid regurgitation. There is evidence of moderate pulmonary hypertension. There is no tricuspid stenosis. Pulmonic Valve: The pulmonic valve appears normal. There is no evidence of pulmonic regurgitation. There is no pulmonic stenosis. Pericardium: There is no significant pericardial effusion. Aorta: There is no dilatation of the ascending aorta. The aortic arch is not well visualized. There is no dilation of the aortic root. Pulmonary Artery: The main pulmonary artery is not well visualized. Contrast: Definity was used to optimize study. A total of 4 ml used. Intravenous contrast was used to enhance endocardial border definition. Conclusions The left ventricular chamber size is severely dilated. There is severely decreased left ventricular systolic function. The estimated ejection fraction is less than 20%. The left atrium is severely dilated. The right ventricle is moderate to severely dilated. The right ventricular global systolic function is moderately reduced. A pacemaker/icd wire is visualized in the right ventricle. There is mild to moderate aortic stenosis, low gradient There is moderate secondary/functional mitral regurgitation that may be underestimated in severity There is mild to moderate tricuspid regurgitation. There is evidence of moderate pulmonary hypertension. Definity was used to optimize study. Compared to prior study from 05/2017, the degree of TR is less and degree of RV dysfunction is worse. Measurements Name Value Normal Range RVIDd (AP) 2D 3.9 cm (0.9 - 2.6) RVDdMajor (2D) 5.2 cm (2.2 - 4.4) RAd ISD 4CH 6.6 cm (3.4 - 4.9) RA (A4C)W 4.4 cm (2.9 - 4.6) IVSd (2D) 0.5 cm (0.6 - 1) LVPWd (2D) 1 cm (0.6 - 1) LVIDd (2D) 7.3 cm (3.6 - 5.4) LVIDs (2D) 6.9 cm - LV FS (2D) 6 % (25 - 45) Aortic Annulus 2 cm (1.4 - 2.6) Ao root diameter (2D) 2.8 cm (2.1 - 3.5) Ascending Ao 2.6 cm (2.1 - 3.4) LA dimension (AP) 2D 5.9 cm (2.3 - 3.8) LAd ISD 4CH 7.7 cm (2.9 - 5.3) LA ISD 4CH W 6.2 cm (2.5 - 4.5) Name Value Normal Range LA ESV SP 4CH (A/L) 162 ml - LA ESV SP 2CH (A/L) 85 ml - LA ESV BP (A/L) 124 ml - LA ESV BP (A/L) index 62.36 ml/m2 - LA ESV SP 4CH (MOD) 158 ml - LA ESV SP 2CH (MOD) 83 ml - Name Value Normal Range MV E-wave Vmax 1.2 m/sec - MV deceleration time 189 msec - MV A-wave Vmax 0.3 m/sec - MV E:A ratio 4.11 ratio - LV septal e' Vmax 0.07 m/sec - LV lateral e' Vmax 0.13 m/sec - LV E:e' septal ratio 17.14 ratio - LV E:e' lateral ratio 9.23 ratio - Name Value Normal Range AV Vmax 2.5 m/sec - AV VTI 50.6 cm - AV peak gradient 25.43 mmHg - AV mean gradient 13.25 mmHg - LVOT diameter 2 cm - LVOT Vmax 1 m/sec - LVOT VTI 17.7 cm - LVOT peak gradient 3.94 mmHg - LVOT mean gradient 2.05 mmHg - GREG (continuity Vmax) 1.3 cm2 - GREG (continuity VTI) 1.1 cm2 - Name Value Normal Range MR Vmax 4.2 m/sec - MR VTI 130 cm - Name Value Normal Range TR Vmax 3.3 m/sec - TR peak gradient 44 mmHg - RAP 8 mmHg - RVSP 52 mmHg - IVC diameter 2.1 cm - Name Value Normal Range PV Vmax 0.9 m/sec - PV peak gradient 3.17 mmHg - Wallmotion BAS Scarring/Thinning BA Scarring/Thinning BAL Akinetic SAVANNA Normal BI Normal BIS Hypokinetic MAS Scarring/Thinning MA Not Seen MAL Akinetic MIL Hypokinetic RI Hypokinetic MIS Akinetic Akinetic AA Dyskinetic AL Akinetic AI Not Seen APEX Akinetic
[2018-01-26] MEDS ORDERED: Dextrose 50% Syringe 50 ML* 25 GM/50 ML SYRINGE IV PUSH PRN (16:51)
[2018-01-26] MEDS: Atorvastatin* 80 MG TAB PO SCH (16:53)
--- NOTE | 2018-01-26 17:55 | RAD ---
INDICATION: Abdominal pain. COMPARISON: Correlation is made with a prior CT of the abdomen and pelvis from January 26, 2015. TECHNIQUE: Frontal supine films of the abdomen were obtained. FINDINGS: The small bowel and colon appear nondistended. No significant abnormal calcifications are seen. A vascular stent is visualized in the region of the left common iliac artery. IMPRESSION: NO EVIDENCE FOR OBSTRUCTION.
[2018-01-26 18:16] LABS: EGFR Non-African American 41.5 (>60)
--- NOTE | 2018-01-26 21:16 | CONS ---
CC: Dr. Marshall, [facility] * SURGICAL CONSULTATION NOTE: DATE OF CONSULT: 01/26/18. LOCATION: Intensive care unit, room 7, at [facility]. ATTENDING PHYSICIAN: Dr. Rajeev Marshall. CHIEF COMPLAINT: Abdominal pain. HISTORY OF PRESENT ILLNESS: The patient is a 57-year-old male with multiple comorbidities of hypertension; hyperlipidemia; uncontrolled diabetes mellitus; coronary artery disease; chronic systolic congestive heart failure; atrial fibrillation, on Coumadin, he does have an implanted defibrillator; he has a history of COPD and presented to the [facility] Emergency Room with severe abdominal pain over the past 10 days. He was noted to be hypotensive and is currently on Levophed. Dr. Ant Dodd, the range manager, asked for a surgical consultation regarding the abdominal pain. The patient did undergo a CAT scan of the abdomen and pelvis, but it was without contrast due to the elevated creatinine of 2.2. There were no significant findings on the CAT scan other than a fat-filled left inguinal hernia. The patient has lost 15 to 20 pounds over the last several weeks; he denies any constipation or melena; he states that he has not been eating well at home. Dr. Dodd reported that he noted guarding on his abdominal exam this morning. PHYSICAL EXAM: Physical exam is limited to the abdomen. Hypoactive bowel sounds, no surgical scars, soft, nondistended; mild tenderness on deep palpation in the infraumbilical and suprapubic region. No guarding. No rebound tenderness. No obvious masses or organomegaly. No obvious bulging to suggest incarceration of a left inguinal hernia. PLAN: I discussed the findings with Dr. Dodd and suggested a plain abdominal x- ray to rule out any obstructive pattern and he agreed with that plan. Dr. Dodd stated that the patient would not be a surgical candidate as his ejection fraction is less than 20%. Also currently, his INR is elevated at 3.3, sodium is low at 112, and glucose is elevated at 498. I updated Dr. Marshall. TIME SPENT: Thirty minutes with greater than 50% in [id number] patient examination and history taking. TANA CUENCA, G[employer] LINE SERVICER [id number]/[facility] #: [id number] CHRIS
[2018-01-26] MEDS: Insulin LISPRO* 1 UNITS UNIT SUBCUT SCH (21:41)
[2018-01-27] MEDS: Insulin GLARGINE(*) 1 UNITS UNIT SUBCUT SCH (05:20)
[2018-01-27 05:44] LABS: Hematocrit 43 % (42-52); Hemoglobin 14.5 g/dl (14.0-18.0); Mean Corpuscular HGB Conc 34 g/dl (31-36); Mean Corpuscular Hemoglobin 29 pg (27-31); Mean Corpuscular Volume 87 fL (80-94); Red Blood Count 4.94 10^6/ul (4.00-5.40); Red Cell Distribution Width 16 % (10.5-15); White Blood Count 9.8 10^3/ul (3.5-10.8)
[2018-01-27 05:49] LABS: INR 3.38 (0.77-1.02)
[2018-01-27 06:02] LABS: EGFR Non-African American 56.9 (>60)
[2018-01-27 06:16] LABS: ABS Basophils 0.1 10^3/ul (0-0.2); ABS Eosinophils 0.2 10^3/ul (0-0.6); ABS Lymphocytes 0.9 10^3/ul (1.0-4.8); ABS Monocytes 0.7 10^3/ul (0-0.8); ABS Neutrophils 7.8 10^3/ul (1.5-7.7); ABS Nucleated RBC 0 10^3/ul; Eosinophil % 2.2 % (0-6); Lymphocyte % 9.6 % (25-47); Mean Platelet Volume 10.6 um3 (7.4-10.4); Nucleated Red Blood Cells % 0.1; Platelet Count 99 10^3/ul (150-450)
[2018-01-27] MEDS: Cyanocobalamin TAB* 500 MCG PO SCH (08:28)
[2018-01-27] MEDS: Omeprazole CAP* 20 MG PO SCH ×2 (08:28→21:14)
[2018-01-27] MEDS: Docusate CAP* 100 MG PO SCH ×2 (08:29→21:14)
[2018-01-27] MEDS: Aspirin EC TAB* 81 MG TAB.EC PO SCH (08:29)
[2018-01-27] MEDS: Insulin LISPRO* 1 UNITS UNIT SUBCUT SCH ×4 (08:39→21:14)
[2018-01-27] MEDS ORDERED: NS 0.9% 1000 ML* 1,000 ML IV SCH (09:00)
--- NOTE | 2018-01-27 09:04 | PN ---
Date of Service: 01/27/18 Critical Care Services: 57M with htn, hld, dm, cad, chronic systolic chf, afib on coumadin, s/p aicd, h/ o cva, h/o dvt, gout, ckd, copd presents with severe abdominal pain and hypotension. 01/26: TLC placed. Now on levophed. 01/27: abdominal pain improved. hyponatremia improving. weaning levophed. Vital Signs: Temp Pulse Resp BP SpO2 FiO2 98.2 F 69 18 91/75 100 01/27/18 08:00 01/27/18 08:45 01/27/18 08:52 01/27/18 08:45 01/27/18 08:45 Physical Exam: Gen - nad heent - ncat, eomi, perrl neck - no jvd cv - s1/s2, +murmur lungs - cta, no wheeze abd - soft, minimal tenderness ext - no edema neuro - non-focal Fluid Balance (Past 24 Hours): I= O= Net Intake & Output 01/25/18 01/26/18 01/27/18 01/28/18 06:59 06:59 06:59 06:59 Intake Total 4665.4 Output Total 150 3350 Balance -150 1315.4 Weight 79.4 kg 78.3 kg Intake: IV Fluids 3463 NS (0.9%) 2463 Medicated IV 152.4 CC - Norepinephrine/ 152.4 Levophed Oral 1050 Output: Urine 150 3350 Moore 0 Other: Date of Last Bowel 01/26/18 Movement # Bowel Movements 1 Labs: Laboratory Results - last 24 hr 01/26/18 01/26/18 01/26/18 05:48 09:25 12:30 WBC RBC Hgb Hct MCV MCH MCHC RDW Plt Count MPV Neut % (Auto) Lymph % (Auto) [place] % (Auto) Eos % (Auto) Baso % (Auto) Absolute Neuts (auto) Absolute Lymphs (auto) Absolute Monos (auto) Absolute Eos (auto) Absolute Basos (auto) Absolute Nucleated RBC Nucleated RBC % INR (Anticoag Therapy) 3.32 H APTT 48.6 H VBG pH 7.40 VBG pCO2 48 VBG pO2 44 VBG HCO3 27.2 VBG O2 Saturation 78.0 VBG Base Excess 3.8 Sodium Potassium Chloride Carbon Dioxide Anion Gap BUN Creatinine Est GFR ( Amer) Est GFR (Non-Af Amer) BUN/Creatinine Ratio Glucose POC Glucose (mg/dL) Hemoglobin A1c 12.8 H Lactic Acid Calcium Phosphorus Magnesium Troponin I Digoxin 01/26/18 01/26/18 01/26/18 12:30 12:30 12:30 WBC 10.9 H RBC 5.11 Hgb 15.1 Hct 44 MCV 86 MCH 30 MCHC 35 RDW 17 H Plt Count 118 L MPV 11.0 H Neut % (Auto) 77.2 Lymph % (Auto) 10.3 L [place] % (Auto) 9.7 H Eos % (Auto) 1.9 Baso % (Auto) 0.9 Absolute Neuts (auto) 8.4 H Absolute Lymphs (auto) 1.1 Absolute Monos (auto) 1.1 H Absolute Eos (auto) 0.2 Absolute Basos (auto) 0.1 Absolute Nucleated RBC 0 Nucleated RBC % 0.1 INR (Anticoag Therapy) APTT VBG pH VBG pCO2 VBG pO2 VBG HCO3 VBG O2 Saturation VBG Base Excess Sodium 120 L Potassium 3.8 Chloride 87 L Carbon Dioxide 27 Anion Gap 6 BUN 59 H Creatinine 1.87 H Est GFR ( Amer) 45.3 Est GFR (Non-Af Amer) 37.4 BUN/Creatinine Ratio 31.6 H Glucose 292 H POC Glucose (mg/dL) Hemoglobin A1c Lactic Acid 1.2 Calcium 9.0 Phosphorus 3.5 Magnesium 2.6 Troponin I 0.06 H* Digoxin 01/26/18 01/26/18 01/27/18 17:51 21:22 05:30 WBC RBC Hgb Hct MCV MCH MCHC RDW Plt Count MPV Neut % (Auto) Lymph % (Auto) [place] % (Auto) Eos % (Auto) Baso % (Auto) Absolute Neuts (auto) Absolute Lymphs (auto) Absolute Monos (auto) Absolute Eos (auto) Absolute Basos (auto) Absolute Nucleated RBC Nucleated RBC % INR (Anticoag Therapy) APTT VBG pH VBG pCO2 VBG pO2 VBG HCO3 VBG O2 Saturation VBG Base Excess Sodium 122 L 129 L Potassium 4.4 3.9 Chloride 91 L 95 L Carbon Dioxide 26 30 Anion Gap 5 4 BUN 50 H 37 H Creatinine 1.71 H 1.30 H Est GFR ( Amer) 50.2 68.8 Est GFR (Non-Af Amer) 41.5 56.9 BUN/Creatinine Ratio 29.2 H 28.5 H Glucose 293 H 152 H POC Glucose (mg/dL) 301 H Hemoglobin A1c Lactic Acid Calcium 8.9 9.4 Phosphorus Magnesium 2.5 Troponin I Digoxin 1.2 01/27/18 01/27/18 01/27/18 05:30 05:30 08:34 WBC 9.8 RBC 4.94 Hgb 14.5 Hct 43 MCV 87 MCH 29 MCHC 34 RDW 16 H Plt Count 99 L MPV 10.6 H Neut % (Auto) 80.4 Lymph % (Auto) 9.6 L [place] % (Auto) 7.0 Eos % (Auto) 2.2 Baso % (Auto) 0.8 Absolute Neuts (auto) 7.8 H Absolute Lymphs (auto) 0.9 L Absolute Monos (auto) 0.7 Absolute Eos (auto) 0.2 Absolute Basos (auto) 0.1 Absolute Nucleated RBC 0 Nucleated RBC % 0.1 INR (Anticoag Therapy) 3.38 H APTT VBG pH VBG pCO2 VBG pO2 VBG HCO3 VBG O2 Saturation VBG Base Excess Sodium Potassium Chloride Carbon Dioxide Anion Gap BUN Creatinine Est GFR ( Amer) Est GFR (Non-Af Amer) BUN/Creatinine Ratio Glucose POC Glucose (mg/dL) 134 H Hemoglobin A1c Lactic Acid Calcium Phosphorus Magnesium Troponin I Digoxin Studies: CT abd/pel 01/26 IMPRESSION: 1. Resolution of right pleural effusion since 06/15/2017. There is persistent bibasilar fibro-atelectatic change and calcified granulomata and little change with lobular noncalcified left lower lobe nodule. 2. Borderline splenomegaly which is similar. 3. Bilateral adrenal nodules which appear to be similar. 4 small fat filled left inguinal hernia. CXR 01/26 IMPRESSION: LINES AND TUBES ABOVE. MILD CARDIOMEGALY. Abd Xray 01/26 IMPRESSION: NO EVIDENCE FOR OBSTRUCTION. TTE 01/26 Conclusions The left ventricular chamber size is severely dilated. There is severely decreased left ventricular systolic function. The estimated ejection fraction is less than 20%. The left atrium is severely dilated. The right ventricle is moderate to severely dilated. The right ventricular global systolic function is moderately reduced. A pacemaker/icd wire is visualized in the right ventricle. There is mild to moderate aortic stenosis, low gradient There is moderate secondary/functional mitral regurgitation that may be underestimated in severity There is mild to moderate tricuspid regurgitation. There is evidence of moderate pulmonary hypertension. Definity was used to optimize study. Compared to prior study from 05/2017, the degree of TR is less and degree of RV dysfunction is worse. Impression: 57M with htn, hld, dm, cad, chronic systolic chf, afib on coumadin, s/p aicd, h/ o cva, h/o dvt, gout, ckd, copd presents with severe abdominal pain and hypotension. Plan: Neuro - pain control CV - htn, hld, cad, chf, afib, hypotension - appears dry on exam - cautious iv hydration - tte with severe LV and RV dysfunction - c/w asa/statin - levophed for bp support - monitor dig level Pulm - copd - no wheezing on exam - nebulizers prn - c/w dulera ID - afebrile - cxr/ua neg - normal wbc - no evidence of infection GI - abdominal pain - improving - suspect poor perfusion to gut 2/2 hypotension - ct without obvious pathology - lactate/lipase normal - surgery evaluation appreciated Renal - acute on chronic renal failure, hyponatremia - renal failure and hyponatremia improving - monitor bmp Heme - monitor cbc Endo - DM - a1c 12 - check fs, niss, lantus Lines - RIJ TLC PPx - gi/dvt Full Code Critical Care Time: 55 mins
[2018-01-27] MEDS: Mometasone/Formoter 100/5 MDI INH SCH ×2 (10:30→20:39)
[2018-01-27] MEDS: Atorvastatin* 80 MG TAB PO SCH (16:51)
[2018-01-28] MEDS: Insulin GLARGINE(*) 1 UNITS UNIT SUBCUT SCH (04:47)
[2018-01-28 05:12] LABS: ABS Basophils 0.1 10^3/ul (0-0.2); ABS Eosinophils 0.2 10^3/ul (0-0.6); ABS Lymphocytes 0.7 10^3/ul (1.0-4.8); ABS Monocytes 0.5 10^3/ul (0-0.8); ABS Neutrophils 5.3 10^3/ul (1.5-7.7); ABS Nucleated RBC 0 10^3/ul; Eosinophil % 2.5 % (0-6); Hematocrit 39 % (42-52); Lymphocyte % 10.3 % (25-47); Mean Corpuscular HGB Conc 33 g/dl (31-36); Mean Corpuscular Hemoglobin 29 pg (27-31); Mean Corpuscular Volume 88 fL (80-94); Mean Platelet Volume 10.6 um3 (7.4-10.4); Nucleated Red Blood Cells % 0.1; Platelet Count 78 10^3/ul (150-450); Red Blood Count 4.49 10^6/ul (4.00-5.40); Red Cell Distribution Width 16 % (10.5-15); White Blood Count 6.8 10^3/ul (3.5-10.8)
[2018-01-28 05:13] LABS: INR 2.64 (0.77-1.02)
[2018-01-28 05:24] LABS: EGFR Non-African American 66.2 (>60)
[2018-01-28] MEDS: Mometasone/Formoter 100/5 MDI INH SCH ×2 (07:39→20:00)
[2018-01-28] MEDS ORDERED: NS 0.9% 500 ML* 500 ML IV ONE (09:08)
--- NOTE | 2018-01-28 09:14 | PN ---
Date of Service: 01/28/18 Critical Care Services: 57M with htn, hld, dm, cad, chronic systolic chf, afib on coumadin, s/p aicd, h/ o cva, h/o dvt, gout, ckd, copd presents with severe abdominal pain and hypotension. 01/26: TLC placed. Now on levophed. 01/27: abdominal pain improved. hyponatremia improving. weaning levophed. 01/28: overall feeling better. tolerating po. levophed at 1. Vital Signs: Temp Pulse Resp BP SpO2 FiO2 98.1 F 78 23 96/64 95 01/28/18 07:35 01/28/18 08:45 01/28/18 08:45 01/28/18 08:45 01/28/18 08:45 Physical Exam: Gen - nad heent - ncat, eomi, perrl neck - no jvd cv - s1/s2, +murmur lungs - cta, no wheeze abd - soft, minimal tenderness ext - no edema neuro - non-focal Fluid Balance (Past 24 Hours): I= O= Net Intake & Output 01/26/18 01/27/18 01/28/18 01/29/18 06:59 06:59 06:59 06:59 Intake Total 4665.4 1278.1 660 Output Total 150 3350 2365 Balance -150 1315.4 -1086.9 660 Weight 79.4 kg 78.3 kg 79.9 kg Intake: IV Fluids 3463 995 NS (0.9%) 2463 995 Medicated IV 152.4 115.1 CC - Norepinephrine/ 152.4 115.1 Levophed Oral 1050 168 660 Output: Urine 150 3350 2365 Moore 0 Other: Date of Last Bowel 01/26/18 01/26/18 Movement # Bowel Movements 1 1 Labs: Laboratory Results - last 24 hr 01/27/18 01/27/18 01/27/18 11:42 16:32 20:59 WBC RBC Hgb Hct MCV MCH MCHC RDW Plt Count MPV Neut % (Auto) Lymph % (Auto) [place] % (Auto) Eos % (Auto) Baso % (Auto) Absolute Neuts (auto) Absolute Lymphs (auto) Absolute Monos (auto) Absolute Eos (auto) Absolute Basos (auto) Absolute Nucleated RBC Nucleated RBC % INR (Anticoag Therapy) Sodium Potassium Chloride Carbon Dioxide Anion Gap BUN Creatinine Est GFR ( Amer) Est GFR (Non-Af Amer) BUN/Creatinine Ratio Glucose POC Glucose (mg/dL) 225 H 251 H 251 H Calcium Magnesium Digoxin 01/28/18 01/28/18 01/28/18 04:50 04:50 04:50 WBC 6.8 RBC 4.49 Hgb 13.0 L Hct 39 L MCV 88 MCH 29 MCHC 33 RDW 16 H Plt Count 78 L MPV 10.6 H Neut % (Auto) 78.5 Lymph % (Auto) 10.3 L [place] % (Auto) 7.9 H Eos % (Auto) 2.5 Baso % (Auto) 0.8 Absolute Neuts (auto) 5.3 Absolute Lymphs (auto) 0.7 L Absolute Monos (auto) 0.5 Absolute Eos (auto) 0.2 Absolute Basos (auto) 0.1 Absolute Nucleated RBC 0 Nucleated RBC % 0.1 INR (Anticoag Therapy) 2.64 H Sodium 131 L Potassium 3.9 Chloride 96 L Carbon Dioxide 30 Anion Gap 5 BUN 27 H Creatinine 1.14 Est GFR ( Amer) 80.1 Est GFR (Non-Af Amer) 66.2 BUN/Creatinine Ratio 23.7 H Glucose 161 H POC Glucose (mg/dL) Calcium 9.0 Magnesium 2.0 Digoxin 0.9 01/28/18 07:44 WBC RBC Hgb Hct MCV MCH MCHC RDW Plt Count MPV Neut % (Auto) Lymph % (Auto) [place] % (Auto) Eos % (Auto) Baso % (Auto) Absolute Neuts (auto) Absolute Lymphs (auto) Absolute Monos (auto) Absolute Eos (auto) Absolute Basos (auto) Absolute Nucleated RBC Nucleated RBC % INR (Anticoag Therapy) Sodium Potassium Chloride Carbon Dioxide Anion Gap BUN Creatinine Est GFR ( Amer) Est GFR (Non-Af Amer) BUN/Creatinine Ratio Glucose POC Glucose (mg/dL) 179 H Calcium Magnesium Digoxin Studies: CT abd/pel 01/26 IMPRESSION: 1. Resolution of right pleural effusion since 06/15/2017. There is persistent bibasilar fibro-atelectatic change and calcified granulomata and little change with lobular noncalcified left lower lobe nodule. 2. Borderline splenomegaly which is similar. 3. Bilateral adrenal nodules which appear to be similar. 4 small fat filled left inguinal hernia. CXR 01/26 IMPRESSION: LINES AND TUBES ABOVE. MILD CARDIOMEGALY. Abd Xray 01/26 IMPRESSION: NO EVIDENCE FOR OBSTRUCTION. TTE 01/26 Conclusions The left ventricular chamber size is severely dilated. There is severely decreased left ventricular systolic function. The estimated ejection fraction is less than 20%. The left atrium is severely dilated. The right ventricle is moderate to severely dilated. The right ventricular global systolic function is moderately reduced. A pacemaker/icd wire is visualized in the right ventricle. There is mild to moderate aortic stenosis, low gradient There is moderate secondary/functional mitral regurgitation that may be underestimated in severity There is mild to moderate tricuspid regurgitation. There is evidence of moderate pulmonary hypertension. Definity was used to optimize study. Compared to prior study from 05/2017, the degree of TR is less and degree of RV dysfunction is worse. Impression: 57M with htn, hld, dm, cad, chronic systolic chf, afib on coumadin, s/p aicd, h/ o cva, h/o dvt, gout, ckd, copd presents with severe abdominal pain and hypotension. Plan: Neuro - pain control CV - htn, hld, cad, chf, afib, hypotension - cautious iv hydration - tte with severe LV and RV dysfunction - c/w asa/statin - levophed for bp support - monitor dig level - start midodrine po Pulm - copd - no wheezing on exam - nebulizers prn - c/w dulera ID - afebrile - cxr/ua neg - normal wbc - no evidence of infection GI - abdominal pain - improving - suspect poor perfusion to gut 2/2 hypotension - ct without obvious pathology - lactate/lipase normal - surgery evaluation appreciated Renal - acute on chronic renal failure, hyponatremia - renal failure and hyponatremia improving - monitor bmp Heme - monitor cbc Endo - DM - a1c 12 - check fs, niss, lantus Lines - RIJ TLC PPx - gi/dvt Full Code Critical Care Time: 50 mins
[2018-01-28] MEDS: Insulin LISPRO* 1 UNITS UNIT SUBCUT SCH ×4 (09:24→21:48)
[2018-01-28] MEDS: Omeprazole CAP* 20 MG PO SCH ×2 (09:26→21:48)
[2018-01-28] MEDS: Cyanocobalamin TAB* 500 MCG PO SCH (09:26)
[2018-01-28] MEDS: Aspirin EC TAB* 81 MG TAB.EC PO SCH (09:26)
[2018-01-28] MEDS: Docusate CAP* 100 MG PO SCH ×2 (09:26→21:49)
[2018-01-28] MEDS: CMCS - Midodrine (NF) 5 MG TAB PO SCH ×3 (10:30→21:48)
[2018-01-28] MEDS ORDERED: Insulin GLARGINE(*) 1 UNITS UNIT SUBCUT ONE (13:00)
[2018-01-28] MEDS ORDERED: Warfarin TAB(*) 5 MG PO ONE (17:00)
[2018-01-28] MEDS: Digoxin TAB* 0.125 MG PO SCH (17:19)
[2018-01-28] MEDS: Atorvastatin* 80 MG TAB PO SCH (17:19)
[2018-01-29] MEDS ORDERED: Insulin GLARGINE(*) 1 UNITS UNIT SUBCUT SCH (05:00)
[2018-01-29 05:54] LABS: ABS Basophils 0.1 10^3/ul (0-0.2); ABS Eosinophils 0.2 10^3/ul (0-0.6); ABS Lymphocytes 0.8 10^3/ul (1.0-4.8); ABS Monocytes 0.5 10^3/ul (0-0.8); ABS Neutrophils 4.3 10^3/ul (1.5-7.7); ABS Nucleated RBC 0 10^3/ul; Eosinophil % 2.8 % (0-6); Hematocrit 38 % (42-52); Hemoglobin 12.5 g/dl (14.0-18.0); Lymphocyte % 13.2 % (25-47); Mean Corpuscular HGB Conc 33 g/dl (31-36); Mean Corpuscular Hemoglobin 29 pg (27-31); Mean Corpuscular Volume 88 fL (80-94); Mean Platelet Volume 11.5 um3 (7.4-10.4); Nucleated Red Blood Cells % 0; Platelet Count 94 10^3/ul (150-450); Red Cell Distribution Width 16 % (10.5-15); White Blood Count 5.8 10^3/ul (3.5-10.8)
[2018-01-29 05:56] LABS: INR 1.55 (0.77-1.02)
[2018-01-29 06:06] LABS: EGFR Non-African American 61.2 (>60)
[2018-01-29] MEDS: Mometasone/Formoter 100/5 MDI INH SCH ×2 (07:59→19:59)
[2018-01-29] MEDS: Insulin LISPRO* 1 UNITS UNIT SUBCUT SCH ×4 (08:45→21:37)
[2018-01-29] MEDS: Omeprazole CAP* 20 MG PO SCH ×2 (08:45→21:35)
[2018-01-29] MEDS: Docusate CAP* 100 MG PO SCH ×2 (08:45→21:35)
[2018-01-29] MEDS: Aspirin EC TAB* 81 MG TAB.EC PO SCH (08:45)
[2018-01-29] MEDS: Cyanocobalamin TAB* 500 MCG PO SCH (08:46)
[2018-01-29] MEDS: CMCS - Midodrine (NF) 5 MG TAB PO SCH ×3 (09:35→21:35)
--- NOTE | 2018-01-29 11:54 | PN ---
Subjective Date of Service: 01/29/18 Interval History: Had episode of SOB this AM that resolved with relaxing. He thinks it felt similar to past episodes when he has "fluid build up in my lungs" and is requesting his torsemide be restart He is otherwise anxious to be discharged We discussed his inability to obtain lantus but he does not view this as a problem because "I will find a way to get it." Objective Active Medications: Acetaminophen (Tylenol Tab*) 650 mg PO Q6H PRN PRN Reason: FEVER/PAIN Albuterol (Ventolin Hfa Inhaler*) 2 puff INH Q6H PRN PRN Reason: SOB/WHEEZING Aspirin (Aspirin Ec Tab*) 81 mg PO QAM [facility] Last Admin: 01/29/18 08:45 Dose: 81 mg Atorvastatin Calcium (Lipitor*) 80 mg PO 1700 [facility] Last Admin: 01/28/18 17:19 Dose: 80 mg Cyanocobalamin (Vitamin B12 Tab*) 1,000 mcg PO DAILY [facility] Last Admin: 01/29/18 08:46 Dose: 1,000 mcg Dextrose (D50w Syringe 50 Ml*) 12.5 gm IV PUSH .FOR FS < 60 - SS PRN PRN Reason: FS < 60 Digoxin (Lanoxin Tab*) 0.125 mg PO 1700 [facility] Last Admin: 01/28/18 17:19 Dose: 0.125 mg Docusate Sodium (Colace Cap*) 100 mg PO BID [facility] Last Admin: 01/29/18 08:45 Dose: 100 mg Empagliflozin (Jardiance) 10 mg PO DAILY [facility] Heparin Sodium (Porcine) (Heparin Flush Picc/Ml/Cvc(*)) 0 ml IV FLUSH 0600, 1800 [facility]; Protocol Last Admin: 01/29/18 05:35 Dose: 3 ml Insulin Human Isoph/Insulin Regular (Humulin 70/30 (*)) 30 units SUBCUT 0800 [facility] Insulin Human Isoph/Insulin Regular (Humulin 70/30 (*)) 15 units SUBCUT 1500 [facility] Insulin Human Lispro (Humalog*) 0 units SUBCUT ACHS [facility]; Protocol Stop: 01/29/18 23:59 Last Admin: 01/29/18 08:45 Dose: 1 units Midodrine (Midodrine (Nf)) 5 mg PO TID [facility]; Protocol Last Admin: 01/29/18 09:35 Dose: 5 mg Mometasone Furoate/Formoterol Fumar (Dulera 100/5 Mdi*) 2 puff INH BID [facility] Last Admin: 01/29/18 07:59 Dose: 2 puff Omeprazole (Prilosec Cap*) 20 mg PO BID [facility] Last Admin: 01/29/18 08:45 Dose: 20 mg Ondansetron HCl (Zofran Inj*) 4 mg IV Q4H PRN PRN Reason: NAUSEA Last Admin: 01/26/18 21:43 Dose: 4 mg Pharmacy Profile Note (Coumadin Per Pharmacy*) 1 note FOLLOW UP .PER PHARMACY PROTOC [facility]; Protocol Polyethylene Glycol/Electrolytes (Miralax*) 17 gm PO DAILY PRN PRN Reason: CONSTIPATION Vital Signs - 8 hr 01/29/18 01/29/18 01/29/18 07:23 07:58 08:00 Temperature 97.3 F Pulse Rate 84 82 Respiratory 20 20 16 Rate Blood Pressure 106/72 (mmHg) O2 Sat by Pulse 99 96 Oximetry 01/29/18 11:29 Temperature 98.1 F Pulse Rate 103 Respiratory 20 Rate Blood Pressure 136/81 (mmHg) O2 Sat by Pulse 99 Oximetry Oxygen Devices in Use Now: None Appearance: sitting up in bed, NAD Eyes: No Scleral Icterus, PERRLA Ears/Nose/Mouth/Throat: NL Teeth, Lips, Gums, Clear Oropharnyx Neck: NL Appearance and Movements; NL JVP, Trachea Midline Respiratory: Symmetrical Chest Expansion and Respiratory Effort, Clear to Auscultation Cardiovascular: - - irir, early peaking AMADOR Abdominal: NL Sounds; No Tenderness; No Distention, No Hepatosplenomegaly Lymphatic: No Cervical Adenopathy Extremities: - - trace edema bl LE Neurological: Alert and Oriented x 3 Result Diagrams: 01/29/18 05:33 01/29/18 05:33 Microbiology and Other Data: Microbiology 01/26/18 03:50 Aerobic Blood Culture - Preliminary Blood Venous No Growth Day 3 Anaerobic Blood Culture - Preliminary No Growth Day 3 01/26/18 12:35 Aerobic Blood Culture - Preliminary Blood Venous No Growth Day 2 Anaerobic Blood Culture - Preliminary No Growth Day 2 01/26/18 06:30 Nasal Screen MRSA (PCR) - Final Nasal Mrsa Not Detected 01/26/18 01:22 Stool Occult Blood (TYLER) - Final Stool Assess/Plan/Problems-Billing Assessment: 57 yo M h/o severe sCHF (EF <20%) with multiple valvular disease, IDDM, afib, COPD p/w abdominal pain, hypotension found with hyperglycemia and hyponatremia thought in setting of over diuresis 2/2 uncontrolled blood sugar - Patient Problems (1) Insulin dependent diabetes mellitus Comment: Inability to afford medications limitation to care Discussed with Dr. Asencio who advised below regimen. SW assisting with coverage for SGLT-2 coverage Jardiance 10mg daily (starting tomorrow) Humalin 70/30 30U in AM and 15 units in afternoon [facility] Greatest risk is afternoon hypoglycemia Stop lantus, stop lispro SS tonight before 70/30 tomorrow (2) Hypotension Comment: In setting of dehydration from uncontrolled IDDM Required levophed in ICU - stopped 01/28 Started on midodrine in ICU Titrate off if stable as we restart low dose torsemide (3) Acute on chronic systolic (congestive) heart failure Comment: Chronic compensated torsemide 20mg today uptitrate and add metolazole when able (4) Acute renal failure Comment: in setting of dehydration resolved (5) Atrial fibrillation Comment: coumadin digoxin metoprolol has not yet been restarted 2/2 to dehydration 12.5mg BID to start tomorrow. Midodrine still needs to be titrated down (6) DVT prophylaxis Comment: coumadin INR tomorrow dosed per pharmacy Status and Disposition: While pt is ambulatory I believe he needs close observation for resumption of afib, CHF and DM2 medications before he can be discharged
[2018-01-29] MEDS: Torsemide TAB* 20 MG PO SCH (11:56)
[2018-01-29] MEDS ORDERED: Warfarin TAB(*) 7.5 MG PO ONE (17:00)
[2018-01-29] MEDS: Atorvastatin* 80 MG TAB PO SCH (17:42)
[2018-01-29] MEDS: Digoxin TAB* 0.125 MG PO SCH (17:42)
[2018-01-30 06:48] LABS: EGFR Non-African American 60.7 (>60)
[2018-01-30 06:54] LABS: INR 1.58 (0.77-1.02)
[2018-01-30] MEDS ORDERED: Insulin ISOPH/REG 70/30 (*) 1 UNITS UNIT SUBCUT SCH ×2 (08:00→15:00)
[2018-01-30] MEDS: Mometasone/Formoter 100/5 MDI INH SCH (08:06)
[2018-01-30] MEDS ORDERED: EMPAGLIFOZIN 25 MG PO SCH (09:00)
[2018-01-30] MEDS: Torsemide TAB* 20 MG PO SCH (09:07)
[2018-01-30] MEDS: CMCS - Midodrine (NF) 5 MG TAB PO SCH ×2 (09:07→14:31)
[2018-01-30] MEDS: Aspirin EC TAB* 81 MG TAB.EC PO SCH (09:07)
[2018-01-30] MEDS: Omeprazole CAP* 20 MG PO SCH (09:07)
[2018-01-30] MEDS: Cyanocobalamin TAB* 500 MCG PO SCH (09:07)
[2018-01-30] MEDS: Docusate CAP* 100 MG PO SCH (09:07)
[2018-01-30] MEDS ORDERED: Dextrose 50% Syringe 50 ML* 25 GM/50 ML SYRINGE IV PUSH PRN (11:48)
[2018-01-30] MEDS ORDERED: Magnesium Sulfate 2 GM IV* 2 GM/50 ML BAG IVPB ONE (11:51)
[2018-01-30] MEDS ORDERED: Insulin LISPRO* 1 UNITS UNIT SUBCUT SCH (12:00)
[2018-01-30] MEDS ORDERED: Magnesium Oxide TAB* 400 MG PO SCH (12:00)
[2018-01-30 13:00] VITALS: BP 94/57
[2018-01-30] MEDS ORDERED: Warfarin TAB(*) 7.5 MG PO ONE (17:00)
--- NOTE | 2018-01-31 04:45 | DS ---
CC: Dr. Rangel * DISCHARGE SUMMARY: DATE OF ADMISSION: 01/26/18 DATE OF DISCHARGE: 01/30/18 PRIMARY CARE PROVIDER: Dr. Rangel. DISCHARGE DIAGNOSES: 1. Severe hyponatremia and hyperglycemia due to combination of dehydration and uncontrolled diabetes. 2. Acute kidney disease on chronic renal insufficiency. 3. Mild elevation of troponin likely due to demand ischemia. 4. Hypovolemic shock in a patient who required to be on epinephrine drip in the intensive care unit. 5. Acute on chronic systolic congestive heart failure. SECONDARY DIAGNOSES: 1. History of atrial fibrillation. 2. History of severe cardiomyopathy with EF of 20%. 3. Status post AICD placement. 4. Hcmdjqna-sk-dspxeb mitral regurgitation and severe tricuspid regurgitation. 5. Hypertension. 6. Hyperlipidemia. 7. Coronary artery disease. 8. Peripheral arterial disease. 9. History of ischemic stroke. 10. Gout. 11. Chronic kidney disease stage 3. 12. Diabetes type 2, insulin dependent. 13. Chronic obstructive pulmonary disease, not on oxygen. 14. Current smoker. 15. History of left foot ischemia, status post acute intervention. MEDICATIONS AT DISCHARGE: Include: 1. Albuterol inhaler on a p.r.n. basis. 2. Allopurinol 100 mg b.i.d. 3. Aspirin 81 mg daily. 4. Lipitor 80 mg daily. 5. Vitamin B12 at 1000 mcg daily. 6. Colace 100 mg b.i.d. 7. Advair Diskus 100/50 one inhalation b.i.d. 8. Colace 100 mg b.i.d. 9. Prilosec 20 mg b.i.d. 10. MiraLAX 17 g daily. 11. Coumadin 2.5 mg daily. 12. Digoxin 0.125 mg daily. 13. Jardiance 10 mg daily. 14. Insulin Humulin KwikPen 70/30, the patient is to take 30 units daily in the morning and 15 in the afternoon. 15. Mag-Ox 800 mg daily. 16. Torsemide 20 mg daily. Please note that patient's lisinopril, metoprolol were discontinued as well as Aldactone. The patient's torsemide dose was lowered significantly from approximately 60 mg daily to now 20 mg daily. This is due to patient's hypovolemia and acute kidney injury. Those medications may need to be reinstituted once patient is back to his baseline. The patient is advised to check his weight daily and to take an additional dose of torsemide if his weight increases by over 5 pounds. His weight at discharge is 176 pounds 2 ounces. LABORATORY DATA AND STUDIES PERFORMED DURING THE HOSPITAL STAY: Included: The patient's transthoracic echocardiogram obtained on 01/26/18 showed EF of less than 20% with mild to moderate tricuspid regurgitation and moderate secondary functional mitral regurgitation. At discharge, on 01/30/18, sodium of 132, potassium of 4.1, chloride 96, carbon dioxide 29, BUN 27, creatinine 1.23, magnesium was 1.7. On 01/29/18, white blood cell count of 4.8, hemoglobin 12.5, hematocrit of 58 and platelets of 94. Chest x-ray was last obtained on 01/26/18, impression "Lines and tubes as above. Mild cardiomegaly." CT of abdomen and pelvis obtained on 01/26/18, impression: "Resolution of right pleural effusion since 06/15/17. There is persistent bibasilar fibrotic _ ____ change and calcified granuloma and a little change with lobular noncalcified left lower lobe nodule. Borderline splenomegaly, which is similar. Bilateral adrenal nodules, which appears to be similar. Small fat- filled left inguinal hernia." The patient's INR was 1.58 at discharge. Digoxin level on 01/28/18 was 0.9 and at admission was 1.0. HOSPITALIZATION COURSE: Kiko Cam is a 57-year-old male who presented to the hospital on 01/26/18 complaining of weakness and abdominal pain as well as nausea. At that point, the patient was noted to be severely dehydrated. His sodium was 112 and his glucose level was 498. The patient was placed on an insulin drip and admitted to the intensive care unit. His creatinine at admission was 2.7 and his baseline is usually 1.2 to 1.5. The patient stated that he has not used his insulin Lantus as the insurance did not pay for it. He was admitted to the hospital, treated in the intensive care unit with insulin drip. Gradually, his hyponatremia, which was a combination overdiuresis and pseudohyponatremia due to uncontrolled hyperglycemia, resolved. The patient was transiently on Levophed due to hypovolemic shock that was discontinued. The patient was transferred out of the intensive care unit and did very well. On 01/30/18, he requested to be discharged home. His torsemide was restarted at a small dose of 20 mg daily. The patient's systolic pressures remained rather soft in the low 100s and that is why his remaining medications were not restarted, which included metoprolol and lisinopril as well as Aldactone. The patient is asked to check his weight on a daily basis and to increase his dose of torsemide by 20 mg daily if his weight increases over 5 pounds from his baseline. It appears that the reason for patient's admission was related to patient's uncontrolled diabetes and not taking Lantus due to inability to afford the medication. Due to that, the hospitalist service briefly discussed the case with our adhesive primer, who recommended Jardiance as well as Humulin KwikPen on which the patient is going to be discharged home today. The patient is also in the process of applying for Medicaid and had seen social work during the hospital stay. At discharge, the patient was recommended to follow up with his primary care provider in approximately 4 to 7 days. PHYSICAL EXAM AT THE TIME OF DISCHARGE: Blood pressure of 94/57, heart rate of 55 and regular, respiratory rate 16, oxygen saturation 98% on room air. Temperature 97.6. General: The patient is a very pleasant 67-year-old male who is in no acute distress, alert, awake and oriented x3. HEENT: Head atraumatic, normocephalic. Eyes: Pupils equal, round, and reactive to light and accommodation. Oropharynx clear. Mucosa moist. Neck: Supple. No JVD. No bruits bilaterally. Cardiovascular: Irregularly irregular rhythm. No murmur. Respiratory: Clear to auscultation bilaterally. Abdomen: Soft, nontender. Bowel sounds present in all 4 quadrants. Extremities: There is no edema. Pulses +2 bilaterally. There is no clubbing or cyanosis. On neuro evaluation, speech clear, cranial nerves II through XII grossly intact. Motor strength is 5/5 bilaterally. Please note that this is a short summary of the patient's hospitalization. Please refer to further medical records for details. TIME SPENT: Approximately 40 minutes were spent on the patient's discharge. [id number]/[facility] #: [id number] [facility]
== END 2018-01-30 16:05 | disposition home or self-care (01) | DRG 637 ==
LOC: ED 01:07 → ICU 04:11 → OBSVTOIN 04:12 → MEDTELE 01-28 15:52
PROVIDERS: ADMIT Internal Medicine; ATTEND Internal Medicine
PROC: 05HM33Z Insertion of Infusion Device into Right Internal Jugular Vein, Percutaneous Approach (ICD-10-PCS; principal; 2018-01-26)
PROC: 3E043XZ Introduction of Vasopressor into Central Vein, Percutaneous Approach (ICD-10-PCS; 2018-01-26)
PROC: B543ZZA Ultrasonography of Right Jugular Veins, Guidance (ICD-10-PCS; 2018-01-26)
DX: E11.65 Type 2 diabetes mellitus with hyperglycemia (principal); R57.1 Hypovolemic shock; I50.23 Acute on chronic systolic (congestive) heart failure; I42.9 Cardiomyopathy, unspecified; E87.1 Hypo-osmolality and hyponatremia; N17.9 Acute kidney failure, unspecified; I13.0 Hypertensive heart and chronic kidney disease with heart failure and stage 1 through stage 4 chronic kidney disease, or unspecified chronic kidney disease; I24.8 Other forms of acute ischemic heart disease; I08.1 Rheumatic disorders of both mitral and tricuspid valves; I48.0 Paroxysmal atrial fibrillation; E78.5 Hyperlipidemia, unspecified; I25.10 Atherosclerotic heart disease of native coronary artery without angina pectoris; E11.51 Type 2 diabetes mellitus with diabetic peripheral angiopathy without gangrene; I73.9 Peripheral vascular disease, unspecified; M10.9 Gout, unspecified; J44.9 Chronic obstructive pulmonary disease, unspecified; E11.22 Type 2 diabetes mellitus with diabetic chronic kidney disease; R91.1 Solitary pulmonary nodule; F17.210 Nicotine dependence, cigarettes, uncomplicated; R16.1 Splenomegaly, not elsewhere classified; E27.8 Other specified disorders of adrenal gland; R10.9 Unspecified abdominal pain; K40.90 Unilateral inguinal hernia, without obstruction or gangrene, not specified as recurrent; N18.3 Chronic kidney disease, stage 3 (moderate); K44.9 Diaphragmatic hernia without obstruction or gangrene; Z82.49 Family history of ischemic heart disease and other diseases of the circulatory system; Z95.810 Presence of automatic (implantable) cardiac defibrillator; I25.2 Old myocardial infarction; Z86.73 Personal history of transient ischemic attack (TIA), and cerebral infarction without residual deficits; Z91.14 Patient's other noncompliance with medication regimen; Z83.3 Family history of diabetes mellitus; Z83.6 Family history of other diseases of the respiratory system; Z98.61 Coronary angioplasty status; Z87.01 Personal history of pneumonia (recurrent); Z56.0 Unemployment, unspecified; Z86.718 Personal history of other venous thrombosis and embolism; Z79.82 Long term (current) use of aspirin; Z79.01 Long term (current) use of anticoagulants; Z79.4 Long term (current) use of insulin
CPT/HCPCS: 36415; 71045; 74018; 74176; 80048; 80053; 80162; 81003; 82140; 82150; 82272; 82533; 82570; 82803; 83036; 83605; 83690; 83735; 83880; 83930; 84100; 84300; 84484; 84540; 84550; 85025; 85060; 85610; 85730; 86140; 86850; 86900; 86901; 87040; 87641; 93306; 94640; 99285; A9270-GY; C8929; J2270; J3475

== ENCOUNTER 2018-02-01 03:03 | Emergency (ER) | payer MEDICARE ==
[2018-02-01] MEDS ORDERED: Ondansetron INJ* 2 MG/ML VIAL IV ONE (03:46)
[2018-02-01] MEDS ORDERED: fentaNYL* 50 MCG/ML 2 ML VIAL (100 MCG VIAL) IV SLOW PU ONE (03:46)
[2018-02-01] MEDS ORDERED: NS 0.9% 1000 ML* 1,000 ML IV ONE (03:47)
--- NOTE | 2018-02-01 03:50 | ED ---
Abdominal Pain/Male - HPI Summary HPI Summary: A 57 y/o male presents to ED c/o abdominal pain reaching 5/10 in severity. As per triage, "Pt co diffuse abd pain since last evening. Recently adm for [facility]IL[facility], discharged on Monday". In the ED room, the patient has a pulse of 92 BPM and O2 saturation of 95/76. According to the patient, he has been experiening abdominal pain since yesterday coupled with vomiting. He noted that he was recently D/C from [facility] [place] ED on Monday for the same reasons. He noted that he did not recieve any medications. He also have not taken any pain medications at home. No prior abdominal surgeries. - History of Current Complaint Chief Complaint: EDAbdPain Stated Complaint: ABD PAIN, SOB Time Seen by Provider: 02/01/18 03:37 Hx Obtained From: Patient Onset/Duration: Sudden Onset, Lasting Days Timing: Constant Severity Initially: Moderate Severity Currently: Moderate Pain Intensity: 5 Pain Scale Used: 0-10 Numeric Location: Diffuse Radiates: No Character: Not Applicable Aggravating Factor(s): Nothing Alleviating Factor(s): Nothing Associated Signs And Symptoms: Positive: Vomiting - Allergies/Home Medications Allergies/Adverse Reactions: Allergies Allergy/AdvReac Type Severity Reaction Status Date / Time No Known Allergies Allergy Verified 06/27/17 00:29 PMH/Surg Hx/FS Hx/Imm Hx Endocrine/Hematology History: Reports: Hx Anticoagulant Therapy - coumadin, Hx Diabetes Denies: Hx Blood Disorders, Hx Blood Transfusions, Hx Bone Marrow Disease, Hx Systemic Lupus Erythematosus, Hx Sickle Cell Disease, Hx Thyroid Disease, Hx Anemia, Hx Unexplained Bleeding, Other Endocrine/Hematological Disorders Cardiovascular History: Reports: Hx Angioplasty, Hx Auto Implanted Cardiovert Defib - defibrillator, Hx Congestive Heart Failure, Hx Coronary Artery Disease, Hx Deep Vein Thrombosis - L leg, Hx Hypertension, Hx Pacemaker/ICD, Other Cardiovascular Problems/Disorders - Pt states one valve doesn't function anymore Denies: Hx Aneurysm, Hx Angina, Hx Cardiac Arrest, Hx Cardiomegaly, Hx Congenital Heart Disease, Hx Embolism, Hx Hypercholesterolemia, Hx Hypotension, Hx Peripheral Vascular Disease, Hx Rheumatic Fever, Hx Syncope, Hx Valvular Heart Disease Respiratory History: Reports: Hx Chronic Bronchitis - last couple of months not current, Hx Chronic Obstructive Pulmonary Disease (COPD), Hx Pneumonia - winter 2009, Hx Sleep Apnea - uses O2 to sleep at night Denies: Hx Asthma, Hx Cystic Fibrosis, Hx Lung Cancer, Hx Pleural Effusion, Hx Pulmonary Edema, Hx Pulmonary Embolism, Hx Seasonal Allergies, Other Respiratory Problems/Disorders GI History: Reports: Hx Hiatal Hernia, Other GI Disorders - hernia in upper abdomen Denies: Hx Cirrhosis, Hx Crohn's Disease, Hx Diverticulosis, Hx Gall Bladder Disease, Hx Gastroesophageal Reflux Disease, Hx Gastrointestinal Bleed, Hx Irritable Bowel, Hx Jaundice, Hx Obstructive Bowel, Hx Ileostomy, Hx Pyloric Stenosis, Hx Ulcer History: Denies: Hx Acute Renal Failure, Hx Benign Prostatic Hyperplasia, Hx Chronic Renal Failure, Hx Dialysis, Hx Kidney Infection, Hx Kidney Stones, Hx Renal Disease, Other Problems/Disorders Musculoskeletal History: Reports: Hx Gout, Other Musculoskeletal History - hiatal hernia Denies: Hx Arthritis, Hx Back Problems, Hx Orthopedic Injury Sensory History: Denies: Hx Cataracts, Hx Contacts or Glasses, Hx Eye Injury, Hx Eye Prosthesis, Hx Glaucoma, Hx Legally Blind, Hx Macular Degeneration, Hx Vision Problem, Hx Deafness, Hx Hearing Aid, Hx Hearing Problem, Other Sensory Impairments Opthamlomology History: Denies: Hx Cataracts, Hx Contacts or Glasses, Hx Eye Injury, Hx Eye Prosthesis, Hx Glaucoma, Hx Legally Blind, Hx Macular Degeneration, Hx Vision Problem, Other Sensory Impairments Neurological History: Reports: Hx Headaches - infrequently Denies: Hx Dementia, Hx Developmental Delay, Hx Migraine, Hx Nerve Disease, Hx Seizures, Hx Spinal Cord Injury, Hx Transient Ischemic Attacks (TIA), Other Neuro Impairments/Disorders Psychiatric History: Reports: Hx Substance Abuse - NONE X 5 YRS, Other Psychiatric Issues/Disorders - former alcoholic Denies: Hx Anxiety, Hx Attention Deficit Hyperactivity Disorder, Hx Eating Disorder, Hx Depression, Hx Panic Disorder, Hx Community Mental Health Tx, Hx Schizophrenia - Surgical History Surgery Procedure, Year, and Place: defibrillator. thrombectomy (lower leg scars) Hx Anesthesia Reactions: No Infectious Disease History: No Infectious Disease History: Denies: Hx Clostridium Difficile, Hx Hepatitis, Hx Human Immunodeficiency Virus (HIV), Hx of Known/Suspected MRSA, Hx Shingles, Hx Tuberculosis, Hx Known/ Suspected VRE, Hx Known/Suspected VRSA, Traveled Outside the [place] in Last 30 Days - Family History Known Family History: Positive: Cardiac Disease, Diabetes - Social History Alcohol Use: None Substance Use Type: Reports: None Substance Use Comment - Amount & Last Used: past hx coccaine use Smoking Status (MU): Heavy Every Day Tobacco Smoker Type: Cigarettes Length of Time of Smoking/Using Tobacco: 41 years Have You Smoked in the Last Year: Yes Review of Systems Negative: Fever Positive: Abdominal Pain, Vomiting All Other Systems Reviewed And Are Negative: Yes Physical Exam - Summary Physical Exam Summary: VITAL SIGNS: Reviewed. GENERAL: Patient is a well-developed and nourished male who is lying comfortable in the stretcher. Patient is not in any acute respiratory distress. HEAD AND FACE: No signs of trauma. No ecchymosis, hematomas or skull depressions. No sinus tenderness. EYES: PERRLA, EOMI x 2, No injected conjunctiva, no nystagmus. EARS: Hearing grossly intact. Ear canals and tympanic membranes are within normal limits. MOUTH: Oropharynx within normal limits. NECK: Supple, trachea is midline, no adenopathy, no JVD, no carotid bruit, no c- spine tenderness, neck with full ROM. CHEST: Symmetric, no tenderness at palpation LUNGS: Clear to auscultation bilaterally. No wheezing or crackles. Decreased bilateral breath sounds CVS: Regular rate and rhythm, S1 and S2 present, no murmurs or gallops appreciated. ABDOMEN: Soft, deduced tenderness more on the right side. No signs of distention. No rebound no guarding, and no masses palpated. Bowel sounds are normal. EXTREMITIES: FROM in all major joints, no edema, no cyanosis or clubbing. NEURO: Alert and oriented x 3. No acute neurological deficits. Speech is normal and follows commands. SKIN: Dry and warm Triage Information Reviewed: Yes Vital Signs On Initial Exam: Initial Vitals Temp Pulse Resp BP Pulse Ox 97.3 F 64 20 87/72 89 02/01/18 03:04 02/01/18 03:04 02/01/18 03:04 02/01/18 03:04 02/01/18 03:04 Vital Signs Reviewed: Yes Diagnostics - Vital Signs Vital Signs Temp Pulse Resp BP Pulse Ox 02/01/18 03:17 33 02/01/18 03:15 95/76 02/01/18 03:04 97.3 F 64 20 87/72 89 - Laboratory Result Diagrams: 02/01/18 03:53 02/01/18 03:53 Lab Statement: Any lab studies that have been ordered have been reviewed, and results considered in the medical decision making process. - Radiology CXR Radiology Interpretation Completed By: ED Physician - bilateral interstitial infiltrate consistent with CHF. Pending official report. - EKG 0349 Cardiac Rate: Other Rate - 103 bpm EKG Rhythm: Atrial Fibrillation EKG Interpretation: LBBB Re-Evaluation - Re-Evaluation First Eval Re-Evaluation Time: 05:10 Comment: Hospitalist was paged. Patient c/o difficulty breathing Second Eval Re-Evaluation Time: 05:23 Comment: Pt's CAT scan from 5 days ago did not show any new acute pathology. Third Eval Re-Evaluation Time: 06:10 Comment: Hospitalist was paged again (2nd attempt). Fourth Eval Re-Evaluation Time: 06:23 Comment: Patient continues to have abdominal pain. Patient will get CAT scan of abdomen. Abdominal Pain Fem Course/Dx - Course Course Of Treatment: A 57 y/o male presents to ED c/o abdominal pain reaching 5/ 10 in severity. A EKG revealed atrial fibrillation of 103 BPM, LBBB. A CXR revealed bilateral interstitial infiltrate consistent with CHF. In the ED course , the patient recieved Morphine, Fentanyl, Zofran and IV fluids. Patient will be signed out to Dr. Monk via Dr. Ramon, pending CT A/P and disposition, at shift change on 02/01/2018 at 0700. Patient will be signed out to Dr. Monk with a diagnosis of CHF and abdominal pain. - Diagnoses Provider Diagnoses: CHF (congestive heart failure), Abdominal pain Discharge - Sign-Out/Discharge Documenting (check all that apply): Sign-Out Patient Signing out patient TO: Chaz Monk Receiving patient FROM: Rachele Ramon - Discharge Plan Condition: Stable Referrals: Jamari Rangel MD [Primary Care Provider] - - Attestation Statements Document Initiated by Scribe: Yes Documenting Scribe: Florencio Mason Provider For Whom Scribe is Documenting (Include Credential): Rachele Ramon MD Scribe Attestation: Florencio Kearns, scribed for Rachele Ramon MD on 02/01/18 at 0636.
[2018-02-01 04:25] LABS: Hematocrit 39 % (42-52); Mean Corpuscular HGB Conc 33 g/dl (31-36); Mean Corpuscular Hemoglobin 29 pg (27-31); Mean Corpuscular Volume 88 fL (80-94); Red Blood Count 4.42 10^6/ul (4.00-5.40); Red Cell Distribution Width 17 % (10.5-15); White Blood Count 8.6 10^3/ul (3.5-10.8)
[2018-02-01 04:28] LABS: EGFR Non-African American 40.9 (>60)
[2018-02-01 04:29] LABS: INR 2.88 (0.77-1.02)
[2018-02-01 05:03] LABS: ABS Basophils 0.1 10^3/ul (0-0.2); ABS Eosinophils 0.1 10^3/ul (0-0.6); ABS Monocytes 0.8 10^3/ul (0-0.8); ABS Neutrophils 6.6 10^3/ul (1.5-7.7); ABS Nucleated RBC 0 10^3/ul; Eosinophil % 0.9 % (0-6); Lymphocyte % 11.4 % (25-47); Nucleated Red Blood Cells % 0.1; Platelet Count 157 10^3/ul (150-450)
[2018-02-01] MEDS ORDERED: Morphine INJ* 4 MG/ML 1 ML SYRINGE (NEW SYRINGE VERSION) IV ONE (06:20)
[2018-02-01] MEDS ORDERED: Iodixanol* (CONTRAST) 320 MG/ML 100 ML SDV IV ONE (06:56)
--- NOTE | 2018-02-01 07:15 | ED ---
Progress - Progress Note Progress Note: This patient has been signed out from Dr. Ramon awaiting CT A/P and disposition. Patient is evaluated at 07:15. He states pain is currently improved from 8/10 from a 6/10 in severity. Patient reports diffuse abdominal pain that is worse on the right. On exam patient has diffuse abdominal tenderness that is worse on the right. - Results/Orders Results/Orders: A CT A/P reveals, as per radiologist: 1. FINDINGS SUGGESTIVE OF RIGHT HEART FAILURE. 2. SMALL AMOUNT OF ASCITES. 3. FATTY INFILTRATION OF THE LIVER. 4. ATHEROSCLEROSIS WITH CHRONIC APPEARING OCCLUSION OF THE RIGHT COMMON ILIAC AND EXTERNAL ILIAC ARTERIES. 5. STABLE BILATERAL ADRENAL NODULES. 6. STABLE LEFT LOWER LUNG NODULE. ED Physician has reviewed this report. Re-Evaluation - Re-Evaluation First Eval Re-Evaluation Time: 05:10 Comment: Hospitalist was paged. Patient c/o difficulty breathing Second Eval Re-Evaluation Time: 05:23 Comment: Pt's CAT scan from 5 days ago did not show any new acute pathology. Third Eval Re-Evaluation Time: 06:10 Comment: Hospitalist was paged again (2nd attempt). Fourth Eval Re-Evaluation Time: 06:23 Comment: Patient continues to have abdominal pain. Patient will get CAT scan of abdomen. Course/Dx - Course Course Of Treatment: This patient is a 57-year-old male who presents to emergency department with chief complaining of diffuse abdominal pain. This patient was signed out to Dr. Ramon at shift change. We are waiting for the Abdominal pelvic CT reading. During my exam the patient is lying comfortable actually sleeping when I went into the room. When he woke up the patient reports that the pain is 6 out of 10 mostly in the right side. The patient seems to be slightly hypotensive. Patient was given already 2 L of IV fluids by Dr. Ramon. ABDOMINOPELVIC CT IMPRESSION: fINDINGS SUGGESTIVE FOR RIGHT HEART FAILURE, SMALL AMOUNT OF ASCITES, FATTY INFILTRATION OF THE LIVER, ATHEROSCLEROSIS WITH CHRONIC APPEARING LESION OF THE RIGHT COMMON ILIAC AND EXTERNAL ILIAC ARTERIES. STABLE BILATERAL ADRENAL NODULES. A STABLE LEFT LOWER LUNG NODULE. The patient continues to have some pain but improved. The patient is hypotensive and he looks like he has had an acute and chronic renal insufficiency. Patient's BNP is elevated therefore believe the patient also is having a CHF exacerbation. Therefore this time I discussed my physical exam, findings and test results with Dr. Briones from the hospitalist services and she agrees to admit the patient to his services for further workup and management. At this point the patient is hemodynamically stable. I held the diuretics since the patient is hypotensive. After the patient was admitted by Dr. Briones , Dr. Montoya from the hospitalist services came down and assessed the patient again. The patient is very well known to Dr. Montoya. She reports that she discussed the case with and Dr. Ruiz from cardiology and he recommends for the patient to be transfer to a higher level facility for this patient's care. Dr. Montoya discussed the case with Dr. Burciaga at the [facility] and he accepted the patient for admission. Therefore the patient will be transferred to [facility]. Patient is hemodynamically stable alert and oriented 3. - Diagnoses Provider Diagnoses: CHF (congestive heart failure), Abdominal pain, Hypotension - Provider Notifications Discussed Care Of Patient With: Yas Briones - hospitalist Time Discussed With Above Provider: 09:10 Instructed by Provider To: Admit As Inpatient Discharge - Sign-Out/Discharge Documenting (check all that apply): Patient Departure - admit - Discharge Plan Condition: Stable Disposition: ADMITTED TO [facility] Referrals: Jamari Rangel MD [Primary Care Provider] - - Billing Disposition and Condition Condition: STABLE Disposition: Admitted to [facility] - Attestation Statements Document Initiated by Adonisibe: Yes Documenting Scribe: Vivian Jose Provider For Whom Del is Documenting (Include Credential): Chaz Monk MD Scribe Attestation: I, Vivian Jose, scribed for Chaz Monk MD on 02/01/18 at 1225. Scribe Documentation Reviewed: Yes Provider Attestation: The documentation as recorded by the Vivian couch accurately reflects the service I personally performed and the decisions made by me, Chaz Monk MD
--- NOTE | 2018-02-01 08:05 | RAD ---
Indication: Abdominal pain. Single frontal view of the chest performed at 0406 hours was reviewed. Comparison is made with previous exam dated January 26, 2018. Cardiomegaly is noted. Interstitial edema is noted consistent with CHF. Chronic pleural changes are noted. IMPRESSION: CARDIOMEGALY. INTERSTITIAL EDEMA CONSISTENT WITH CHF. PACEMAKER LEADS ARE IN PLACE. R0
--- NOTE | 2018-02-01 08:08 | RAD ---
CLINICAL HISTORY: IV dye only COMPARISON: January 26, 2018 , CT of the chest abdomen and pelvis dated June 20, 2009 TECHNIQUE: Multiple contiguous axial CT scans were obtained of the abdomen and pelvis after the administration of intravenous contrast. Coronal and sagittal multiplanar reformations are submitted for review. Oral contrast was not administered. Delayed images were obtained through the abdomen. FINDINGS: LUNG BASES: Again noted is level related nodule of the left lower lobe, stable from multiple previous examinations. The stability is consistent with benign nodularity. There is right atrial and right ventricular enlargement.. LIVER: The liver is diffusely low in attenuation compared to the spleen. There are no focal hepatic parenchymal masses. There is reflux into the hepatic veins. BILE DUCTS: There is no intrahepatic or extrahepatic biliary dilatation. GALLBLADDER: The gallbladder is normal, without pericholecystic inflammatory change. PANCREAS: The pancreas is normal, without mass or ductal dilatation. SPLEEN: The spleen is at the upper limits of normal in size UPPER GI TRACT: Evaluation of the gastrointestinal tract is limited by incomplete gastric distention. The upper GI tract is unremarkable. SMALL BOWEL AND MESENTERY: The small bowel is normal in contour, course, and caliber. There is no obstruction or dilatation. COLON: The colon is normal in contour, course, caliber. There is no pericolonic inflammatory change. ADRENALS: There are bilateral adrenal nodules, stable from the previous examinations. KIDNEYS: There is dislocation of the right renal collecting system. A stable right renal cyst is noted. BLADDER: The bladder is smooth in contour. PELVIC ORGANS: The prostate gland is normal. The seminal vesicles are symmetric. AORTA: There is atherosclerosis of the abdominal aorta with chronic appearing occlusion of the right common and external iliac vessels with reconstitution at the level of the right common femoral artery. IVC: Unremarkable LYMPH NODES: There is a 0.9 cm short axis portacaval lymph node. There is no lymphadenopathy by size criteria. ABDOMINAL WALL: There is a fat-containing left inguinal hernia. BONES AND SOFT TISSUES: Degenerative changes are noted most pronounced at L4-L5. OTHER: There is a small amount of ascites. IMPRESSION: 1. FINDINGS SUGGESTIVE OF RIGHT HEART FAILURE. 2. SMALL AMOUNT OF ASCITES. 3. FATTY INFILTRATION OF THE LIVER. 4. ATHEROSCLEROSIS WITH CHRONIC APPEARING OCCLUSION OF THE RIGHT COMMON ILIAC AND EXTERNAL ILIAC ARTERIES. 5. STABLE BILATERAL ADRENAL NODULES. 6. STABLE LEFT LOWER LUNG NODULE.
[2018-02-01 08:29] LABS: Urine Appearance Cloudy; Urine Blood Negative (Negative); Urine Color Yellow; Urine Ketones Negative (Negative); Urine Protein 1+(30 mg/dL) (Negative); Urine Red Blood Cell Trace(0-2/hpf) (Absent); Urine Specific Gravity 1.029 (1.010-1.030); Urine Urobilinogen Negative (Negative); Urine White Blood Cell Trace(0-5/hpf) (Absent)
[2018-02-01] MEDS ORDERED: oxyCODONE/Acetamin 5/325 MG* TAB PO ONE (08:38)
[2018-02-01] MEDS ORDERED: Magnesium Oxide TAB* 400 MG PO ONE (08:53)
[2018-02-01] MEDS ORDERED: Furosemide IV* 10 MG/ML VIAL (40 MG) IV ONE (10:32)
[2018-02-01] MEDS ORDERED: MILRINONE 20 MG/100 ML IVPB SCH (12:00)
[2018-02-01] MEDS ORDERED: Furosemide IV* 10 MG/ML VIAL (40 MG) ONE (12:10)
[2018-02-01 12:57] VITALS: BP 108/78
--- NOTE | 2018-02-01 22:02 | CONS ---
CC: Dr. Rangel; Dr. Hernandez, [facility]; Dr. Brar; Dr. Ruiz, Cardiology; Dr. Burciaga, bias cutting machine operator vertical, [facility]* CONSULTATION REPORT: DATE OF CONSULT: 02/01/18 PRIMARY CARE PROVIDER: Dr. Rangel. CARDIOLOGISTS: Dr. Hernandez from [place], Dr. Brar from [place]. REQUESTING PHYSICIAN: Dr. Monk from the emergency department. REASON FOR CONSULT: In regards to possibility of admission of this patient for congestive heart failure and abdominal pain. CHIEF COMPLAINT: Abdominal pain and shortness of breath. HISTORY OF PRESENT ILLNESS: Jovanni Cam is a 57-year-old male with a history of nonischemic cardiomyopathy with EF of 20% as well as diabetes and chronic atrial fibrillation, status post ICD placement, who presented to the hospital complaining of abdominal pain. The patient in fact was hospitalized at our facility from 01/26/18 to 01/30/18 and discharged by myself from this hospitalization. At that point, the patient had marked hyponatremia and marked hyperglycemia. The hyponatremia was thought to be due to combination of pseudohyponatremia due to hyperglycemia as well as dehydration due to over diuresis. The patient was treated by the bias cutting machine operator vertical in the intensive care unit on pressors. He was given IV fluid boluses. During that time, he also complained of intermittent abdominal pain, which he had in the past when he had problems with CHF and hypoperfusion. He eventually appeared to be euvolemic and requested to be discharged on 01/30/18. His torsemide was decreased from 60 mg daily to 20 mg daily and his metoprolol and PARTH inhibitor had to be discontinued due to low systolic blood pressures. The patient stated that after his discharge, he saw Dr. Brar on 01/31/18, who increased the patient 's torsemide to 20 mg b.i.d. and restarted the patient's metoprolol. In the morning on 02/01/18, the patient started noticing right upper quadrant abdominal pain and started having problems with nausea and vomiting. He also complained of some shortness of breath. Those symptoms usually occur when the patient is in CHF. He came to the hospital for evaluation. Here, initially the patient was planned to be admitted to the intensive care unit, but eventually he is going to be transferred to [facility] for further management of his acute on chronic CHF. PAST MEDICAL HISTORY: 1. History of nonischemic cardiomyopathy with EF of 20%. 2. He is status post ICD placed in 2013. 3. History of tobacco abuse. 4. Hypertension. 5. Hyperlipidemia. 6. History of chronic atrial fibrillation, on anticoagulation. 7. History of coronary artery disease and stents in the past. 8. History of iliofemoral thrombectomy in the past. 9. History of CVA x2. 10. History of lower extremity DVT. 11. History of recurrent epigastric pain and right upper quadrant abdominal pain due to gallbladder wall edema whenever the patient gets in CHF. 12. History of gout. 13. History of chronic kidney disease, stage 3, due to diabetes. MEDICATIONS AT HOME: Include: 1. Torsemide 20 mg b.i.d. 2. Coumadin 2.5 mg daily. 3. MiraLAX 17 g daily p.r.n. 4. Omeprazole 20 mg b.i.d. 5. Mag-Ox 800 mg daily. 6. Insulin 70/30 15 units q.p.m. and 30 units in a.m. 7. Advair 100/50 one inhalation b.i.d. 8. Jardiance 10 mg daily. 9. Colace 100 mg b.i.d. 10. Digoxin 0.125 mg daily. 11. Vitamin B12 1000 mcg daily. 12. Lipitor 80 mg daily. 13. Aspirin 81 mg daily. 14. Allopurinol 100 mg b.i.d. 15. Albuterol inhaler on a p.r.n. basis. 16. Metoprolol that was restarted by Dr. Brar at an unknown dose as per the patient. ALLERGIES: No known drug allergies. FAMILY HISTORY: Father of pneumonia at the age of 83. Mother with history of diabetes. SOCIAL HISTORY: The patient lives with his , who is his surrogate. He is on disability. He has history of smoking half-a-pack per day. He denies any alcohol or drug use. He is not on oxygen at baseline, although Dr. Brar was considering for the patient to be placed on oxygen in the near future. REVIEW OF SYSTEMS: Please see history of present illness. In addition to above mentioned, the patient stated that he had been checking his weights on a daily basis and since his discharge, he checked it once and it was 178 pounds yesterday. All of the other 12 systems reviewed with the patient apart from the above mentioned and the ones mentioned in the history of present illness were negative. PHYSICAL EXAM: Blood pressure has ranged from systolic 67 to 108. Heart rate of 73 and irregular, respiratory rate 19, oxygen saturation 99% on 2 L of oxygen via nasal cannula, temperature of 97.3. General: The patient is a pleasant 57-year- old male, who is in no acute distress. The patient is alert and oriented x3. HEENT: Head: Atraumatic, normocephalic. Eyes: Pupils are equal and reactive to light and accommodation. Oropharynx clear. Mucosa moist. Neck: Supple. Positive for JVD bilaterally. Respiratory: Clear to auscultation bilaterally. Cardiovascular: Irregularly irregular rhythm. No murmur. Abdomen: Soft, mildly distended in bilateral upper quadrants with tenderness in the epigastric region and right upper quadrant with voluntary guarding. No rebound. Bowel sounds are present in all 4 quadrants. Extremities: There is trace bilateral ankle edema. Pulses are +2 bilaterally. There is no clubbing or cyanosis. Neuro Evaluation: Speech clear. Cranial nerves II through XII are grossly intact. Motor strength is 5/5 bilaterally. DIAGNOSTIC STUDIES/LAB DATA: Laboratory data showed sodium of 127, potassium of 4.5, chloride of 93, carbon dioxide 24, BUN 51, creatinine 1.73. Liver function tests showed bilirubin of 1.8, AST 35, ALT 40, alkaline phosphatase of 218. C- reactive protein of 50. Brain natriuretic peptide of 1418. Lipase of 14, amylase of 39. CBC: White blood cell count of 8.6, hemoglobin of 13.0, hematocrit of 39, and platelets of 157. INR was 2.88. The patient's EKG showed the patient's baseline atypical left bundle branch block and atrial fibrillation with a heart rate of 103 beats per minute. The patient's portable chest x-ray was read by the radiologist as "pulmonary vascular congestion." ASSESSMENT AND PLAN: The patient has a history of ischemic and nonischemic cardiomyopathy with EF of 20% and now comes in within 2 days of his discharge with exacerbation of congestive heart failure once again. He was already placed on pressors during his previous hospital stay. His systolic pressures at baseline as per my discussion with Dr. Brar, the patient's antique furniture restorer , are in the 80s. I discussed the case with Dr. Brar as well as Dr. Ruiz. Dr. Brar recommended for the patient to be placed on milrinone drip as well as Lasix drip and placed the patient in the intensive care unit. I discussed the case with Dr. Ruiz, our antique furniture restorer, who stated that the patient may benefit from biventricular pacer at this point with resynchronization. As per Dr. Brar, the patient in the past was evaluated in [place] for that and for some reason was not a good candidate for that. Nevertheless, due to his failing heart at this point, it would be valid to have that reassessed. The patient also had been seen in [place] at a heart transplant center, but apparently was taken off the list due to his history of smoking. He has refused in the past left ventricular assistive device. At this point, I discussed the case with Dr. Ruiz, who recommended for the patient to be transferred to [facility] for further management. I discussed the case with the bias cutting machine operator vertical at [facility], Dr. Burciaga, who kindly accepted the patient for the transfer. The case was also discussed with Dr. Monk in the emergency department, who facilitated the transfer. TIME SPENT: Approximately 90 minutes were spent in management and consultation of this patient in the emergency department. Thank you very much for allowing me to see your patient in consultation. [id number]/[facility] #: [id number] CHRIS
[2018-02-02] MEDS ORDERED: Midodrine (NF) 5 MG TAB PO ONE (10:32)
== END 2018-02-01 13:12 | disposition short-term general hospital (02) ==
LOC: ED 03:03 → UNDOADMOB 11:01 → MEDTELE 11:01 → ED 13:12
DX: I50.9 Heart failure, unspecified (principal); R10.9 Unspecified abdominal pain; I44.7 Left bundle-branch block, unspecified; I48.91 Unspecified atrial fibrillation; Z79.01 Long term (current) use of anticoagulants; J44.9 Chronic obstructive pulmonary disease, unspecified; F17.210 Nicotine dependence, cigarettes, uncomplicated
CPT/HCPCS: 36415; 71045; 74177; 80053; 80162; 81003; 81015; 82150; 83605; 83690; 83735; 83880; 85025; 85610; 85730; 86140; 87086; 93005; 96361; 96374; 96375; 99285; A9270-GY; J1940; J2260; J2270; J2405; J3010; Q9967

== ENCOUNTER 2018-02-22 02:18 | Observation (INO) | payer SELFPAY ==
--- NOTE | 2018-02-22 03:00 | ED ---
Complex/Multi-Sys Presentation - HPI Summary HPI Summary: This patient is a 57 year old M BIBA to [facility] accompanied by family with a chief complaint of uncontrolled pain (mainly in the abdomen) that began prior to arrival. The patient rates the pain 10/10 in severity. Symptoms aggravated by movement. Symptoms alleviated by nothing. Patient reports headache and bilateral leg pain. Family states patient is going to hospice care as of this afternoon, and he will be going into a hospice tomorrow. Sister reports they brought the patient home from [facility] today. Family requests no bloodwork and no IV lines. - History Of Current Complaint Chief Complaint: EDGeneral Time Seen by Provider: 02/22/18 02:24 Hx Obtained From: Patient Onset/Duration: Sudden Onset, Lasting Hours, Still Present Timing: Constant Severity Currently: Severe Severity Initially: Severe Aggravating Factor(s): Movement Alleviating Factor(s): Nothing Associated Signs And Symptoms: Positive: Headache, Other - Positive bilateral leg pain - Allergies/Home Medications Allergies/Adverse Reactions: Allergies Allergy/AdvReac Type Severity Reaction Status Date / Time No Known Allergies Allergy Verified 02/22/18 02:28 PMH/Surg Hx/FS Hx/Imm Hx Previously Healthy: No Endocrine/Hematology History: Reports: Hx Anticoagulant Therapy - coumadin, Hx Diabetes Denies: Hx Blood Disorders, Hx Blood Transfusions, Hx Bone Marrow Disease, Hx Systemic Lupus Erythematosus, Hx Sickle Cell Disease, Hx Thyroid Disease, Hx Anemia, Hx Unexplained Bleeding, Other Endocrine/Hematological Disorders Cardiovascular History: Reports: Hx Angioplasty, Hx Auto Implanted Cardiovert Defib - defibrillator, Hx Congestive Heart Failure, Hx Coronary Artery Disease, Hx Deep Vein Thrombosis - L leg, Hx Hypertension, Hx Pacemaker/ICD, Other Cardiovascular Problems/Disorders - Pt states one valve doesn't function anymore Denies: Hx Aneurysm, Hx Angina, Hx Cardiac Arrest, Hx Cardiomegaly, Hx Congenital Heart Disease, Hx Embolism, Hx Hypercholesterolemia, Hx Hypotension, Hx Peripheral Vascular Disease, Hx Rheumatic Fever, Hx Syncope, Hx Valvular Heart Disease Respiratory History: Reports: Hx Chronic Bronchitis - last couple of months not current, Hx Chronic Obstructive Pulmonary Disease (COPD), Hx Pneumonia - winter 2009, Hx Sleep Apnea - uses O2 to sleep at night Denies: Hx Asthma, Hx Cystic Fibrosis, Hx Lung Cancer, Hx Pleural Effusion, Hx Pulmonary Edema, Hx Pulmonary Embolism, Hx Seasonal Allergies, Other Respiratory Problems/Disorders GI History: Reports: Hx Hiatal Hernia, Other GI Disorders - hernia in upper abdomen Denies: Hx Cirrhosis, Hx Crohn's Disease, Hx Diverticulosis, Hx Gall Bladder Disease, Hx Gastroesophageal Reflux Disease, Hx Gastrointestinal Bleed, Hx Irritable Bowel, Hx Jaundice, Hx Obstructive Bowel, Hx Ileostomy, Hx Pyloric Stenosis, Hx Ulcer History: Denies: Hx Acute Renal Failure, Hx Benign Prostatic Hyperplasia, Hx Chronic Renal Failure, Hx Dialysis, Hx Kidney Infection, Hx Kidney Stones, Hx Renal Disease, Other Problems/Disorders Musculoskeletal History: Reports: Hx Gout, Other Musculoskeletal History - hiatal hernia Denies: Hx Arthritis, Hx Back Problems, Hx Orthopedic Injury Sensory History: Denies: Hx Cataracts, Hx Contacts or Glasses, Hx Eye Injury, Hx Eye Prosthesis, Hx Glaucoma, Hx Legally Blind, Hx Macular Degeneration, Hx Vision Problem, Hx Deafness, Hx Hearing Aid, Hx Hearing Problem, Other Sensory Impairments Opthamlomology History: Denies: Hx Cataracts, Hx Contacts or Glasses, Hx Eye Injury, Hx Eye Prosthesis, Hx Glaucoma, Hx Legally Blind, Hx Macular Degeneration, Hx Vision Problem, Other Sensory Impairments Neurological History: Reports: Hx Headaches - infrequently Denies: Hx Dementia, Hx Developmental Delay, Hx Migraine, Hx Nerve Disease, Hx Seizures, Hx Spinal Cord Injury, Hx Transient Ischemic Attacks (TIA), Other Neuro Impairments/Disorders Psychiatric History: Reports: Hx Substance Abuse - NONE X 5 YRS, Other Psychiatric Issues/Disorders - former alcoholic Denies: Hx Anxiety, Hx Attention Deficit Hyperactivity Disorder, Hx Eating Disorder, Hx Depression, Hx Panic Disorder, Hx Community Mental Health Tx, Hx Schizophrenia - Surgical History Surgery Procedure, Year, and Place: defibrillator. thrombectomy (lower leg scars) Hx Anesthesia Reactions: No Infectious Disease History: No Infectious Disease History: Denies: Hx Clostridium Difficile, Hx Hepatitis, Hx Human Immunodeficiency Virus (HIV), Hx of Known/Suspected MRSA, Hx Shingles, Hx Tuberculosis, Hx Known/ Suspected VRE, Hx Known/Suspected VRSA, Traveled Outside the [place] in Last 30 Days - Family History Known Family History: Positive: Cardiac Disease, Diabetes - Social History Occupation: Unemployed Lives: With Family Alcohol Use: None Hx Substance Use: Yes Substance Use Type: Reports: Cocaine Substance Use Comment - Amount & Last Used: past hx coccaine use Hx Tobacco Use: Yes Smoking Status (MU): Heavy Every Day Tobacco Smoker Type: Cigarettes Length of Time of Smoking/Using Tobacco: 41 years Have You Smoked in the Last Year: Yes Review of Systems Positive: Abdominal Pain Positive: Other - Bilatera LE pain Positive: Headache All Other Systems Reviewed And Are Negative: Yes Physical Exam - Summary Physical Exam Summary: Appearance: Well appearing, no pain distress, lethargic Skin: warm, dry, reflects adequate perfusion Head/face: normal Eyes: EOMI, AMANDA ENT: normal Neck: supple, non-tender Respiratory: CTA, breath sounds present Cardiovascular: RRR, pulses symmetrical Abdomen: diffuse tenderness, soft Bowel: present Musculoskeletal: bilateral pedal edema, strength/ROM intact Neuro: normal, sensory motor intact, A&Ox3 Triage Information Reviewed: Yes Vital Signs On Initial Exam: Initial Vitals Temp Pulse Resp BP Pulse Ox 97.3 F 105 32 92/67 0 02/22/18 02:21 02/22/18 02:21 02/22/18 02:21 02/22/18 02:21 02/22/18 02:21 Vital Signs Reviewed: Yes Diagnostics - Vital Signs Vital Signs Temp Pulse Resp BP Pulse Ox 02/22/18 02:21 97.3 F 105 32 92/67 0 - Laboratory Lab Statement: Any lab studies that have been ordered have been reviewed, and results considered in the medical decision making process. Complex Multi-Symp Course/Dx Course Of Treatment: This patient is a 57 year old M BIBA to [facility] accompanied by family with a chief complaint of uncontrolled pain (mainly in the abdomen) that began prior to arrival. Family states patient is going to hospice care as of this afternoon, and he will be going into a hospice tomorrow. Physical Exam Findings: Alert and lethargic, bilateral pedal edema, abdomen diffuse tenderness. In the ED course the patient was given hydromorphone. Consult with Dr. Montoya (hospitalist) at 0320. She agrees to admit patient for further evaluation. The patient is agreeable with this plan. - Diagnoses Differential Diagnoses/HQI/PQRI: Metabolic Abnormality, Other - CHF/hospice Provider Diagnoses: Generalized pain - Physician Notifications Discussed Care Of Patient With: Christa Montoya Time Discussed With Above Provider: 03:20 Instructed by Provider To: Other - Consult with Dr. Montoya (hospitalist) at 0320. She agrees to admit patient for further evaluation. Discharge - Sign-Out/Discharge Documenting (check all that apply): Patient Departure - Admit to [facility] - Discharge Plan Condition: Stable Disposition: ADMITTED TO [facility] Referrals: Jamari Rangel MD [Primary Care Provider] - - Billing Disposition and Condition Condition: STABLE Disposition: Admitted to [facility] - Attestation Statements Document Initiated by Scribe: Yes Documenting Scribe: Olga Jung Provider For Whom Scribe is Documenting (Include Credential): Orlando Billy MD Scribe Attestation: Olga Kearns, scribed for Orlando Billy MD on 02/22/18 at 0358. Scribe Documentation Reviewed: Yes Provider Attestation: The documentation as recorded by the annaibOlga mcnamara accurately reflects the service I personally performed and the decisions made by , Orlando Billy MD
[2018-02-22] MEDS ORDERED: HYDROmorphone INJ* 2 MG/ML CARPUJECT SYRINGE IM ONE (03:02)
[2018-02-22] MEDS ORDERED: HYDROmorphone INJ1* 1 MG/ML SYRINGE ONE (03:05)
[2018-02-22] MEDS ORDERED: HYDROmorphone INJ1* 1 MG/ML SYRINGE IV SLOW PU ONE (03:19)
[2018-02-22] MEDS ORDERED: Morphine INJ* 4 MG/ML 1 ML SYRINGE (NEW SYRINGE VERSION) IV PRN (03:30)
[2018-02-22] MEDS ORDERED: Ondansetron INJ* 2 MG/ML VIAL IV PRN (03:30)
[2018-02-22] MEDS ORDERED: Atropine 1% (ORAL/SL)* 15 ML BTL SL PRN (03:33)
[2018-02-22] MEDS ORDERED: LORazepam INJ* 2 MG/ML 1 ML VIAL IV PUSH PRN (03:34)
[2018-02-22 06:07] VITALS: BP 79/61
--- NOTE | 2018-02-22 06:53 | HP ---
CC: Dr. Rangel; Dr. Hernandez, [facility]; Dr. Brar; Dr. Ruiz * HISTORY AND PHYSICAL: DATE OF ADMISSION: 02/22/18 PRIMARY CARE PROVIDER: Dr. Rangel. CHIEF COMPLAINT: Abdominal pain, shortness of breath. HISTORY OF PRESENT ILLNESS: Jovanni Cam is a 57-year-old male with history of cardiomyopathy with EF of 20% as well as CHF and chronic intractable abdominal pain when in CHF, who spent the past 3 weeks hospitalized. First, he was transferred on 02/01/18 from our facility's ER to [facility]. There he spent a few days and subsequent 2 weeks he spent at [facility] where he was transferred to [facility]. The patient's sister, who is the main source of information since the patient is sedated on narcotics at this point stated that the patient was discharged from [facility] approximately 6 days ago, but within a day or so he had to go back to [facility] because of uncontrollable symptoms. At that point, physicians at [facility] recommended for the patient to be placed on comfort care in hospice. He was essentially discharged from [facility] on 02/21/18 on p.o. Dilaudid and lorazepam. He was admitted to outpatient hospice on the same day. Unfortunately, his pain was unable to be controlled as outpatient and the family brought patient to the ED for continuation of treatment of his comfort care. Patient complains of pain all over, specifically worse in abdomen, as well as shortness of breath. PAST MEDICAL HISTORY: 1. History of nonischemic cardiomyopathy with EF of 20%. 2. Status post ICD placement in 2012. 3. History of ongoing tobacco abuse. 4. Hypertension. 5. Hyperlipidemia. 6. History of chronic atrial fibrillation. 7. History of coronary artery disease, status post stenting in the past. 8. History of iliofemoral thrombectomy. 9. History of CVA x2. 10. Lower extremity DVT in the past. 11. Recurrent abdominal pain and right upper quadrant abdominal pain due to gallbladder wall edema whenever the patient has a CHF. 12. History of gout. 13. Chronic kidney disease, stage 3, due to diabetes. 14. History of diabetes, insulin dependent. MEDICATIONS: At home, include: 1. Dilaudid 1 mg p.o. every hour p.r.n., was just increased prior to patient presenting to the emergency department up to 2 mg p.o. every 1 hour p.r.n. 2. Patient is also on lorazepam on p.r.n. basis. FAMILY HISTORY: Noncontributory in this comfort care patient. SOCIAL HISTORY: The patient is currently still smoking several cigarettes a day. There is no history of significant alcohol or drug use. His surrogate decision maker is his sister, Sandra Mckenna. REVIEW OF SYSTEMS: Please note that the patient is sedated on narcotics. He complains of abdominal pain and shortness of breath. All the remaining 12 systems were reviewed with the patient and patient's sister and apart from bilateral lower extremity edema that had been getting worse for the past several days were negative. PHYSICAL EXAMINATION GENERAL: The patient is a very pleasant 57-year-old male, who is in no acute distress. Alert, awake, and oriented x2. Appeared lethargic and falls asleep in mid sentence. VITAL SIGNS: Blood pressure of 92/67, heart rate of 105 and irregular, respiratory rate 32, oxygen saturation was unable to be obtained, temperature of 97.3. HEENT: Head: Atraumatic, normocephalic. Eyes: Pupils are equal and reactive to light and accommodation. Oropharynx is clear. Mucosa dry. NECK: Supple. Positive for JVD bilaterally. RESPIRATORY: Coarse rhonchi in bilateral mid lungs and rales bilateral bases. ABDOMEN: Slightly distended, soft, tender in the epigastric region with no rebound, no guarding. Bowel sounds are present in all 4 quadrants. EXTREMITIES: There is +3 pitting pedal edema. Pulses still not palpable due to pedal edema but the lower extremities have good capillary refill. They are cold to touch though. SKIN: On evaluation of the skin, multiple ecchymotic areas on his bilateral upper and lower extremities. Petechial like skin abnormality noted on the dorsal aspect of both feet. PSYCHIATRIC EVALUATION: The patient is oriented x2. He cannot recall the exact date due to recent treatment with narcotics in the emergency department and lethargy. Otherwise, he is pleasant and cooperative with evaluation. DIAGNOSTIC STUDIES/LAB DATA: Not obtained due to comfort care. ASSESSMENT AND PLAN: Jovanni Cam is a 57-year-old unfortunate male with history of end-stage heart disease and congestive heart failure, who was placed on home hospice within the past 24 hours and came into the ED for uncontrollable pain. The patient is requesting to be admitted to the hospital for comfort care. Dilaudid IV is going to be provided as well as morphine oral concentrate and lorazepam on a p.r.n. basis. We will ask Palliative Care/ Hospice to see the patient in consultation for likely admission to inpatient hospice. The patient's code status is comfort care, DNR/DNI that was re-established with his sister since the patient did not bring his MOLST from home. That was signed by the sister in the presence of patient. DVT prophylaxis is not applicable due to patient being comfort care. TIME SPENT: Approximately 65 minutes was spent on admission of this patient, more than half that time was spent [id number] with the patient during the interview and physical exam. [id number]/[facility] #: [id number] MTDD
[2018-02-22] MEDS: Morphine ORAL CONCENTRATE* 5 MG/0.25 ML ORAL.SYRIN SL PRN ×2 (09:25→11:53)
--- NOTE | 2018-02-23 05:13 | DS ---
CC: Dr. Rangel; Dr. Hernandez expert medical writer at [facility]; Dr. Brar; Dr. Ruiz.* DISCHARGE SUMMARY: DATE OF ADMISSION: 02/22/18 DATE OF DISCHARGE: 02/22/18 PRIMARY CARE PROVIDER: Dr. Rangel. CARDIOLOGISTS: Dr. Brar and Dr. Ruiz. DISCHARGE DIAGNOSES: 1. End-stage congestive heart failure. 2. Non-ischemic cardiomyopathy with ejection fraction 20%. 3. Status post ICD placement. 4. Tobacco abuse. 5. Hypertension. 6. Hyperlipidemia. 7. Atrial fibrillation. 8. Coronary artery disease, status post sents. 9. Status post iliofemoral thrombectomy. 10. History of cerebrovascular accident. 11. History of deep vein thrombosis. 12. Gout. 13. Chronic kidney disease stage 3 with diabetic nephropathy. 14. Insulin-dependent diabetes. MEDICATION LIST: 1. Morphine oral concentrate 10 mg sublingual q.2 hours p.r.n. pain or tachypnea with heart rate greater than 24, dispensed 60 mL, MDD 120 mg. 2. Lorazepam 1 mg sublingual q.4 hours p.r.n. anxiety or agitation, dispensed 30 tablets, MDD 6 mg. 3. Atropine 1% 2 drops sublingual q. 2 hours for terminal secretions. HOSPITAL COURSE: Mr. Cam is a 57-year-old male with past medical history as stated above who has spent the past three weeks hospital life. He was transferred from our facility's ER on 02/01/18 to [facility]. He was admitted there and was then transferred to [facility] for 2 weeks. He was discharged from [facility] a week ago but had to go back there in one day due to uncontrollable symptoms. At that point, the patient was placed on hospice and discharged home on 02/21/18 with p.o. Dilaudid and lorazepam. Unfortunately, his symptoms could not be controlled at home and on the same day the family brought him to the emergency room for continuation of hospice care. The patient received Dilaudid with control of his symptoms and he is now sedated. He has a bed available at the [facility] residence and he will be transferred to that facility to continue his hospice care. PHYSICAL EXAMINATION: Vital Signs: Temperature 98.3, heart rate is 112, oxygen saturation 92% on 2 L, respiratory rate 20, blood pressure 79/61. General: The patient is an elderly gentleman lying in bed, sedated, not in acute distress. CVS: S1, S2 present. Irregularly irregular. Chest: Breath sounds bilaterally with crackles and rhonchi. Abdomen is soft, bowel sounds are present. Extremities: There is severe bilateral extremity pitting edema. Neuro: He is sedated, not responsive to voice or touch. DIET: Regular diet for comfort if the patient becomes more awake. STATUS WHILE IN THE HOSPITAL: Observation. DISPOSITION: The [facility] residence. Please keep in mind this is a summarized version of this patient's hospital stay. If you need more information, please feel free to call me at [phone] or please obtain the full medical records. TIME SPENT: Approximately 40 minutes was spent to complete this discharge. [id number]/PAVAN #: [id number] CHRIS
== END 2018-02-22 12:00 | disposition hospice, inpatient (51) ==
LOC: ED 02:18 → MED 03:30
PROVIDERS: ADMIT Internal Medicine; ATTEND Internal Medicine
DX: I50.84 End stage heart failure (principal); I42.8 Other cardiomyopathies; Z95.0 Presence of cardiac pacemaker; I10 Essential (primary) hypertension; E78.5 Hyperlipidemia, unspecified; I48.91 Unspecified atrial fibrillation; I25.10 Atherosclerotic heart disease of native coronary artery without angina pectoris; Z95.5 Presence of coronary angioplasty implant and graft; Z95.820 Peripheral vascular angioplasty status with implants and grafts; Z86.73 Personal history of transient ischemic attack (TIA), and cerebral infarction without residual deficits; Z86.718 Personal history of other venous thrombosis and embolism; M10.9 Gout, unspecified; E11.22 Type 2 diabetes mellitus with diabetic chronic kidney disease; N18.3 Chronic kidney disease, stage 3 (moderate); Z79.4 Long term (current) use of insulin; R10.9 Unspecified abdominal pain; Z79.01 Long term (current) use of anticoagulants; F17.210 Nicotine dependence, cigarettes, uncomplicated
CPT/HCPCS: 96372; 96375; 96376; 99282; G0378; J1170